=== PATIENT | male | born 1945 | race Caucasian/White ===

== ENCOUNTER 2017-03-09 15:51 | Observation (INO) ==
[2017-03-09 16:57] LABS: Basophils % 0.5 %; Eosinophils # 0.2 K/mcL (0.0-0.6); Eosinophils % 3.9 %; Hematocrit 45.5 % (37.5-50.1); Hemoglobin 15.2 g/dL (12.9-16.9); Immature Granulocytes % 0.3 % (0-4); Lymphocytes # 2.2 K/mcL (0.6-4.6); Lymphocytes % 34.8 %; Mean Corpuscular HGB Conc 33.4 g/dL (31.6-35.5); Mean Corpuscular Hemoglobin 30.5 pg (28.0-33.3); Mean Corpuscular Volume 91.2 fL (83.0-100.0); Mean Platelet Volume 9.7 fL (9.4-12.4); Monocytes # 0.3 K/mcL (0.0-1.3); Neutrophils # 3.4 K/mcL (1.6-8.9); Platelet Count 216 K/mcL (140-400); Red Blood Count 4.99 M/mcL (4.19-5.50); Red Cell Distribution Width 13.1 % (11.5-14.5); Segmented Neutrophils % 55.5 %
[2017-03-09 16:59] LABS: INR 1.2; Prothrombin Time 12.5 Seconds (9.4-12.1)
[2017-03-09 17:02] LABS: Activated Partial Thrombo Time 32.2 Seconds (26.0-36.0)
[2017-03-09 17:12] LABS: Albumin 3.9 g/dL (3.5-5.0); Albumin/Globulin Ratio 1.2 (1.1-2.2); BUN/Creatinine Ratio 13 (6-26); Bilirubin,Direct 0.3 mg/dL (0.0-0.5); Bilirubin,Indirect 0.4 mg/dL (0.0-1.2); Bilirubin,Total 0.7 mg/dL (0.2-1.2); Blood Urea Nitrogen 13 mg/dL (8-26); Calcium 9.2 mg/dL (8.6-10.8); Carbon Dioxide 26 mEq/L (19-29); Chloride 101 mEq/L (98-109); Globulin 3.3 g/dL (2.4-3.5); Glucose 91 mg/dL (70-99); Osmolality,Calculated 282 (280-300); Potassium 4.4 mEq/L (3.5-4.5); Sodium 136 mEq/L (136-145); Total Protein 7.2 g/dL (6.0-8.3); eGFR For African Americans > 60 (> 60); eGFR For Non-African Americans > 60 (> 60)
[2017-03-09] MEDS ORDERED: Nitroglycerin 0.4 MG TAB.SUBL SL STA (18:01)
--- NOTE | 2017-03-09 18:23 | Emergency Department Note ---
Disposition Clinical Impression: Chest pain Qualifiers: Ischemic chest pain type: stable angina pectoris Disposition: Admitted As Inpatient Referrals: Miguel Ball MD [Primary Care Provider] - Forms: ED Satisfaction Letter Chest Pain HPI - General Chief Complaint: ED Chest Pain Stated Complaint: chest pain// numb on left of face Time Seen by Provider: 03/09/17 16:02 Source: patient Limitations: no limitations Vital Signs Reviewed: Yes Nursing Notes Reviewed: Yes - History of Present Illness Pt complaint: chest pain Onset (ago): day(s) (2) Duration: intermittent Onset: during rest Pain Location: substernal Severity scale (1-10): 4 Quality: heaviness Pain Radiation: LUE, back, neck Improves with: nothing Worsens with: nothing Associated symptoms: Reports: sense of impending doom. Denies: nausea, vomiting , diaphoresis, syncope, palpitations Treatments prior to arrival chest pain: aspirin - Related Data Home Medications Medication Instructions Recorded Confirmed Albuterol Sulfate [Proair Hfa] 2 puff IH Q6H PRN 07/22/16 07/28/16 Aspirin 81 mg PO DAILY 07/22/16 07/28/16 Atorvastatin [Lipitor] 40 mg PO HS 07/22/16 07/28/16 Carvedilol [Coreg] 6.25 mg PO BIDWM 07/22/16 07/28/16 Cetirizine HCl [Zyrtec] 10 mg PO DAILY 07/22/16 07/28/16 Clopidogrel [Plavix] 75 mg PO DAILY 07/22/16 07/28/16 Docusate Sodium [Dok] 100 mg PO BID PRN 07/22/16 07/28/16 Esomeprazole Magnesium [Nexium] 40 mg PO DAILY 07/22/16 07/28/16 Fluticasone/Salmeterol [Advair 1 puff IH Q12H 07/22/16 07/28/16 250-50 Diskus] Ipratropium/Albuterol Neb [Duoneb] 3 ml IH QID PRN 07/22/16 07/28/16 Nitroglycerin [Nitro-Dur] 1 patch TD Q24H 07/22/16 07/28/16 OxyCODONE/APAP 7.5/325 [Percocet 1 each PO Q6H PRN 07/22/16 07/28/16 7.5/325 MG] Tiotropium [Spiriva] 1 cap IH DAILY 07/22/16 07/28/16 diazePAM [Valium] 10 mg PO BID 07/22/16 07/28/16 Ropinirole HCl [Requip] 0.5 mg PO HS 07/28/16 07/28/16 Previous Rx's Medication Instructions Recorded Ranolazine [Ranexa] 500 mg PO BID #60 tab.er.12h 07/23/16 levoFLOXacin [Levofloxacin] 750 mg PO DAILY #7 tablet 07/23/16 predniSONE [PredniSONE] 40 mg PO DAILY #10 tablet 07/23/16 Allergies Allergy/AdvReac Type Severity Reaction Status Date / Time venlafaxine [From Effexor] AdvReac Vomiting Verified 01/21/16 10:43 All systems ED: reviewed and negative except as stated. Constitutional: Denies: fever, chills, weakness Cardiovascular: Reports: chest pain Gastrointestinal: Denies: nausea, vomiting Chest Pain PMH - Past Medical History Medical history: Reports: COPD, coronary artery disease, CVA, GERD, hyperlipidemia, hypertension, myocardial infarction, other Surgical history: Reports: coronary bypass (CABG), LE stent(s) Psychiatric history: Reports: anxiety, depression - Social History Smoking Status: Current every day smoker Alcohol use: Reports: none Drug use: Reports: none Physical Exam - General Limitations: no limitations General appearance: alert - Head Head exam: atraumatic, normocephalic, normal inspection - Eye Eye exam: Present: normal appearance, PERRL, EOMI - Expanded Eye Exam Pupils: Left: reactive - ENT ENT exam: normal exam, normal oropharynx, mucous membranes moist - Expanded ENT Exam External ear exam: Present: normal external inspection Mouth exam: Present: normal external inspection Teeth exam: Present: normal inspection Throat exam: Present: normal inspection - Neck Neck exam: Present: normal inspection, full ROM, trachea midline - Chest Chest inspection: Present: normal inspection, symmetric chest wall rise - Respiratory Respiratory exam: Present: normal lung sounds bilaterally - Cardiovascular Cardiovascular exam: Present: regular rate, normal rhythm, normal heart sounds - Abdominal Exam Abdominal exam: Present: soft, Non-Tender. Absent: tenderness, distention, guarding, rebound, rigidity - Extremities Exam Extremities exam: Present: normal inspection, full ROM. Absent: tenderness, pedal edema - Expanded Upper Extremity Exam Shoulder exam: Present: normal inspection, full ROM Arm exam: Present: normal inspection, full ROM Elbow exam: Present: normal inspection, full ROM Forearm/Wrist exam: Present: normal inspection, full ROM Hand exam: Present: normal inspection, full ROM Vascular exam: Normal: capillary refill, radial pulse - Expanded Lower Extremity Exam Hip/Pelvis exam: Present: normal inspection, full ROM Upper leg exam: Present: normal inspection, full ROM Knee exam: Present: normal inspection, full ROM Lower leg exam: Present: normal inspection, full ROM Ankle exam: Present: normal inspection, full ROM Foot/toe exam: Present: normal inspection, full ROM Neurovascular/Tendon exam: Absent: motor deficit, sensory deficit, tendon deficit - Back Exam Back exam: Present: normal inspection, full ROM. Absent: tenderness - Neurological Exam Neurological exam: Present: alert, oriented X3 - Expanded Neurological Exam Patient oriented to: Present: person, place, time Coma Scale Eye Opening: Spontaneous Coma Scale Motor Response: Obeys Commands Coma Scale Verbal Response: Oriented Coma Scale Total: 15 - Psychiatric Psychiatric exam: Present: normal affect, normal mood - Skin Skin exam: Present: warm, dry, intact, normal color Course Vital Signs Temperature 97.4 F L 03/09/17 15:55 Pulse Rate 73 03/09/17 15:55 Respiratory Rate 18 03/09/17 15:55 Blood Pressure 131/77 03/09/17 15:55 O2 Sat by Pulse Oximetry 96 03/09/17 15:55 Temperature 97.4 F L 03/09/17 15:55 Pulse Rate 63 03/09/17 18:06 Respiratory Rate 18 03/09/17 18:06 Blood Pressure 124/90 03/09/17 18:06 O2 Sat by Pulse Oximetry 97 03/09/17 18:06 Oxygen Delivery Oxygen Delivery Room Air Chest Pain - Differential Diagnosis Likely: stable angina, unstable angina pectoris, atypical chest pain, st elevation myocardial infraction, chest pain - Medical Records Medical records reviewed: Yes I reviewed the patient's medical records. - Lab Data Lab results reviewed: Yes I reviewed the patient's lab results. Result diagrams: 03/09/17 16:38 03/09/17 16:38 Lab Results 03/09/17 03/09/17 03/09/17 Range/Units 16:38 16:38 16:38 WBC (4.3-11.1) K/mcL RBC (4.19-5.50) M/mcL Hgb (12.9-16.9) g/dL Hct (37.5-50.1) % MCV (83.0-100.0) fL MCH (28.0-33.3) pg MCHC (31.6-35.5) g/dL RDW (11.5-14.5) % Plt Count (140-400) K/mcL MPV (9.4-12.4) fL Immature Gran % (0-4) % Seg Neutrophils % % Lymphocytes % % Monocytes % % Eosinophils % % Basophils % % Neutrophils # (1.6-8.9) K/mcL Lymphocytes # (0.6-4.6) K/mcL Monocytes # (0.0-1.3) K/mcL Eosinophils # (0.0-0.6) K/mcL Basophils # (0.0-0.2) K/mcL PT 12.5 H (9.4-12.1) Seconds INR 1.2 APTT 32.2 (26.0-36.0) Seconds Sodium (136-145) mEq/L Potassium (3.5-4.5) mEq/L Chloride (98-109) mEq/L Carbon Dioxide (19-29) mEq/L BUN (8-26) mg/dL Creatinine (0.72-1.25) mg/dL Est GFR ( Amer) (> 60) Est GFR (Non-Af Amer) (> 60) BUN/Creatinine Ratio (6-26) Glucose (70-99) mg/dL Calculated Osmolality (280-300) Calcium (8.6-10.8) mg/dL Total Bilirubin 0.7 (0.2-1.2) mg/dL Direct Bilirubin 0.3 (0.0-0.5) mg/dL Indirect Bilirubin 0.4 (0.0-1.2) mg/dL AST 18 (5-34) Units/L ALT 14 (0-55) Units/L Alkaline Phosphatase 100 (38-126) Units/L Troponin I (0-0.03) ng/mL B-Natriuretic Peptide 38 (0-100) pg/mL Serum Total Protein 7.2 (6.0-8.3) g/dL Albumin 3.9 (3.5-5.0) g/dL Globulin 3.3 (2.4-3.5) g/dL Albumin/Globulin Ratio 1.2 (1.1-2.2) 03/09/17 03/09/17 03/09/17 Range/Units 16:38 16:38 16:38 WBC 6.2 (4.3-11.1) K/mcL RBC 4.99 (4.19-5.50) M/mcL Hgb 15.2 (12.9-16.9) g/dL Hct 45.5 (37.5-50.1) % MCV 91.2 (83.0-100.0) fL MCH 30.5 (28.0-33.3) pg MCHC 33.4 (31.6-35.5) g/dL RDW 13.1 (11.5-14.5) % Plt Count 216 (140-400) K/mcL MPV 9.7 (9.4-12.4) fL Immature Gran % 0.3 (0-4) % Seg Neutrophils % 55.5 % Lymphocytes % 34.8 % Monocytes % 5.0 % Eosinophils % 3.9 % Basophils % 0.5 % Neutrophils # 3.4 (1.6-8.9) K/mcL Lymphocytes # 2.2 (0.6-4.6) K/mcL Monocytes # 0.3 (0.0-1.3) K/mcL Eosinophils # 0.2 (0.0-0.6) K/mcL Basophils # 0.0 (0.0-0.2) K/mcL PT (9.4-12.1) Seconds INR APTT (26.0-36.0) Seconds Sodium 136 (136-145) mEq/L Potassium 4.4 (3.5-4.5) mEq/L Chloride 101 (98-109) mEq/L Carbon Dioxide 26 (19-29) mEq/L BUN 13 (8-26) mg/dL Creatinine 1.02 (0.72-1.25) mg/dL Est GFR ( Amer) > 60 (> 60) Est GFR (Non-Af Amer) > 60 (> 60) BUN/Creatinine Ratio 13 (6-26) Glucose 91 (70-99) mg/dL Calculated Osmolality 282 (280-300) Calcium 9.2 (8.6-10.8) mg/dL Total Bilirubin (0.2-1.2) mg/dL Direct Bilirubin (0.0-0.5) mg/dL Indirect Bilirubin (0.0-1.2) mg/dL AST (5-34) Units/L ALT (0-55) Units/L Alkaline Phosphatase (38-126) Units/L Troponin I 0.01 (0-0.03) ng/mL B-Natriuretic Peptide (0-100) pg/mL Serum Total Protein (6.0-8.3) g/dL Albumin (3.5-5.0) g/dL Globulin (2.4-3.5) g/dL Albumin/Globulin Ratio (1.1-2.2) - Radiology Data Radiology results reviewed: Yes I reviewed the patient's radiology results. - EKG Data EKG attestation: Yes I reviewed and interpreted this EKG. EKG shows normal: sinus rhythm Rate: normal Rhythm: NSR [place]/QRS: left axis deviation, LBBB Interpretation: no acute changes
[2017-03-09] MEDS ORDERED: Naloxone 0.4 MG/ML INJ IVP PRN (19:45)
[2017-03-09] MEDS ORDERED: *HR* OxyCODONE/APAP 7.5/325 TABLET PO PRN (19:46)
[2017-03-09] MEDS ORDERED: diazePAM 10 MG TABLET PO PRN (19:46)
[2017-03-09] MEDS ORDERED: Ondansetron ODT 4 MG TAB.RAPDIS PO PRN (19:46)
--- NOTE | 2017-03-09 20:47 | Internal Med History&Physical ---
Date of Encounter: 03/09/17 Time of Encounter: 20:44 Assessment and Plan (1) Chest pain Current visit: Yes Status: Acute Patient presenting with increasing fatigue, chest pressure on and off for the last few weeks, and had stabbing, sharp chest pain today. EKG with no ST changes and initial troponin negative at 0.01. Patient with history of CAD s/ p 2 vessel CABG in 2000 and stent placement in 2004. Patient had abnormal stress test07/23/16, which showed mild-moderate ischemia in the mid-apical anterior wall. He was started on Ranexa at that time, and a LHC was considered, but his symptoms improved after starting Ranexa. Other recent cardiac testing shows: LHC 04/28/14: LVEF 50%, 2 of 2 patent bypass grafts, MARTIN to LAD patent, distal LAD very small and diffusely diseased. TTE 04/15/15: LVEF 50%, moderate diastolic dysfunction, normal RV, mildly dilated LA, no significant valvular dysfunction Regadenoson nuclear stress 04/15/15: LVEF 50%, small apical infarct, negative for ischemia Continuous shelter monitor serial troponins Consult to Cardiology given significant history and abnormal stress test in 2015. NPO after midnight for possible procedure tomorrow. Qualifiers: Chest pain type: chest pain due to myocardial ischemia Ischemic chest pain type: unspecified angina pectoris type Qualified Code(s): I20.9 - Angina pectoris, unspecified (2) Tobacco abuse Current visit: No Status: Chronic Patient continues to smoke about 1/2 PPD, despite being aware of medical consequences. Discussed smoking cessation, patient not ready to quit. smoking cessation education ordered. Nicotine patch. (3) Coronary artery disease Current visit: No Status: Chronic Patient with CAD s/p CABG 2000 and stent placement 2004. Continue aspirin, plavix, atorvastatin and Ranexa. Qualifiers: Coronary Disease-Associated Artery/Lesion type: teller artery [place] vs. transplanted heart: teller heart Associated angina: with unstable angina Qualified Code(s): I25.110 - Atherosclerotic heart disease of teller coronary artery with unstable angina pectoris (4) DVT prophylaxis Current visit: Yes Status: Acute anti-embolic stockings lovenox 40mg SQ daily Internal Medicine - H&P: HPI Chief complaint: chest pain Admitted From: Emergency Dept Plans for Post Hospital Care: Home History of present illness: Mr. Alarcon is a 72 year old male with hypertension, hyperlipidemia, COPD, coronary artery disease status post two-vessel bypass and stent placement presented to the emergency department today with complaints of chest pain. Patient reports that over the last couple weeks he has felt more fatigued, he has had chest pressure on and off, his legs have been hurting, he has had headaches. He reports that today he developed actual chest pain that was sharp and stabbing on top of the pressure that he has been feeling on and off. Accompanying this chest pain is the left side of his face felt funny. Patient reports occasional lightheadedness today as well. He reports he has shortness of breath but is not any worse than his usual baseline. He has a cough chronically also not any worse than his usual baseline. He denies any palpitations. Evaluation in the emergency department including EKG showed normal sinus rhythm, left axis deviation and left bundle branch block but no acute changes from previous. Chest x-ray showed no acute cardiopulmonary process. Troponin was negative at 0.01, BNP was normal at 38. On exam, patient alert and oriented, in no acute distress. Heart had regular rate and rhythm lungs were clear bilaterally to auscultation, he had no edema in extremities. Past Med Surg Social Fam HX - Past Medical History Medical history: COPD, coronary artery disease, CVA, GERD, hyperlipidemia, hypertension, myocardial infarction, other Psychiatric history: anxiety, depression - Past Surgical History Surgical History: coronary bypass (CABG), LE stent(s) - Social History Smoking Status: Current every day smoker Packs per day: 1/2 Smokeless Tobacco Status: No Alcohol use: none Drug use: none - Family History Brother Age at : 33 Cause of : [place] Hx Family Cardiac Disorders: Yes ([place], [place]) Hx Family Respiratory Disorders: No Hx Family Cancer: No Hx Family GI Disorders: No Hx Family Genitourinary Disorders: No Hx Family Endocrine Disorder: No Hx Family Musculoskeletal Disorders: No Hx Family Neuromuscular Disorders: No Hx Family Neurologic Disorders: No Hx Family HEENT Disorders: No Hx Family Autoimmune Disorders: No Hx Family Reproductive Disorders: No Hx Family Psychosocial Disorders: No Hx Family Medical Disorders: No Mother Living Status: Age at : 62 Cause of : cancer Hx Family Cancer: Yes Internal Medicine - H&P: Meds Albuterol Sulfate [Proair Hfa] 2 puff IH Q6H PRN 07/22/16 [History] Aspirin 81 mg PO DAILY 07/22/16 [History] Atorvastatin [Lipitor] 40 mg PO HS 07/22/16 [History] Carvedilol [Coreg] 6.25 mg PO BIDWM 07/22/16 [History] Cetirizine HCl [Zyrtec] 10 mg PO DAILY 07/22/16 [History] Clopidogrel [Plavix] 75 mg PO DAILY 07/22/16 [History] Esomeprazole Magnesium [Nexium] 40 mg PO DAILY 07/22/16 [History] Fluticasone/Salmeterol [Advair 250-50 Diskus] 1 puff IH Q12H 07/22/16 [History] Ipratropium/Albuterol Neb [Duoneb] 3 ml IH BID 07/22/16 [History] OxyCODONE/APAP 7.5/325 [Percocet 7.5/325 MG] 1 each PO Q6H PRN 07/22/16 [History ] Tiotropium [Spiriva] 18 mcg IH DAILY 07/22/16 [History] diazePAM [Valium] 10 mg PO BID PRN 07/22/16 [History] Ranolazine [Ranexa] 500 mg PO BID #60 tab.er.12h 07/23/16 [Rx] Nitroglycerin 0.2 mg TD DAILY 03/09/17 [History] Ondansetron HCl [Zofran] 4 - 8 mg PO TIDAC PRN 03/09/17 [History] Allergies venlafaxine [From Effexor] Adverse Reaction (Verified 01/21/16 10:43) Vomiting All Systems PM: A 10-system review of systems was performed and is negative for pertinent findings except as documented above in the HPI. - Constitutional Constitutional: fatigue, no chills, no fever(s), no night sweats - EENT Eyes: no change in vision, no discharge, no pain, no photophobia Ears: no ear discharge, no ear pain, no tinnitus Nose, mouth and throat: no dysphagia, no nasal discharge, no neck pain, no sore throat - Cardiovascular Cardiovascular ROS IM: chest pain, dyspnea, dyspnea on exertion, lightheadedness , no diaphoresis, no palpitations, no syncope - Respiratory Respiratory: cough, dyspnea, no wheezing, no excessive phlegm production - Gastrointestinal Gastrointestinal: no abdominal pain, no diarrhea, no hematemesis, no hematochezia, no melena, no nausea, no vomiting - Musculoskeletal Musculoskeletal ROS IM: tingling (left side of face), no numbness - Integumentary Integumentary IM: no rash, no unusual bruising - Neurological Neurological ROS: no confusion, no convulsions, no focal weakness, no numbness, no tingling, no tremor(s) - Hematologic/Lymphatic Hematologic/Lymphatic: no easy bruising - Constitutional Vitals: Temp Pulse Resp BP Pulse Ox 97.7 F 68 18 115/46 94 03/09/17 19:38 03/09/17 19:38 03/09/17 19:38 03/09/17 19:38 03/09/17 19:38 General appearance: Present: A&O X 3, pleasant, no acute distress - Head Head exam: Present: atraumatic, normocephalic - Eye Eye exam: Present: PERRL, conjuntiva pink, sclera anicteric Pupils: Present: PERRL - Neck Neck exam general surgery: Present: supple, trachea midline. Absent: lymphadenopathy - Respiratory Respiratory exam: Present: CTAB. Absent: accessory muscle use, rales, rhonchi, wheezes - Cardiovascular Cardiovascular exam: Present: RRR, +S1, +S2. Absent: diastolic murmur, gallop, rubs, systolic murmur - GI/Abdominal GI/Abdominal exam: Present: normal bowel sounds, soft, no peritoneal signs. Absent: distended, tenderness - Extremities Exam Extremities exam: Present: warm, radial pulses palpable and symetrical. Absent : calf tenderness, cyanotic, pedal edema - Neurological Exam Neurological exam: Present: CN II-XII intact, oriented X3, no focal deficits. Absent: facial droop, speech deficit - Skin Skin exam: Present: dry, intact Internal Med - H&P Results - Labs CBC & Chem 7: 03/09/17 16:38 03/09/17 16:38 Labs: All Lab Results (24 Hours) 03/09/17 03/09/17 03/09/17 Range/Units 16:38 16:38 16:38 WBC (4.3-11.1) K/mcL RBC (4.19-5.50) M/mcL Hgb (12.9-16.9) g/dL Hct (37.5-50.1) % MCV (83.0-100.0) fL MCH (28.0-33.3) pg MCHC (31.6-35.5) g/dL RDW (11.5-14.5) % Plt Count (140-400) K/mcL MPV (9.4-12.4) fL Immature Gran % (0-4) % Seg Neutrophils % % Lymphocytes % % Monocytes % % Eosinophils % % Basophils % % Neutrophils # (1.6-8.9) K/mcL Lymphocytes # (0.6-4.6) K/mcL Monocytes # (0.0-1.3) K/mcL Eosinophils # (0.0-0.6) K/mcL Basophils # (0.0-0.2) K/mcL PT 12.5 H (9.4-12.1) Seconds INR 1.2 APTT 32.2 (26.0-36.0) Seconds Sodium (136-145) mEq/L Potassium (3.5-4.5) mEq/L Chloride (98-109) mEq/L Carbon Dioxide (19-29) mEq/L BUN (8-26) mg/dL Creatinine (0.72-1.25) mg/dL Est GFR ( Amer) (> 60) Est GFR (Non-Af Amer) (> 60) BUN/Creatinine Ratio (6-26) Glucose (70-99) mg/dL Calculated Osmolality (280-300) Calcium (8.6-10.8) mg/dL Total Bilirubin 0.7 (0.2-1.2) mg/dL Direct Bilirubin 0.3 (0.0-0.5) mg/dL Indirect Bilirubin 0.4 (0.0-1.2) mg/dL AST 18 (5-34) Units/L ALT 14 (0-55) Units/L Alkaline Phosphatase 100 (38-126) Units/L Troponin I (0-0.03) ng/mL B-Natriuretic Peptide 38 (0-100) pg/mL Serum Total Protein 7.2 (6.0-8.3) g/dL Albumin 3.9 (3.5-5.0) g/dL Globulin 3.3 (2.4-3.5) g/dL Albumin/Globulin Ratio 1.2 (1.1-2.2) 03/09/17 03/09/17 03/09/17 Range/Units 16:38 16:38 16:38 WBC 6.2 (4.3-11.1) K/mcL RBC 4.99 (4.19-5.50) M/mcL Hgb 15.2 (12.9-16.9) g/dL Hct 45.5 (37.5-50.1) % MCV 91.2 (83.0-100.0) fL MCH 30.5 (28.0-33.3) pg MCHC 33.4 (31.6-35.5) g/dL RDW 13.1 (11.5-14.5) % Plt Count 216 (140-400) K/mcL MPV 9.7 (9.4-12.4) fL Immature Gran % 0.3 (0-4) % Seg Neutrophils % 55.5 % Lymphocytes % 34.8 % Monocytes % 5.0 % Eosinophils % 3.9 % Basophils % 0.5 % Neutrophils # 3.4 (1.6-8.9) K/mcL Lymphocytes # 2.2 (0.6-4.6) K/mcL Monocytes # 0.3 (0.0-1.3) K/mcL Eosinophils # 0.2 (0.0-0.6) K/mcL Basophils # 0.0 (0.0-0.2) K/mcL PT (9.4-12.1) Seconds INR APTT (26.0-36.0) Seconds Sodium 136 (136-145) mEq/L Potassium 4.4 (3.5-4.5) mEq/L Chloride 101 (98-109) mEq/L Carbon Dioxide 26 (19-29) mEq/L BUN 13 (8-26) mg/dL Creatinine 1.02 (0.72-1.25) mg/dL Est GFR ( Amer) > 60 (> 60) Est GFR (Non-Af Amer) > 60 (> 60) BUN/Creatinine Ratio 13 (6-26) Glucose 91 (70-99) mg/dL Calculated Osmolality 282 (280-300) Calcium 9.2 (8.6-10.8) mg/dL Total Bilirubin (0.2-1.2) mg/dL Direct Bilirubin (0.0-0.5) mg/dL Indirect Bilirubin (0.0-1.2) mg/dL AST (5-34) Units/L ALT (0-55) Units/L Alkaline Phosphatase (38-126) Units/L Troponin I 0.01 (0-0.03) ng/mL B-Natriuretic Peptide (0-100) pg/mL Serum Total Protein (6.0-8.3) g/dL Albumin (3.5-5.0) g/dL Globulin (2.4-3.5) g/dL Albumin/Globulin Ratio (1.1-2.2) - Diagnostic Studies Chest x-ray Additional comments: Chest X-Ray 03/09/17 16:08 IMPRESSION: The chest appear stable without acute cardiopulmonary process identified. D/ / Ab Carpio MD / Ab Carpio MD Interpreting Provider: Ab Carpio MD
[2017-03-09] MEDS ORDERED: Ranolazine 500 MG TAB.ER.12H PO SCH (21:00)
[2017-03-09] MEDS: Ipratropium/Albuterol Neb 3 ML IH SCH (21:00)
[2017-03-09] MEDS: Nitroglycerin 0.2 MG PATCH.TD24 TD SCH (21:45)
[2017-03-09] MEDS: Nicotine 14 MG PATCH.TD24 TD SCH (21:45)
[2017-03-10 04:54] LABS: Basophils % 0.6 %; Eosinophils # 0.2 K/mcL (0.0-0.6); Eosinophils % 3.7 %; Hemoglobin 14.8 g/dL (12.9-16.9); Immature Granulocytes % 0.3 % (0-4); Lymphocytes # 2.3 K/mcL (0.6-4.6); Lymphocytes % 35.8 %; Mean Corpuscular HGB Conc 33.6 g/dL (31.6-35.5); Mean Corpuscular Hemoglobin 30.8 pg (28.0-33.3); Mean Corpuscular Volume 91.7 fL (83.0-100.0); Monocytes # 0.4 K/mcL (0.0-1.3); Monocytes % 6.4 %; Neutrophils # 3.3 K/mcL (1.6-8.9); Platelet Count 196 K/mcL (140-400); Red Cell Distribution Width 13.1 % (11.5-14.5); Segmented Neutrophils % 53.2 %
[2017-03-10 05:01] LABS: BUN/Creatinine Ratio 13 (6-26); Blood Urea Nitrogen 14 mg/dL (8-26); Calcium 9.2 mg/dL (8.6-10.8); Carbon Dioxide 25 mEq/L (19-29); Chloride 104 mEq/L (98-109); Chol/HDL Ratio 4.8 (0-4.9); Cholesterol 149 mg/dL (< 200); Glucose 95 mg/dL (70-99); HDL Cholesterol 31 mg/dL (40-59); LDL Cholesterol,Calculated 89 mg/dL (0-99); Osmolality,Calculated 286 (280-300); Potassium 4.1 mEq/L (3.5-4.5); Sodium 138 mEq/L (136-145); Triglycerides 145 mg/dL (< 150); eGFR For African Americans > 60 (> 60); eGFR For Non-African Americans > 60 (> 60)
--- NOTE | 2017-03-10 08:42 | Cardiology Consult Note ---
Date of Encounter: 03/10/17 Time of Encounter: 08:42 Assessment and Plan (1) Chest pain Current Visit: Yes Status: Acute Substernal chest pain worsening over the last 2 weeks and intermittent, worse with exertion. Patient feeling extremely fatigued all the time. CP yesterday atypical, sharp and reproducible with palpation. - Abnormal stress test 07/23/2016 showed mild to moderate ischemia in mid apical anterior wall. Hx CABG and 2 stents. Continues to smoke 1/2 ppd. - Refused heart catheterization at the time and was started on Ranexa with good symptom relief at the time. - Discussed heart catheterization; however, since area of ischemia on recent stress test correlates with last [facility] on 04/28/14 with distal LAD small with diffuse disease, will continue medical management. - Continue cardiac monitoring - Continue Aspirin, Lipitor, Coreg, Plavix. - Increase Ranexa to 1000mg BID. Qualifiers: Chest pain type: chest pain due to myocardial ischemia Ischemic chest pain type: unspecified angina pectoris type Qualified Code(s): I20.9 - Angina pectoris, unspecified Discussion w patient/family: The assessment and plan as outlined above was discussed with the patient and/or family members who expressed understanding and agreement. All questions were answered. Thank you for involving us in the care of your patient. Please call with any questions. History of Present Illness Consult date: 03/09/17 Requesting physician: Chitra Carrion Consult reason: unstable angina Chief complaint: chest pain x 2 weeks History of present illness: Mr. Alarcon is a 72 year old male who presented to [facility] ED with a chief complaint of intermittent chest pain described as substernal pressure over the last 2 weeks. Patient also states he has been extremely fatigued over the last few weeks. Then had sharp stabbing chest pains yesterday. Past medical history significant for hyperlipidemia, hypertension, COPD, CAD status post 2 vessel CABG in 2000 followed by 2 stents placed in 2004. Patient follows with yarn salvager Dr. Gallegos and PCP Dr. Ball. Patient most recently had an normal stress test on 07/23/2016 that showed mild to moderate ischemia in the mid apical anterior wall. At that time he had not wanted to do a heart catheterization and had started Ranexa. Patient states this worked well for him for a long time. However now it does not seem to last as long. Left heart catheterization on 04/28/2014 showed an EF of 50%, patent grafts, distal LAD small and diffusely diseased. Past Med Surg Social Fam HX - Past Medical History Medical history: COPD, coronary artery disease, CVA, GERD, hyperlipidemia, hypertension, myocardial infarction, other Psychiatric history: anxiety, depression - Past Surgical History Surgical History: coronary bypass (CABG), LE stent(s) - Social History Smoking Status: Current every day smoker Packs per day: 1/2 Smokeless Tobacco Status: No Alcohol use: none Drug use: none - Family History Brother Age at : 33 Cause of : [place] Hx Family Cardiac Disorders: Yes ([place], Murmur) Hx Family Respiratory Disorders: No Hx Family Cancer: No Hx Family GI Disorders: No Hx Family Genitourinary Disorders: No Hx Family Endocrine Disorder: No Hx Family Musculoskeletal Disorders: No Hx Family Neuromuscular Disorders: No Hx Family Neurologic Disorders: No Hx Family HEENT Disorders: No Hx Family Autoimmune Disorders: No Hx Family Reproductive Disorders: No Hx Family Psychosocial Disorders: No Hx Family Medical Disorders: No Mother Living Status: Age at : 62 Cause of : cancer Hx Family Cancer: Yes Medications and Allergies Albuterol Sulfate [Proair Hfa] 2 puff IH Q6H PRN 07/22/16 [History] Aspirin 81 mg PO DAILY 07/22/16 [History] Atorvastatin [Lipitor] 40 mg PO HS 07/22/16 [History] Carvedilol [Coreg] 6.25 mg PO BIDWM 07/22/16 [History] Cetirizine HCl [Zyrtec] 10 mg PO DAILY 07/22/16 [History] Clopidogrel [Plavix] 75 mg PO DAILY 07/22/16 [History] Esomeprazole Magnesium [Nexium] 40 mg PO DAILY 07/22/16 [History] Fluticasone/Salmeterol [Advair 250-50 Diskus] 1 puff IH Q12H 07/22/16 [History] Ipratropium/Albuterol Neb [Duoneb] 3 ml IH BID 07/22/16 [History] OxyCODONE/APAP 7.5/325 [Percocet 7.5/325 MG] 1 each PO Q6H PRN 07/22/16 [History ] Tiotropium [Spiriva] 18 mcg IH DAILY 07/22/16 [History] diazePAM [Valium] 10 mg PO BID PRN 07/22/16 [History] Ranolazine [Ranexa] 500 mg PO BID #60 tab.er.12h 07/23/16 [Rx] Nitroglycerin 0.2 mg TD DAILY 03/09/17 [History] Ondansetron HCl [Zofran] 4 - 8 mg PO TIDAC PRN 03/09/17 [History] Allergies venlafaxine [From Effexor] Adverse Reaction (Verified 01/21/16 10:43) Vomiting All Systems Review: A 10-system review of systems was performed and is negative for pertinent findings except as documented above in the HPI. - Constitutional Constitutional: fatigue, weakness - EENT Eyes: no loss of vision, no pain Nose, mouth and throat: no sore throat, no throat swelling - Cardiovascular Cardiovascular: chest pain at rest, chest pain with exertion, dyspnea at rest, dyspnea on exertion, lightheadedness, palpitations, rapid heart rate, no leg edema, no orthopnea - Respiratory Respiratory: dyspnea - Gastrointestinal Gastrointestinal: abdominal pain, nausea - Genitourinary Genitourinary: dysuria - Integumentary Integumentary: no erythema, no rash - Neurological Neurological: dizziness, memory loss, numbness, no abnormal speech, no focal weakness, no loss of vision Physical Examination Vital Signs, Last 4 Hours Temp Pulse Resp BP Pulse Ox 03/10/17 06:49 97.5 F L 74 17 109/70 91 General: Conversant, No Apparent Distress HEENT: Atraumatic, Mucus Membranes Moist Neck: No JVD Cardiac: Reg Rate and Rhythm Lungs: Normal Breath Sounds Neuro: Alert and responsive, No focal deficits noted Abdomen: Soft, Non-Tender Skin: No rashes noted on visualized skin Musculoskeletal: No Chest Wall Tenderness Extremities: No Edema, Normal Pulses Results 03/10/17 04:18 03/10/17 04:18 Lab Results 03/09/17 03/10/17 03/10/17 22:30 04:18 04:18 WBC 6.3 Hgb 14.8 Hct 44.0 Plt Count 196 Sodium 138 Potassium 4.1 Chloride 104 Carbon Dioxide 25 BUN 14 Creatinine 1.08 Glucose 95 Calcium 9.2 Troponin I 0.00 03/10/17 04:18 WBC Hgb Hct Plt Count Sodium Potassium Chloride Carbon Dioxide BUN Creatinine Glucose Calcium Troponin I 0.00 - Imaging and Cardiology Chest Xray: report reviewed Cardiac cath: pending - EKG Interpretation EKG results cardiology: personally reviewed, sinus rhythm, left bundle branch block, other (EKG done on 2016 at 1558 showed normal sinus rhythm with a rate of 72 bpm. Left axis deviation. Left bundle branch block. QTC of 449. No acute ST elevation or depression.) Consult Discharge Plan - Plan Referrals: Miguel Ball MD [Primary Care Provider] -
[2017-03-10] MEDS ORDERED: Tiotropium 18 MCG inhalation IH SCH (09:00)
[2017-03-10] MEDS ORDERED: Aspirin 81 MG TAB.CHEW PO SCH (09:00)
[2017-03-10] MEDS: Ipratropium/Albuterol Neb 3 ML IH SCH (11:36)
[2017-03-10] MEDS ORDERED: Ranolazine 500 MG TAB.ER.12H PO SCH (12:28)
[2017-03-10] MEDS ORDERED: Ketorolac 15 MG/ML VIAL IVP ONE (12:28)
[2017-03-10] MEDS: Nitroglycerin 0.2 MG PATCH.TD24 TD SCH (12:59)
[2017-03-10] MEDS: Nicotine 14 MG PATCH.TD24 TD SCH (13:00)
[2017-03-10 15:13] VITALS: BP 113/67
--- NOTE | 2017-03-10 15:37 | Discharge Summary ---
Date of Encounter: 03/10/17 Time of Encounter: 14:15 - Discharge Diagnosis (1) Chest pain Priority: Primary Status: Resolved Comments: Patient denied chest pain on day of discharge. Chest x-ray negative. Troponins negative 3. Seen by cardiology who proceeded with medical management and increased dose of his Ranexa. Follow-up outpatient. Qualifiers: Chest pain type: chest pain due to myocardial ischemia Ischemic chest pain type: unspecified angina pectoris type Qualified Code(s): I20.9 - Angina pectoris, unspecified (2) Coronary artery disease Priority: Secondary Status: Chronic Qualifiers: Coronary Disease-Associated Artery/Lesion type: [place] artery [place] vs. transplanted heart: [place] heart Associated angina: with unstable angina Qualified Code(s): I25.110 - Atherosclerotic heart disease of [place] coronary artery with unstable angina pectoris (3) Essential hypertension Priority: Secondary Status: Chronic Comments: Controlled with his regular home medications, follow up outpatient (4) Hyperlipidemia Priority: Secondary Status: Chronic Comments: Lipid panel unremarkable. Recommend continue statin and low-cholesterol diet. Qualifiers: Hyperlipidemia type: mixed hyperlipidemia Qualified Code(s): E78.2 - Mixed hyperlipidemia (5) Tobacco abuse Priority: Secondary Status: Chronic Comments: Declined counseling (6) DVT prophylaxis Priority: Primary Status: Acute Comments: Observation patient. Up ad hunter. - Discharge Medications Prescriptions: Ranolazine [Ranexa] 1,000 mg PO BID #120 tab.er.12h Home Medications: Albuterol Sulfate [Proair Hfa] 2 puff IH Q6H PRN 07/22/16 [History] Aspirin 81 mg PO DAILY 07/22/16 [History] Atorvastatin [Lipitor] 40 mg PO HS 07/22/16 [History] Carvedilol [Coreg] 6.25 mg PO BIDWM 07/22/16 [History] Cetirizine HCl [Zyrtec] 10 mg PO DAILY 07/22/16 [History] Clopidogrel [Plavix] 75 mg PO DAILY 07/22/16 [History] Esomeprazole Magnesium [Nexium] 40 mg PO DAILY 07/22/16 [History] Fluticasone/Salmeterol [Advair 250-50 Diskus] 1 puff IH Q12H 07/22/16 [History] Ipratropium/Albuterol Neb [Duoneb] 3 ml IH BID 07/22/16 [History] OxyCODONE/APAP 7.5/325 [Percocet 7.5/325 MG] 1 each PO Q6H PRN 07/22/16 [History ] Tiotropium [Spiriva] 18 mcg IH DAILY 07/22/16 [History] diazePAM [Valium] 10 mg PO BID PRN 07/22/16 [History] Nitroglycerin 0.2 mg TD DAILY 03/09/17 [History] Ondansetron HCl [Zofran] 4 - 8 mg PO TIDAC PRN 03/09/17 [History] Ranolazine [Ranexa] 1,000 mg PO BID #120 tab.er.12h 03/10/17 [Rx] Allergies/Adverse Reactions: Allergies venlafaxine [From Effexor] Adverse Reaction (Verified 01/21/16 10:43) Vomiting Date of admission: 03/09/17 18:35 Primary care physician: Miguel Ball MD Consults: 03/09/17 20:39 Consult to Cardiology [CONS] Routine Comment: Consulting Provider: [facility] [place] Reason for Consult: 72M with chest pain and fatigue, history of CABG and stents. Abnormal stress 6 months ago started on Ranexa. At that time [facility] considered, but not completed Call Completed: No Discharging clinician: Humaira Schumacher Anticipated date of discharge: 03/10/17 - Patient Status Disposition: Home, Self-Care Condition: Good Functional capacity at discharge: independent ambulation Overall status at discharge: patient is back to baseline - Discharge Instructions Follow Up With: Miguel Ball MD [Primary Care Provider] - 03/17/17 1:15 pm Lalito Gallegos MD [Partnered Physician] - 03/13/17 2:15 pm Additional Instructions: Follow-up with primary care provider and sports centre manager as scheduled Follow-up appointments: If there is not an appointment listed below, please call your physician and schedule a follow-up appointment. If you have congestive heart failure and your symptoms return, make an appointment with your physician. Medication List: Carry an up to date list of medications you are taking at all time. We have given you an updated medication list including any new medications that you have been prescribed. Please provide that list to your primary provider Symptoms: If your condition changes or you experience any of the following symptoms, notify your physician immediately: Unusual or worsening pain, fever, persistent nausea and vomiting, bleeding, increase in swelling (especially in your legs), sudden weight gain, extreme dizziness, chest pain, increased drainage or redness from a wound or incision. Go to the emergency department if you experience a problem with breathing. Weights: If you have a history of swelling or shortness of breath, weigh yourself daily and notify your physician if you have a weight gain of two or more pounds in one day or 5 or more pounds in a week. If you experience any of the warning signs for stroke: Sudden numbness or weakness of the face, arm or leg; especially on one side of the body, sudden confusion, trouble speaking or understanding, sudden trouble seeing in one or both eyes, sudden trouble walking, dizziness, loss of balance or coordination, sudden sever headache with no cause; Call 911 or go to the emergency room. Stroke is a medical emergency. Some risk factors for stroke: Age, cigarette smoking, diabetes, excessive alcohol consumption, family history , high blood pressure, overweight, physical inactivity, prior stroke, heart attack, diagnosis of carotid artery stenosis or other artery disease. If you smoke, STOP: Smoking or tobacco use significantly increases your risk of heart and lung disease. Your chance of disease greatly increases if you continue to smoke. For more information, call the [place] tobacco quit line for smoking cessation QUIT-NOW ( ) - Diet and Activity Activity: increase activity as tolerated Diet: low fat, low cholesterol, low salt diet Hospital course: Mr. Alarcon is a 72 year old male with past medical history of hypertension, hyperlipidemia, COPD, CAD status post CABG 2 and stent placement, and tobacco abuse. Presented to the emergency department chief complaint of chest pain. Patient stating over the couple weeks prior to presentation that he has felt more fatigued, he is also had chest pressure intermittently and his legs have also been hurting and he also endorsed headaches. He reported on the day of presentation that he developed chest pain that was sharp and stabbing as well as continued feelings of pressure. Associated with this chest pain was left side of his face felt funny. He also endorsed occasional lightheadedness on the day of presentation. He also reported shortness of breath but not more so than his baseline. Workup in the emergency department unremarkable. ECG with normal sinus rhythm, left axis deviation, left BBB- without acute changes. Chest x-ray negative. BNP negative. Patient was admitted to the hospitalist service for further evaluation and management. Chest pain atypical and reproducible with palpation insistent with musculoskeletal etiology. Troponins negative 3. Patient denied chest pain or shortness of breath above his normal throughout this admission. He was seen by cardiology and the decision was made to proceed with medical management with an increase in the dose of his Ranexa. He was discharged home in stable condition with close outpatient follow-up recommended. Of note, he had an appointment with cardiology Dr. Gallegos 3 days after discharge. ITS Impressions Chest X-Ray 03/09/17 16:08 IMPRESSION: The chest appear stable without acute cardiopulmonary process identified. D/ / Ab Carpio MD / Ab Carpio MD Interpreting Provider: Ab Carpio MD - Time Spent with Patient Total time spent providing and/or coordinating discharge services: - Constitutional Vitals: Temp Pulse Resp BP Pulse Ox 97.5 F L 69 17 113/67 91 03/10/17 15:12 03/10/17 15:12 03/10/17 15:12 03/10/17 15:12 03/10/17 15:12 General appearance: Present: A&O X 3, pleasant, no acute distress, answers questions appropriately - Head Head exam: Present: atraumatic, normocephalic - Eye Eye exam: Present: PERRL, conjuntiva pink, sclera anicteric Pupils: Present: PERRL - Neck Neck exam general surgery: Present: supple, trachea midline. Absent: lymphadenopathy - Respiratory Respiratory exam: Present: chest wall tenderness, CTAB. Absent: accessory muscle use, rales, respiratory distress, rhonchi, wheezes - Cardiovascular Cardiovascular exam: Present: RRR, +S1, +S2. Absent: diastolic murmur, gallop, rubs, systolic murmur - GI/Abdominal GI/Abdominal exam: Present: normal bowel sounds, soft, no peritoneal signs. Absent: distended, tenderness - Extremities Exam Extremities exam: Present: warm, radial pulses palpable and symetrical. Absent : calf tenderness, cyanotic, pedal edema - Neurological Exam Neurological exam: Present: alert, CN II-XII intact, normal gait, oriented X3, no focal deficits, strengths equal and symetr throughout. Absent: pronater drift, facial droop, speech deficit - Skin Skin exam: Present: dry, intact, normal color, warm
--- NOTE | 2017-03-10 17:34 | Electrocardiograph Report ---
[address] [address] Test Date: 2017-03-09 Pat Name: Dae Alarcon Department: 103 Room: 3B Gender: M Document Image Technician: DEL : 1945 Requested By: Raúl Rivera Order Number: [id number] Reading MD: Yobany Hunter Measurements Intervals [place] Rate: 72 P: 56 MN: 178 QRS: -40 QRSD: 144 T: 66 QT: 424 QTc: 449 Interpretive Statements SINUS RHYTHM MARKED LEFT AXIS DEVIATION LEFT BUNDLE BRANCH BLOCK Electronically Signed On 03-10-2017 17:32:44 EDT by Yobany Hunter
== END 2017-03-10 16:15 | disposition home or self-care (01) ==
LOC: EMEROO 15:51 → 3BNU 15:51
PROVIDERS: ADMIT Hospitalist; ATTEND Nurse Practitioner Family

== ENCOUNTER 2017-08-17 16:27 | Observation (INO) ==
[2017-08-17] MEDS ORDERED: Aspirin 81 MG TAB.CHEW PO STA (17:10)
--- NOTE | 2017-08-17 17:10 | Emergency Department Note ---
Disposition Clinical Impression: ACS (acute coronary syndrome) Disposition: Admitted As Inpatient Condition: Good Referrals: Miguel Ball MD [Primary Care Provider] - Forms: ED Satisfaction Letter Time of Disposition: 17:52 Chest Pain HPI - General Chief Complaint: ED Chest Pain Stated Complaint: CP Time Seen by Provider: 08/17/17 16:49 Source: patient, family Limitations: no limitations Vital Signs Reviewed: Yes Nursing Notes Reviewed: Yes - History of Present Illness HPI Narrative: History of present illness: 72-year-old male history of cardiac stents 2 in [facility] in 2004. 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 The patient sees a certified dialysis technician here at [facility] he saw just a few months ago. Patient states for the past 2 weeks increasing dyspnea on exertion weakness numbness to his left arm and chest pain similar to when he needed stents in 2004. He said occasional diaphoresis and nausea. Denies fever or sputum or medication changes. No calf tenderness recent travel or ill contacts. Consult would get better but since it has not and it has gotten worse and he has got more fatigued T's here for further evaluation. Severity scale (1-10): 7 - Related Data Home Medications Medication Instructions Recorded Confirmed Albuterol Sulfate [Proair Hfa] 2 puff IH Q6H PRN 07/22/16 03/09/17 Aspirin 81 mg PO DAILY 07/22/16 03/09/17 Atorvastatin [Lipitor] 40 mg PO HS 07/22/16 03/09/17 Carvedilol [Coreg] 6.25 mg PO BIDWM 07/22/16 03/09/17 Cetirizine HCl [Zyrtec] 10 mg PO DAILY 07/22/16 03/09/17 Clopidogrel [Plavix] 75 mg PO DAILY 07/22/16 03/09/17 Esomeprazole Magnesium [Nexium] 40 mg PO DAILY 07/22/16 03/09/17 Fluticasone/Salmeterol [Advair 1 puff IH Q12H 07/22/16 03/09/17 250-50 Diskus] Ipratropium/Albuterol Neb [Duoneb] 3 ml IH BID 07/22/16 03/09/17 OxyCODONE/APAP 7.5/325 [Percocet 1 each PO Q6H PRN 07/22/16 03/09/17 7.5/325 MG] Tiotropium [Spiriva] 18 mcg IH DAILY 07/22/16 03/09/17 diazePAM [Valium] 10 mg PO BID PRN 07/22/16 03/09/17 Nitroglycerin 0.2 mg TD DAILY 03/09/17 03/09/17 Ondansetron HCl [Zofran] 4 - 8 mg PO TIDAC PRN 03/09/17 03/09/17 Previous Rx's Medication Instructions Recorded Ranolazine [Ranexa] 1,000 mg PO BID #120 tab.er.12h 03/10/17 Allergies Allergy/AdvReac Type Severity Reaction Status Date / Time venlafaxine [From Effexor] AdvReac Vomiting Verified 08/17/17 16:32 All systems ED: reviewed and negative except as stated. Constitutional: Reports: weakness Cardiovascular: Reports: chest pain, dyspnea on exertion Gastrointestinal: Reports: nausea. Denies: vomiting Chest Pain PMH - Past Medical History Medical history: Reports: COPD, coronary artery disease, CVA, GERD, hyperlipidemia, hypertension, myocardial infarction, other Surgical history: Reports: coronary bypass (CABG), LE stent(s) Psychiatric history: Reports: anxiety, depression - Social History Smoking Status: Current every day smoker Alcohol use: Reports: none Drug use: Reports: none Physical Exam - General Limitations: no limitations General appearance: alert, in distress - Head Head exam: atraumatic, normocephalic - Eye Eye exam: Present: normal appearance, PERRL - ENT ENT exam: normal exam, normal oropharynx - Neck Neck exam: Present: normal inspection, full ROM - Chest Chest inspection: Present: normal inspection, symmetric chest wall rise - Respiratory Respiratory exam: Present: normal lung sounds bilaterally - Cardiovascular Cardiovascular exam: Present: regular rate, normal rhythm - Abdominal Exam Abdominal exam: Present: soft, Non-Tender - Extremities Exam Extremities exam: Present: normal inspection, full ROM - Expanded Lower Extremity Exam Neurovascular/Tendon exam: Present: normal capillary refill Gait: observed and normal - Back Exam Back exam: Present: normal inspection, full ROM - Neurological Exam Neurological exam: Present: alert, oriented X3, CN II-XII intact - Psychiatric Psychiatric exam: Present: normal affect, normal mood Course - Reevaluation(s) Reevaluation #1: Patient's physical examination is benign EKG shows nonspecific changes. Patient has heart score of 5. Patient will get a troponin chest x-ray aspirin one sublingual nitroglycerin chest x-ray admission anticipated. Provided 35 minutes critical care service for this patient disposition pending. Time: 17:10 Reevaluation #2: ED workup was completed. Chest x-ray labs including troponin within normal limits. Discussed with the patient and family bedside he is agreeable for admission. Hospitalist patient decision to admit entered into the computer. No tragal ordered. Awaiting on hospitalist call back for admission. Time: 17:46 Reevaluation #3: DISCUSSED case with Cindy Wilhelm hospitalist who accepted the patient for admission Time: 17:50 Vital Signs Temperature 97.8 F 08/17/17 16:37 Pulse Rate 67 08/17/17 16:37 Respiratory Rate 20 08/17/17 16:37 Blood Pressure 129/76 08/17/17 16:37 O2 Sat by Pulse Oximetry 97 08/17/17 16:37 Temperature 97.8 F 08/17/17 16:37 Pulse Rate 73 08/17/17 17:49 Respiratory Rate 18 08/17/17 17:49 Blood Pressure 135/88 08/17/17 17:49 O2 Sat by Pulse Oximetry 95 08/17/17 17:49 Oxygen Delivery Oxygen Delivery Room Air Chest Pain - Medical Records Medical records reviewed: Yes I reviewed the patient's medical records. - Lab Data Lab results reviewed: Yes I reviewed the patient's lab results. Result diagrams: 08/17/17 17:10 08/17/17 17:10 Lab Results 08/17/17 08/17/17 08/17/17 Range/Units 17:10 17:10 17:10 WBC 5.7 (4.3-11.1) K/mcL RBC 4.30 (4.19-5.50) M/mcL Hgb 13.5 (12.9-16.9) g/dL Hct 41.0 (37.5-50.1) % MCV 95.3 (83.0-100.0) fL MCH 31.4 (28.0-33.3) pg MCHC 32.9 (31.6-35.5) g/dL RDW 13.7 (11.5-14.5) % Plt Count 213 (140-400) K/mcL MPV 10.3 (9.4-12.4) fL Immature Gran % 0.3 (0-4) % Seg Neutrophils % 58.5 % Lymphocytes % 29.7 % Monocytes % 5.9 % Eosinophils % 4.9 % Basophils % 0.7 % Neutrophils # 3.4 (1.6-8.9) K/mcL Lymphocytes # 1.7 (0.6-4.6) K/mcL Monocytes # 0.3 (0.0-1.3) K/mcL Eosinophils # 0.3 (0.0-0.6) K/mcL Basophils # 0.0 (0.0-0.2) K/mcL PT 11.9 (9.4-12.1) Seconds INR 1.1 APTT 28.9 (26.0-36.0) Seconds Sodium (136-145) mEq/L Potassium (3.5-4.5) mEq/L Chloride (98-109) mEq/L Carbon Dioxide (19-29) mEq/L BUN (8-26) mg/dL Creatinine (0.72-1.25) mg/dL Est GFR ( Amer) (> 60) Est GFR (Non-Af Amer) (> 60) BUN/Creatinine Ratio (6-26) Glucose (70-99) mg/dL Calculated Osmolality (280-300) Calcium (8.6-10.8) mg/dL Total Bilirubin (0.2-1.2) mg/dL AST (5-34) Units/L ALT (0-55) Units/L Alkaline Phosphatase (38-126) Units/L Troponin I 0.00 (0-0.03) ng/mL Serum Total Protein (6.0-8.3) g/dL Albumin (3.5-5.0) g/dL Globulin (2.4-3.5) g/dL Albumin/Globulin Ratio (1.1-2.2) 08/17/17 Range/Units 17:10 WBC (4.3-11.1) K/mcL RBC (4.19-5.50) M/mcL Hgb (12.9-16.9) g/dL Hct (37.5-50.1) % MCV (83.0-100.0) fL MCH (28.0-33.3) pg MCHC (31.6-35.5) g/dL RDW (11.5-14.5) % Plt Count (140-400) K/mcL MPV (9.4-12.4) fL Immature Gran % (0-4) % Seg Neutrophils % % Lymphocytes % % Monocytes % % Eosinophils % % Basophils % % Neutrophils # (1.6-8.9) K/mcL Lymphocytes # (0.6-4.6) K/mcL Monocytes # (0.0-1.3) K/mcL Eosinophils # (0.0-0.6) K/mcL Basophils # (0.0-0.2) K/mcL PT (9.4-12.1) Seconds INR APTT (26.0-36.0) Seconds Sodium 134 L (136-145) mEq/L Potassium 4.5 (3.5-4.5) mEq/L Chloride 102 (98-109) mEq/L Carbon Dioxide 23 (19-29) mEq/L BUN 16 (8-26) mg/dL Creatinine 1.12 (0.72-1.25) mg/dL Est GFR ( Amer) > 60 (> 60) Est GFR (Non-Af Amer) > 60 (> 60) BUN/Creatinine Ratio 14 (6-26) Glucose 94 (70-99) mg/dL Calculated Osmolality 279 L (280-300) Calcium 9.0 (8.6-10.8) mg/dL Total Bilirubin 0.5 (0.2-1.2) mg/dL AST 23 (5-34) Units/L ALT 18 (0-55) Units/L Alkaline Phosphatase 96 (38-126) Units/L Troponin I (0-0.03) ng/mL Serum Total Protein 7.1 (6.0-8.3) g/dL Albumin 3.9 (3.5-5.0) g/dL Globulin 3.2 (2.4-3.5) g/dL Albumin/Globulin Ratio 1.2 (1.1-2.2) - Radiology Data Radiology results reviewed: Yes I reviewed the patient's radiology results. - EKG Data EKG attestation: Yes I reviewed and interpreted this EKG. EKG results narrative: Twelve-lead EKG: EKG interpreted without the benefit of cardiology shows sinus rhythm at 80 bpm with unifocal occasional PVCs. Some mild ST depression. Left bundle branch block, and a left atrial enlargement. Compared to an EKG dated 1816, no acute ischemic changes otherwise noted.
[2017-08-17] MEDS ORDERED: Nitroglycerin 0.4 MG TAB.SUBL SL PRN (17:11)
[2017-08-17 17:16] LABS: Basophils % 0.7 %; Eosinophils # 0.3 K/mcL (0.0-0.6); Eosinophils % 4.9 %; Hemoglobin 13.5 g/dL (12.9-16.9); Immature Granulocytes % 0.3 % (0-4); Lymphocytes # 1.7 K/mcL (0.6-4.6); Lymphocytes % 29.7 %; Mean Corpuscular HGB Conc 32.9 g/dL (31.6-35.5); Mean Corpuscular Hemoglobin 31.4 pg (28.0-33.3); Mean Corpuscular Volume 95.3 fL (83.0-100.0); Mean Platelet Volume 10.3 fL (9.4-12.4); Monocytes # 0.3 K/mcL (0.0-1.3); Monocytes % 5.9 %; Neutrophils # 3.4 K/mcL (1.6-8.9); Platelet Count 213 K/mcL (140-400); Red Cell Distribution Width 13.7 % (11.5-14.5); Segmented Neutrophils % 58.5 %
[2017-08-17 17:23] LABS: INR 1.1; Prothrombin Time 11.9 Seconds (9.4-12.1)
[2017-08-17 17:25] LABS: Activated Partial Thrombo Time 28.9 Seconds (26.0-36.0)
[2017-08-17 17:30] LABS: Alanine Aminotransferase 18 Units/L (0-55); Albumin 3.9 g/dL (3.5-5.0); Albumin/Globulin Ratio 1.2 (1.1-2.2); Alkaline Phosphatase 96 Units/L (38-126); Aspartate Amino Transferase 23 Units/L (5-34); BUN/Creatinine Ratio 14 (6-26); Bilirubin,Total 0.5 mg/dL (0.2-1.2); Blood Urea Nitrogen 16 mg/dL (8-26); Carbon Dioxide 23 mEq/L (19-29); Chloride 102 mEq/L (98-109); Globulin 3.2 g/dL (2.4-3.5); Glucose 94 mg/dL (70-99); Osmolality,Calculated 279 (280-300); Potassium 4.5 mEq/L (3.5-4.5); Sodium 134 mEq/L (136-145); Total Protein 7.1 g/dL (6.0-8.3); eGFR For African Americans > 60 (> 60); eGFR For Non-African Americans > 60 (> 60)
[2017-08-17 18:16] LABS: Bilirubin,Urine Negative (Negative); Blood,Urine Negative (Negative); Clarity,Urine Clear (Clear); Color,Urine Yellow (Yellow); Glucose,Urine (UA) Normal (Normal); Ketones,Urine Negative (Negative); Leukocyte Esterase,Urine Small (Negative); Nitrite,Urine Negative (Negative); Protein,Urine Negative (Neg-Trace); Specific Gravity,Urine 1.015 (1.010-1.025); Urobilinogen,Urine Normal (Normal)
[2017-08-17 18:18] LABS: Bacteria,Urine None Seen per hpf (None-Few); Hyaline Casts,Urine None Seen per lpf (None-Few); RBC,Urine 0-3 per hpf (0-3); Squamous Epithelial Cell,Urine Many per lpf (None-Few)
[2017-08-17] MEDS ORDERED: *HR* Morphine 2 MG/ML SYRINGE IVP PRN (18:24)
[2017-08-17] MEDS ORDERED: Acetaminophen 325 MG TABLET PO PRN (18:24)
[2017-08-17] MEDS ORDERED: Ondansetron 4 MG/2 ML VIAL IVP PRN (18:24)
[2017-08-17] MEDS ORDERED: Naloxone 0.4 MG/ML INJ IVP PRN (18:24)
[2017-08-17] MEDS ORDERED: *HR* OxyCODONE/APAP 7.5/325 TABLET PO PRN (18:28)
--- NOTE | 2017-08-17 18:36 | Internal Med History&Physical ---
Date of Encounter: 08/17/17 Time of Encounter: 18:34 Assessment and Plan (1) Chest pain Current visit: No Status: Resolved History of normal stress test: Showed reversible perfusion defect in the apical anterior wall Continue telemetry, repeat EKG, monitor troponins Cardiology consult to consider cardiac catheterization Aspirin Omeprazole for GI prophylaxis and Lovenox for DVT prophylaxis. The patient will be admitted for observation. Full code. Time spent on this admission 40 minutes (2) Claudication Current visit: Yes Status: Acute Ordered YESSENIA (3) Abnormal stress test Current visit: No Status: Acute Had an abnormal stress test back in July 2016 (4) Coronary artery disease Current visit: No Status: Chronic Continue aspirin, metoprolol Qualifiers: Coronary Disease-Associated Artery/Lesion type: [place] artery [place] vs. transplanted heart: [place] heart Associated angina: with unstable angina Qualified Code(s): I25.110 - Atherosclerotic heart disease of [place] coronary artery with unstable angina pectoris (5) Essential hypertension Current visit: No Status: Chronic Stable (6) Hyperlipidemia Current visit: No Status: Chronic Lipid panel in the morning Qualifiers: Hyperlipidemia type: mixed hyperlipidemia Qualified Code(s): E78.2 - Mixed hyperlipidemia Internal Medicine - H&P: HPI Chief complaint: Chest pain Admitted From: Emergency Dept History of present illness: Mr. Alarcon is a 72 year old male with a past medical history of CAD status post CABG and stents, hyperlipidemia, hypertension, COPD not oxygen dependent, CVA, tobacco use in the past. Can complain of chest pressure for the past 2 weeks on and off midsternal, 6 out of 10 in intensity lasting for about 20 minutes each time accompanied by diaphoresis, dizziness and sometimes left arm numbness. He says that it feels like 2004 when he had his stents placed. She has been taking aspirin every time. EKG was not in the chart but the ER note 3 non-specific changes with PVCs. Chest x-ray shows right basilar pleural parenchymal scaring. Troponin is negative, the patient had an abnormal stress test back in July of last year/2015. The cariology consult note by then mentions a possible cardiac catheterization and is not clear whether patient refused a cardiac catheterization or not, he is mentioning at the moment that he did not refuse to have one in he would be in agreement to have it if needed. Past Med Surg Social Fam HX - Past Medical History Medical history: COPD (Not oxygen dependent), coronary artery disease (Status post CABG and stents), CVA, GERD, hyperlipidemia, hypertension, myocardial infarction, other (Prior tobacco use, left bundle branch block, anxiety, depression) Psychiatric history: anxiety, depression - Past Surgical History Surgical History: angioplasty/stent (Stents in 2004 at [facility]), coronary bypass (CABG) (In 2000), LE stent(s) - Social History Smoking Status: Former smoker Packs per day: Quit back in February Smokeless Tobacco Status: No Alcohol use: none Drug use: none - Family History Brother Hx Family Cardiac Disorders: Yes (HI, Murmur) Hx Family Respiratory Disorders: No Hx Family Cancer: No Hx Family GI Disorders: No Hx Family Endocrine Disorder: No Hx Family Neuromuscular Disorders: No Hx Family Neurologic Disorders: No Hx Family HEENT Disorders: No Hx Family Autoimmune Disorders: No Mother Living Status: Hx Family Cancer: Yes - Additional Family History Additional family history: Brother of myocardial infarction at the age of 33. Mother with history of unknown cancer Internal Medicine - H&P: Meds Albuterol Sulfate [Proair Hfa] 2 puff IH Q6H PRN 07/22/16 [History] Aspirin 81 mg PO DAILY 07/22/16 [History] Atorvastatin [Lipitor] 40 mg PO HS 07/22/16 [History] Cetirizine HCl [Zyrtec] 10 mg PO DAILY 07/22/16 [History] Clopidogrel [Plavix] 75 mg PO DAILY 07/22/16 [History] Esomeprazole Magnesium [Nexium] 40 mg PO DAILY 07/22/16 [History] Fluticasone/Salmeterol [Advair 250-50 Diskus] 1 puff IH Q12H 07/22/16 [History] Ipratropium/Albuterol Neb [Duoneb] 3 ml IH BID 07/22/16 [History] OxyCODONE/APAP 7.5/325 [Percocet 7.5/325 MG] 1 each PO Q6H PRN 07/22/16 [History ] Tiotropium [Spiriva] 18 mcg IH DAILY 07/22/16 [History] Ondansetron HCl [Zofran] 4 - 8 mg PO TIDAC PRN 03/09/17 [History] Ranolazine [Ranexa] 1,000 mg PO BID #120 tab.er.12h 03/10/17 [Rx] Carvedilol [Carvedilol] 3.125 mg PO BID 08/17/17 [History] 3 Allergy/AdvReac Type Severity Reaction Status Date / Time venlafaxine [From Effexor] AdvReac Vomiting Verified 08/17/17 16:32 All Systems PM: A 10-system review of systems was performed and is negative for pertinent findings except as documented above in the HPI. Review of systems: Does not complain of any chest pain on the moment, has some shortness of breath that has been there for the past 2 weeks on and off. Denies any dysuria. He has been complaining of claudication in both lower extremities for the past few days. Other systems out of the 10 reviewed were negative - Constitutional Vitals: Temp Pulse Resp BP Pulse Ox 97.8 F 73 18 135/88 95 08/17/17 16:37 08/17/17 17:49 08/17/17 17:49 08/17/17 17:49 08/17/17 17:49 General appearance: Present: A&O X 3 - Head Head exam: Present: atraumatic, normocephalic - Eye Eye exam: Present: PERRL, conjuntiva pink, sclera anicteric Pupils: Present: PERRL - Neck Neck exam general surgery: Present: supple, trachea midline. Absent: lymphadenopathy - Respiratory Respiratory exam: Present: CTAB. Absent: accessory muscle use, rales, rhonchi, wheezes - Cardiovascular Cardiovascular exam: Present: RRR, +S1, +S2. Absent: diastolic murmur, gallop, rubs, systolic murmur - GI/Abdominal GI/Abdominal exam: Present: normal bowel sounds, soft, no peritoneal signs. Absent: distended, tenderness - Extremities Exam Extremities exam: Present: warm, radial pulses palpable and symmetrical. Absent : calf tenderness, cyanotic, pedal edema Additional comments: Diminished pulses in both lower extremities - Neurological Exam Neurological exam: Present: CN II-XII intact, oriented X3, no focal deficits. Absent: pronater drift, facial droop, speech deficit - Skin Skin exam: Present: dry, intact Internal Med - H&P Results - Labs CBC & Chem 7: 08/17/17 17:10 08/17/17 17:10 Labs: Urine 08/17/17 Range/Units 18:10 Urine Color Yellow (Yellow) Urine Clarity Clear (Clear) Urine pH 6.0 (5.0-8.0) pH Units Ur Specific [place] 1.015 (1.010-1.025) Urine Protein Negative (Neg-Trace) mg/dL Urine Glucose (UA) Normal (Normal) mg/dL
[2017-08-17] MEDS: 0.9 % Sodium Chloride 1,000 ML IVC SCH (21:07)
[2017-08-17] MEDS: Ranolazine 500 MG TAB.ER.12H PO SCH (21:07)
[2017-08-18 01:28] LABS: BUN/Creatinine Ratio 13 (6-26); Blood Urea Nitrogen 14 mg/dL (8-26); Calcium 8.7 mg/dL (8.6-10.8); Carbon Dioxide 26 mEq/L (19-29); Chloride 103 mEq/L (98-109); Chol/HDL Ratio 3.5 (0-4.9); Cholesterol 131 mg/dL (< 200); Glucose 86 mg/dL (70-99); HDL Cholesterol 37 mg/dL (40-59); LDL Cholesterol,Calculated 70 mg/dL (0-99); Osmolality,Calculated 284 (280-300); Sodium 137 mEq/L (136-145); Triglycerides 120 mg/dL (< 150); eGFR For African Americans > 60 (> 60); eGFR For Non-African Americans > 60 (> 60)
--- NOTE | 2017-08-18 09:46 | Cardiology Consult Note ---
<You Royal - Last Filed: 08/18/17 09:57> Date of Encounter: 08/18/17 Time of Encounter: 09:58 Assessment and Plan (1) Chest pain Current Visit: No Status: Acute Chest pain concerning for unstable angina. EKG shows LBBB with bigeminal PVC. Reviewed with Dr. Granado. Mild ST depression noted. Troponin negative. Abnormal stress test 02/2017- mild apical anterior wall ischemia. He is on tolerated medical therapy and continues to have chest pain. [facility] 04/28/14: LVEF 50%, 2 of 2 patent bypass grafts, MARTIN to LAD patent, distal LAD very small and diffusely diseased. TTE -EF 50%. No significant change from previous TTE. [facility] R/B/A discussed. He agrees to proceed. Continue asa, statin, and bb. Continue Ranexa. Unable to tolerate imdur due to low blood pressure. Qualifiers: Ischemic chest pain type: unstable angina pectoris Qualified Code(s): I20.0 - Unstable angina (2) Coronary artery disease Current Visit: No Status: Chronic Asa, statin, and bb. Qualifiers: Coronary Disease-Associated Artery/Lesion type: [place] artery [place] vs. transplanted heart: [place] heart Associated angina: with unstable angina Qualified Code(s): I25.110 - Atherosclerotic heart disease of [place] coronary artery with unstable angina pectoris (3) PVC (premature ventricular contraction) Current Visit: Yes Status: Acute frequent PVC and occasional bigeminal PVC seen. Appears to be asymptomatic. Unable to titrate bb due to low blood pressure. Further recommendation after [facility]. Discussion w patient/family: The assessment and plan as outlined above was discussed with the patient and/or family members who expressed understanding and agreement. All questions were answered. Thank you for involving us in the care of your patient. Please call with any questions. History of Present Illness Consult date: 08/18/17 Requesting physician: Shashi Porras Consult reason: Chest pain Chief complaint: Chest pain History of present illness: Mr. Alarcon is a 72 year old male with a history of CAD s/p CABG 2 V in 2001, previous PCI, LBBB, HTN, previous smoker who presents with the c/o increasing chest pain. C/o intermittent chest pain for the last four months at rest or with activity. Pain increasing in frequency. Reports pain is like Reports increased pain with stress. he is under increased stress over the past year due to his living situation. Pain is also what he experienced prior to previous PCI. Pain improves with NTG and morphine. Patient seen earlier this year with chest pain and underwent stress test. He was found to have mild apical and anterior wall ischemia. Disease correlated with known disease in the LAD. Trial of medical management was recommended and he was started on Ranexa. He reports improvement for short time but symptoms returned. Most recent cardiac testing: [facility] 12/06/13: minimal plaque bilaterally [facility] 04/28/14: LVEF 50%, 2 of 2 patent bypass grafts, MARTIN to LAD patent, distal LAD very small and diffusely diseased. TTE 04/15/15: LVEF 50%, moderate diastolic dysfunction, normal RV, mildly dilated LA, no significant valvular dysfunction Regadenos[facility] nuclear stress 04/15/15: LVEF 50%, small apical infarct, negative for ischemia Regadenoson nuclear stress 07/23/16: LVEF 60%, mild-moderate ischemia in the mid- apical anterior wall. Past Med Surg Social Fam HX - Past Medical History Attestation: Yes The following information was validated with the patient. Medical history: COPD, coronary artery disease, CVA, GERD, hyperlipidemia, hypertension, myocardial infarction, other Psychiatric history: anxiety, depression - Past Surgical History Surgical History: angioplasty/stent, coronary bypass (CABG), LE stent(s) - Social History Smoking Status: Former smoker Packs per day: Quit back in February Smokeless Tobacco Status: No Alcohol use: none Drug use: none - Family History Brother Hx Family Cardiac Disorders: Yes ([place], Murmur) Hx Family Respiratory Disorders: No Hx Family Cancer: No Hx Family GI Disorders: No Hx Family Endocrine Disorder: No Hx Family Neuromuscular Disorders: No Hx Family Neurologic Disorders: No Hx Family HEENT Disorders: No Hx Family Autoimmune Disorders: No Mother Living Status: Hx Family Cancer: Yes Medications and Allergies Albuterol Sulfate [Proair Hfa] 2 puff IH Q6H PRN 07/22/16 [History] Aspirin 81 mg PO DAILY 07/22/16 [History] Atorvastatin [Lipitor] 40 mg PO HS 07/22/16 [History] Cetirizine HCl [Zyrtec] 10 mg PO DAILY 07/22/16 [History] Clopidogrel [Plavix] 75 mg PO DAILY 07/22/16 [History] Esomeprazole Magnesium [Nexium] 40 mg PO DAILY 07/22/16 [History] Fluticasone/Salmeterol [Advair 250-50 Diskus] 1 puff IH Q12H 07/22/16 [History] Ipratropium/Albuterol Neb [Duoneb] 3 ml IH BID 07/22/16 [History] OxyCODONE/APAP 7.5/325 [Percocet 7.5/325 MG] 1 each PO Q6H PRN 07/22/16 [History ] Tiotropium [Spiriva] 18 mcg IH DAILY 07/22/16 [History] Ondansetron HCl [Zofran] 4 - 8 mg PO TIDAC PRN 03/09/17 [History] Ranolazine [Ranexa] 1,000 mg PO BID #120 tab.er.12h 03/10/17 [Rx] Carvedilol [Carvedilol] 3.125 mg PO BID 08/17/17 [History] 3 Allergy/AdvReac Type Severity Reaction Status Date / Time venlafaxine [From Effexor] AdvReac Vomiting Verified 08/17/17 16:32 All Systems Review: A 10-system review of systems was performed and is negative for pertinent findings except as documented above in the HPI. Physical Examination Vital Signs, Last 4 Hours Temp Pulse Resp BP 08/18/17 07:49 97.6 F 77 18 121/71 General: Conversant, No Apparent Distress HEENT: Atraumatic, Normocephaly, Mucus Membranes Moist Neck: No JVD, Normal carotid pulses Cardiac: Reg Rate and Rhythm, Normal S1 and S2, No Murmur Lungs: Normal Breath Sounds, No Wheeze, Rales, Rhonchi Neuro: Alert and responsive, No focal deficits noted Abdomen: Soft, Non-Tender Skin: No rashes noted on visualized skin Musculoskeletal: No Chest Wall Tenderness Extremities: No Clubbing, No Cyanosis, No Edema, Normal Pulses Results 08/17/17 17:10 08/18/17 00:38 Lab Results 08/17/17 08/18/17 08/18/17 20:17 00:38 00:38 Sodium 137 Potassium 4.0 Chloride 103 Carbon Dioxide 26 BUN 14 Creatinine 1.05 Glucose 86 Calcium 8.7 Troponin I 0.00 0.01 08/18/17 06:08 Sodium Potassium Chloride Carbon Dioxide BUN Creatinine Glucose Calcium Troponin I 0.02 Chest X-Ray 08/17/17 16:43 IMPRESSION: Mild right basilar pleuroparenchymal scarring. No definite acute disease. D/ / Geoffrey Guardado MD / Geoffrey Guardado MD Interpreting Provider: Geoffrey Guardado MD Echocardiogram Limited Views 08/17/17 18:32 Impressions: LVEF 50%. Normal LV chamber size, wall thickness and low normal function. Atypical septal motion consistent with paced rhythm. No changes compared to prior report from 03/2015. Left Ventricular Wall Motion: Rest Echo Findings All wall segments showed normal motion. Findings: Study Quality * Technically adequate exam. ECG Findings * Sinus rhythm with BBB. Left Ventricle * LVEF 50%. * Normal LV chamber size, wall thickness and function. * Atypical septal motion consistent with paced rhythm. Right Ventricle * Normal right ventricular structure and function. IVC * The IVC is not well evaluated. Pericardium * The pericardium appears normal. Aorta * Normally sized aortic root. - EKG Interpretation EKG results cardiology: personally reviewed (SR, LBBB, bigemnial PVC.) Consult Discharge Plan - Plan Referrals: Miguel Ball MD [Primary Care Provider] - <JoseAnnie aguirre - Last Filed: 08/18/17 12:12> Date of Encounter: 08/18/17 - Attending Attestation I have personally performed a face to face evaluation on this patient. I have reviewed and agree with the care plan. History and Exam by me shows: 72 YO male with h/o CABG and recent patent graft on [facility] but abnormal stress test with recurrent episode of chest pain. He states his chest pain is similiar to previous pain which led to CABG, despite similiar territory to apical LAD disease it seems reasonable to proceed with C due to continued and recurrent chest pain. D/W pt R/B/A and he agrees to proceed Assessment and Plan Discussion w patient/family: The assessment and plan as outlined above was discussed with the patient and/or family members who expressed understanding and agreement. All questions were answered. Thank you for involving us in the care of your patient. Please call with any questions. History of Present Illness History of present illness: Mr. Alarcon is a 72 year old male All Systems Review: A 10-system review of systems was performed and is negative for pertinent findings except as documented above in the HPI. Physical Examination Vital Signs, Last 4 Hours Temp Pulse Resp BP Pulse Ox 08/18/17 11:20 97.7 F 42 15 111/61 92 Results 08/17/17 17:10 08/18/17 00:38 Lab Results 08/17/17 08/18/17 08/18/17 20:17 00:38 00:38 Sodium 137 Potassium 4.0 Chloride 103 Carbon Dioxide 26 BUN 14 Creatinine 1.05 Glucose 86 Calcium 8.7 Troponin I 0.00 0.01 08/18/17 06:08 Sodium Potassium Chloride Carbon Dioxide BUN Creatinine Glucose Calcium Troponin I 0.02
[2017-08-18] MEDS: Ranolazine 500 MG TAB.ER.12H PO SCH ×2 (10:18→20:24)
[2017-08-18] MEDS: Aspirin 81 MG TAB.CHEW PO SCH (10:18)
--- NOTE | 2017-08-18 14:24 | Pre-Sedation Evaluation ---
Pre-sedation evaluation - Pre-sedation checklist Date of procedure: 08/18/17 Procedure: [facility] Recent Vitals: Last Vital Signs Temp 97.5 F L 08/18/17 13:33 Pulse 78 08/18/17 13:33 Resp 15 08/18/17 13:33 BP 107/56 08/18/17 13:33 Pulse Ox 92 08/18/17 11:20 H&P (including ROS) documented in medical record: Yes Previous reaction to sedatives/anesthetics: Unknown Dietary Status: NPO after Midnight Airway Assessment: Patient can open mouth completely, TMJ function normal, Micrognathia (under-bite, receding chin) absent, Neck with adequate range of motion Dentition: dentures removed Possible difficult airway: No ASA Classification *see protocol: CLASS II-Mild systemic disease Plan of Care: Pt appropriate candidate for procedure/moderate/conscious sedation , Risks/benefits of procedure/sedation discussed w/ patient/family
[2017-08-18] MEDS ORDERED: 0.9 % Sodium Chloride 1,000 ML ONE ×2 (14:27→14:40)
[2017-08-18] MEDS ORDERED: Heparin 1,000 UNITS/500 mL NS 500 ML ONE (14:27)
[2017-08-18] MEDS ORDERED: Nitroglycerin 1,000 MCG/10 ML VIAL IV ONE (14:27)
[2017-08-18] MEDS ORDERED: *HR* Heparin 10,000 UNIT/10 ML VIAL ONE (14:27)
[2017-08-18] MEDS ORDERED: *HR* FentaNYL (PF) 100 MCG/2 ML VIAL ONE (14:40)
[2017-08-18] MEDS ORDERED: *HR* Midazolam HCl 2 MG/2 ML VIAL ONE (14:40)
--- NOTE | 2017-08-18 16:00 | Invasive Diagnostic Lab Proc ---
Name: Dae Alarcon Date of Study: 08/18/2017 Date: 1945 Ht: 74.0in Medical Record#: [id number] Age: 72 Wt: 209.44lb Gender: Male BSA: 2.22 Order #: [id number] BMI: 26.88 Physicians Procedure Physician: Jeanette Hunter MD, FACC Referring MD: Referring MD: Staff Name Position Time In Alessia Bright RT (R) Scrub 02:39 PM Gabi Hall RN Monitor 02:39 PM Peggy Lynch RN Herbarium Worker 02:39 PM Brennen Cunningham RN Monitor 02:39 PM Indications Indication Unstable Angina Procedures Performed Procedure L HRT ART/GRFT ANGIO Pre-Procedure Checklist Informed consent is complete signed and on chart. H&P is on chart. ID band is on and ID verified with patient. Patient NPO for procedure The procedure was described for the patient and questions were answered. Blood Pressure: 121/71 ECG is on chart. Rhythm: Sinus Arrhythmia Plan of Care Patient will tolerate the procedure without complications. Adequate level of comfort will be maintained. Hemodynamics will remain stable Patient will recover from procedure without complications. Respiratory function will be maintained. Cardiac rhythm will remain stable. Patient temperature will be maintained. Patient and/or family have verbalized understanding of the procedure. Patient Education Chief Complaint/Reason for Test: Cardiac Cath Developmental Category: Geriatric (65+ years) Developmentally Appropriate for Age: Yes Learning Barriers: None Education Needs: Procedure Education Method: Verbal Information Taught: Cardiac Cath Educational Evaluation: Able to repeat information Intravenous Access Time IV Size Location DC'd Fluid/Drip Rate Units RN 02:52 PM 20g 1 1/" Patent On Arrival Lt Forearm Gabi Hall RN Allergies effexor Vital Signs Time BP (mmHg) HR (bpm) O2 Sat. RR (bpm) LOC 02:21 PM 121 / 71 77 18 % 18 5 = Fully awake and oriented or at pre-proc level 02:47 PM / % 5 = Fully awake and oriented or at pre-proc level 02:47 PM / % 4 = Oriented but drowsy 03:02 PM / % 4 = Oriented but drowsy 03:17 PM / % 4 = Oriented but drowsy 02:45 PM 135 / 67 74 % 14 02:50 PM 126 / 78 69 92 % 12 02:55 PM 132 / 67 77 94 % 12 03:00 PM 134 / 57 80 94 % 10 03:06 PM 135 / 67 81 94 % 13 03:10 PM 122 / 73 79 95 % 15 03:15 PM 122 / 80 75 96 % 14 03:20 PM 106 / 83 76 97 % 14 03:25 PM 133 / 76 67 97 % 18 03:30 PM 132 / 77 % Procedural Medications Time Medication Dose Units Method Given By 02:46 PM Oxygen 2 L/min nasal cannula Gabi Hall RN 02:47 PM Versed 2 mg Intravenous Gabi Hall RN 02:47 PM Fentanyl 50 mcg Intravenous Gabi Hall RN 03:01 PM Lidocaine 2% 14 ml Subcutaneous Jeanette Hunter MD, FACC 03:02 PM Benadryl 25 mg Intravenous Gabi Hall RN ASA Classification: CLASS II- Mild systemic disease (i.e. well-controlled diabetes, hypertension, asthma, cigarette smoking) Cortez Score Preprocedure Postprocedure Activity 2- Moves 4 extremities sustained head lift Activity 2- Moves 4 extremities sustained head lift Circulation 2- SBP +/= 20 points of pre-anesthetic level Circulation 2- SBP +/= 20 points of pre-anesthetic level Consciousness 2- Awake and alert oriented x 3 Consciousness 2- Awake and alert oriented x 3 O2 Saturation 2- Able to maintain O2 satruation of 92% on room air O2 Saturation 2- Able to maintain O2 satruation of 92% on room air Respiratory 2- Able to deep breathe and cough well Respiratory 2- Able to deep breathe and cough well Total Score 10 Total Score 10 Contrast Agent: Isovue Diagnostic Contrast: 98 ml Total Contrast: 98 ml Fluoro Dose: 272 mGy Procedure Log Time Note Enter By 02:38 PM Pt arrived to labor mediator 2 at 14:38 [email or web address] 02:38 PM Hattie paged/called 14:38. [email or web address] 02:38 PM Hattie responded and notified patient is ready 14:38 [email or web address] 02:39 PM Alessia Bright RT (R) Position: Scrub Time in: 14:39 [email or web address] 02:39 PM Gabi Hall RN Position: Monitor Time in: 14:39 [email or web address] 02:39 PM Peggy Lynch RN Position: Herbarium Worker Time in: 14:39 [email or web address] 02:39 PM Marisa, Brennen RN Position: Monitor Time in: 14:39 [email or web address] 02:39 PM Patient charges- Angio tray pack, Navilyst 3mm J, Pulse Oximetry and ACIST tubing and transducer [email or web address] 02:40 PM Case Delayed no, inpatient [email or web address] 02:42 PM Physician arrived 14:42 [email or web address] 02:42 PM Meet and greet completed [email or web address] 02:42 PM Sign in performed according to hospital policy. [email or web address] 02:42 PM Procedure start 14:42 [email or web address] 02:42 PM CathStat 02:44 PM Vitals capture started with the following parameters, Patient=Adult, Interval=5 min, Initial Woyvebat=987 mmHg, Deflation Rate=5 mmHg, Cuff placed on Right Arm 02:45 PM HR=74 bpm, HENN=363/67 mmhg, Resp=14 B/min, Comment=sr bbb with PVC's 02:45 PM ASA Class CLASS II- Mild systemic disease (i.e. well-controlled diabetes, hypertension, asthma, cigarette smoking) [email or web address] 02:46 PM Hair removed from procedure site in procedure lab using clippers. Bilateral groin prepped with Chloraprep by Alessia Bright (R), then patient was draped. Skin intact. [email or web address] 02:46 PM Time: 14:46 Oxygen on at 2 L/min per nasal cannula by Gabi Hall RN [email or web address] 02:47 PM Time: 14:47 Versed 2 mg Intravenous Given by Gabi Hall [email or web address] 02:47 PM Time: 14:47 Fentanyl 50 mcg Intravenous Given by Gabi Hall [email or web address] 02:47 PM Time: 14:47LOC: 5 = Fully awake and oriented or at pre-proc level [email or web address] 02:47 PM Time: 14:47 Patient comfortable and pain free: Yes [email or web address] 02:50 PM Recorded ECG: HR=76 Condition=Condition 1 02:50 PM HR=69 bpm, FSKN=692/78 mmhg, SpO2=92.0 %, Resp=12 B/min, Comment=sr bbb with PVC's 02:54 PM Clinical Presentation: Unstable angina [email or web address] 02:55 PM HR=77 bpm, ACTD=799/67 mmhg, SpO2=94.0 %, Resp=12 B/min, Comment=sr bbb with PVC's 02:56 PM Pressure channel 1 zeroed. 03:00 PM Time out performed according to hospital policy [email or web address] 03:00 PM HR=80 bpm, JGQK=156/57 mmhg, SpO2=94.0 %, Resp=10 B/min, Comment=sr bbb with PVC's 03:02 PM Time: 15:01 14 ml Lidocaine 2% to right groin Subcutaneous Given by Jeanette Hunter MD, [facility] [email or web address] 03:02 PM Time: 14:47 Patient comfortable and pain free: Yes [email or web address] 03:02 PM Time: 14:47LOC: 4 = Oriented but drowsy [email or web address] 03:02 PM Time: 15:02 Benadryl 25 mg Intravenous Given by Gabi Hall RN [email or web address] 03:03 PM Access obtained by percutaneous puncture. 5Fr 10cm Terumo Ward sheath placed in right Femoral artery. [id number] [email or web address] 03:03 PM 5Fr FL 4 catheter inserted over the wire DN [email or web address] 03:05 PM LCA angiography performed in multiple views. [email or web address] 03:05 PM Recorded Pressure: Ao, HR=78, Condition=Condition 1 (Aorta) Ao 112/60/83 03:06 PM HR=81 bpm, STFE=078/67 mmhg, SpO2=94.0 %, Resp=13 B/min, Comment=sr bbb with PVC's 03:07 PM Catheter removed [email or web address] 03:07 PM 5Fr FR 4 catheter inserted over the wire DN [email or web address] 03:08 PM RCA angiography performed in multiple views. [email or web address] 03:09 PM cath repositioned to SVG [email or web address] 03:09 PM Recorded Pressure: Ao, HR=81, Condition=Condition 1 (Aorta) Ao 110/76/92 03:09 PM SVG to the RPDA angio performed in multiple views. [email or web address] 03:10 PM HR=79 bpm, HSZW=096/73 mmhg, SpO2=95.0 %, Resp=15 B/min, Comment=sr bbb with PVC's 03:11 PM Catheter removed [email or web address] 03:11 PM 5Fr IM catheter inserted over the wire [id number] [email or web address] 03:12 PM Left TADEO to the LAD angio performed in multiple views. [email or web address] 03:13 PM Catheter removed [email or web address] 03:14 PM 5Fr Pigtail catheter inserted over the wire C [email or web address] 03:14 PM Pressure channel 1 zeroed. 03:14 PM Recorded Pressure: LV, HR=50, Condition=Condition 1 (Left Ventricle) LV 95/10/10 03:14 PM Catheter selectively placed in left ventricle [email or web address] 03:14 PM Bolus angiogram of left Ventricle complete: 8 ml/sec for a total of 24 mls [email or web address] 03:15 PM Recorded Pressure: LV, Ao, HR=78, Condition=Condition 1 (Left Ventricle) LV 95/28/21, (Aorta) Ao 95/34/76 03:15 PM HR=75 bpm, LIYJ=328/80 mmhg, SpO2=96.0 %, Resp=14 B/min, Comment=sr bbb with PVC's 03:15 PM Coronary Dominance: right [email or web address] 03:17 PM Time: 15:02LOC: 4 = Oriented but drowsy [email or web address] 03:17 PM Time: 15:02 Patient comfortable and pain free: Yes [email or web address] 03:17 PM Catheter removed [email or web address] 03:17 PM Wire removed [email or web address] 03:18 PM Bolus angiogram of right Femoral complete: 4 ml/sec for a total of 7 mls [email or web address] 03:19 PM Procedure completed at 15:19 [email or web address] 03:20 PM HR=76 bpm, PNND=583/83 mmhg, SpO2=97.0 %, Resp=14 B/min, Comment=sr bbb with PVC's 03:21 PM Sign out completed: Radiation Dose 272 mGy Fluoro Time: 5.0 Isovue 370 - 200ml contrast 98 ml given by Jeanette Hunter MD, [facility]. Complications: NoneCardiac Rehab Consult needed: NoConfirmed administered medications: Yes [email or web address] 03:22 PM Isovue 370 - 200ml,1 Bottle(s) used. [email or web address] 03:22 PM Arterial sheath pulled, Mynx closure device used and was Successful [id number] S/N. [email or web address] 03:22 PM Post ECG Sinus Arrhythmia [email or web address] 03:22 PM Post Blood Pressure 106/83 [email or web address] 03:22 PM Information taught Cardiac Cath and Mynx [email or web address] 03:22 PM Education needs Procedure, Plan of Care, and Responsibilities of Patient in Care [email or web address] 03:23 PM Learning barriers :None [email or web address] 03:23 PM Education Methods Verbal [email or web address] 03:23 PM Education evaluation Able to repeat information [email or web address] 03:23 PM Site status No bleeding/hematoma - Rt Groin as reported by Alessia Bright RT (R) at 15:23 [email or web address] 03:23 PM Opsite applied [email or web address] 03:23 PM Plavix, Effient or Brilinta given No [email or web address] 03:23 PM Delay to floor No [email or web address] 03:23 PM Family placed in consult room. [email or web address] 03:23 PM Complications: None [email or web address] 03:23 PM Fluoro Time: 5 [email or web address] 03:23 PM Isovue 370 - 200ml contrast 98 ml given by [facility] MD, [facility] [email or web address] 03:23 PM Radiation Dose 272 mGy [email or web address] 03:25 PM HR=67 bpm, DCCG=639/76 mmhg, SpO2=97.0 %, Resp=18 B/min, Comment=sr bbb with PVC's 03:30 PM HJMV=936/77 mmhg 03:33 PM Time: 15:17 Patient comfortable and pain free: Yes [email or web address] 03:33 PM Time: 15:17LOC: 4 = Oriented but drowsy [email or web address] 03:36 PM 15:36 Post Pulses Bilateral DP & PT 2+ [email or web address] 03:38 PM Report given to Radha LAWSON Pt taken to Room #33. 15:37 [email or web address] 03:38 PM Patient out of room: 15:38 [email or web address] 03:39 PM Lesion found in LMCA. Pre Stenosis: 20 Pre HERMES Flow: [email or web address] 03:39 PM Lesion found in Proximal RCA. Pre Stenosis: 30 Pre HERMES Flow: [email or web address] 03:39 PM Lesion found in Mid RCA. Pre Stenosis: 50 Pre HERMES Flow: [email or web address] 03:39 PM Lesion found in Distal RCA. Pre Stenosis: 30 Pre HERMES Flow: [email or web address] 03:39 PM Lesion found in Right PDA. Pre Stenosis: 100 Pre HERMES Flow: [email or web address] 03:40 PM Lesion found in Proximal LAD. Pre Stenosis: 100 Pre HERMES Flow: [email or web address] 03:40 PM Lesion found in Proximal Circumflex. Pre Stenosis: 30 Pre HERMES Flow: [email or web address] 03:40 PM Lesion found in Ramus. Pre Stenosis: 30 Pre HERMES Flow: [email or web address] 03:40 PM Left Main Coronary Artery with 20% stenosis [email or web address] 03:41 PM Circumflex, Obtuse Marginal, Left Posterior Descending, and Left Posterolateral Coronary Arteries with 30 % stenosis. If graft is supplying this area, 0 % stenosis [email or web address] 03:42 PM Proximal Left Anterior Descending Coronary Artery with 100% stenosis. If graft is supplying this territory, 0 % stenosis. [email or web address] 03:42 PM Right Coronary, Right Posterior Descending Arteries with Right Posterolateral and Acute Marginal branches with 100 % stenosis. If graft is supplying this area, 0 % stenosis [email or web address] 03:42 PM Ramus with 30% stenosis. If graft is supplying this area, 0 % stenosis [email or web address] Complications Complication None None Hemodynamics Pressures Site Systolic/A Wave Diastolic/V Wave Mean AO 112 60 83 AO 110 76 92 LV 95 10 10 LV 95 28 21 AO 95 34 76 Post Procedure Information Blood Pressure: 106/83 mmHg Rhythm: Sinus Arrhythmia Post procedural instructions were given Closure Device Time Device Success/Fail 08/18/2017 3:23:00 PM MynxGrip Successful Site Checks Time Location Status Staff Sheath In? Note 03:23 PM Rt Groin No bleeding/hematoma Alessia Bright RT (R) Pulses Time Site Pre-Procedure Post-Procedure Note Bilateral DP & PT 2+ Bilateral radial 2+ 3:36:00 PM Bilateral DP & PT 2+ Updated by Peggy Lynch RN on 08/18/2017 3:53:20 PM electronically signed on 08/18/2017 3:55:42 PM with status of Final
--- NOTE | 2017-08-18 16:12 | Event Note ---
Date of Encounter: 08/18/17 Time of Encounter: 16:09 - Cardiology Event Note LHC completed. No intervention needed. Stable CAD, 2/2 bypass grafts patent. Continue medical management. Will add low dose imdur to see if he tolerates. Not started in past due to low blood pressure. Out-patient cardiology f/u will be coordinated by [facility].
--- NOTE | 2017-08-18 16:33 | Electrocardiograph Report ---
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
--- NOTE | 2017-08-18 17:20 | Internal Med Progress Note ---
Date of Encounter: 08/18/17 Time of Encounter: 11:45 - Assessment and plan (1) Chest pain Current Visit: No Status: Acute Assessment and plan: Atypical chest pain - abnormal stress test in February 2017 - he is currently asymptomatic [facility] today - no intervention needed, stable CAD, bypass grafts patent Continue aspirin, Plavix, statin, Coreg, Imdur Echocardiogram today - LVEF 50%, normal LV chamber size Chest x-ray - mild right basilar scarring, no acute disease EKG - LBBB with bigeminal PVC, mild ST depression Troponin - 0.02 Cardiology consult - recommendations reviewed, appreciate input Cardiac telemetry, pulse ox, monitor closely, anticipate discharge in a.m. Qualifiers: Ischemic chest pain type: unstable angina pectoris Qualified Code(s): I20.0 - Unstable angina (2) Coronary artery disease Current Visit: No Status: Chronic Assessment and plan: Coronary artery disease status post CABG and stents - stable Continue aspirin, Plavix, statin, Coreg Qualifiers: Coronary Disease-Associated Artery/Lesion type: [place] artery [place] vs. transplanted heart: [place] heart Associated angina: with unstable angina Qualified Code(s): I25.110 - Atherosclerotic heart disease of [place] coronary artery with unstable angina pectoris (3) COPD (chronic obstructive pulmonary disease) Current Visit: Yes Status: Chronic Assessment and plan: Mild acute COPD exacerbation DuoNeb breathing treatment, Symbicort, Prednisone Supplemental O2 as needed Qualifiers: COPD type: unspecified COPD Qualified Code(s): J44.9 - Chronic obstructive pulmonary disease, unspecified (4) Essential hypertension Current Visit: No Status: Chronic Assessment and plan: Essential hypertension, controlled, monitor Continue home dose of Coreg Imdur added today (5) Hyperlipidemia Current Visit: No Status: Chronic Assessment and plan: Continue Lipitor Qualifiers: Hyperlipidemia type: mixed hyperlipidemia Qualified Code(s): E78.2 - Mixed hyperlipidemia (6) DVT prophylaxis Current Visit: Yes Status: Acute Assessment and plan: Continue Lovenox subcutaneous - Time Spent With Patient 25 - 35 minutes - Subjective Interval history: Patient examined this morning. Awake and alert. Not in any distress. Denies chest pain at present. Hemodynamically stable. No fever. Complains of mild shortness of breath which is worse with exertion. Patient thinks his shortness of breath might be related to a bug spray that he frequently uses in his house. Patient underwent [facility] today. He has stable coronary artery disease and his bypass grafts are patent. Patient will be continued on aspirin and Plavix and statin. After his LHC he had one episode of bradycardia seen on telemetry. EKG was done and shows no acute changes. Patient will be observed overnight and we anticipate to discharge home in the morning. No other acute events or complaints. - Constitutional Vitals: Temp Pulse Resp BP Pulse Ox 97.5 F L 78 15 107/56 92 08/18/17 13:33 08/18/17 13:33 08/18/17 13:33 08/18/17 13:33 08/18/17 11:20 General appearance: Present: cooperative, A&O X 3, pleasant, no acute distress, answers questions appropriately - Head Head exam: Present: atraumatic - Eye Eye exam: Present: EOMI - ENT ENT exam: Present: mucous membranes moist - Respiratory Respiratory exam: Present: wheezes (Mild bilateral). Absent: accessory muscle use, chest wall tenderness, rales, rhonchi, tachypnea - Cardiovascular Cardiovascular exam: Present: RRR, +S1, +S2 - GI/Abdominal GI/Abdominal exam: Present: soft. Absent: distended, firm, guarding, tenderness - Extremities Exam Extremities exam: Present: radial pulses palpable and symmetrical. Absent: calf tenderness, cyanotic, pedal edema - Neurological Exam Neurological exam: Present: alert, oriented X3, no focal deficits. Absent: facial droop, speech deficit Internal Medicine: Result - Labs CBC & Chem 7: 08/17/17 17:10 08/18/17 00:38 Labs: BMP 08/18/17 00:38 Sodium 137 Potassium 4.0 Chloride 103 Carbon Dioxide 26 BUN 14 Creatinine 1.05 Glucose 86 Calcium 8.7 Cardiac Enzymes 08/17/17 08/18/17 08/18/17 Range/Units 20:17 00:38 06:08 Troponin I 0.00 0.01 0.02 (0-0.03) ng/mL Urine 08/17/17 Range/Units 18:10 Urine Color Yellow (Yellow) Urine Clarity Clear (Clear) Urine pH 6.0 (5.0-8.0) pH Units Ur Specific [place] 1.015 (1.010-1.025) Urine Protein Negative (Neg-Trace) mg/dL Urine Glucose (UA) Normal (Normal) mg/dL - ABG Interpretation ABG results: PT/INR, D-dimer PT 11.9 Seconds (9.4-12.1) 08/17/17 17:10 - Impressions Impressions Echocardiogram Limited Views 08/17/17 18:32 Impressions: LVEF 50%. Normal LV chamber size, wall thickness and low normal function. Atypical septal motion consistent with paced rhythm. No changes compared to prior report from 03/2015. Left Ventricular Wall Motion: Rest Echo Findings All wall segments showed normal motion. Findings: Study Quality * Technically adequate exam. ECG Findings * Sinus rhythm with BBB. Left Ventricle * LVEF 50%. * Normal LV chamber size, wall thickness and function. * Atypical septal motion consistent with paced rhythm. Right Ventricle * Normal right ventricular structure and function. IVC * The IVC is not well evaluated. Pericardium * The pericardium appears normal. Aorta * Normally sized aortic root. Consult Discharge Plan - Plan Referrals: Miguel Ball MD [Primary Care Provider] -
[2017-08-18] MEDS: Isosorbide MONOnitrate (24 HR) 30 MG TAB.ER.24H PO SCH (17:28)
[2017-08-18] MEDS: *HR* Enoxaparin 40 MG/0.4 ML SYRINGE SQ SCH (17:28)
[2017-08-18] MEDS: 0.9 % Sodium Chloride 1,000 ML IVC SCH (20:23)
[2017-08-18] MEDS: Budesonide/Formoterol 160/4.5 MDI IH SCH (20:50)
[2017-08-18] MEDS: Ipratropium/Albuterol Neb 3 ML IH SCH (20:50)
[2017-08-19] MEDS: Ipratropium/Albuterol Neb 3 ML IH SCH ×4 (00:12→11:16)
[2017-08-19] MEDS: *HR* Enoxaparin 40 MG/0.4 ML SYRINGE SQ SCH (06:04)
[2017-08-19] MEDS: Budesonide/Formoterol 160/4.5 MDI IH SCH (07:49)
[2017-08-19] MEDS: Isosorbide MONOnitrate (24 HR) 30 MG TAB.ER.24H PO SCH (08:59)
[2017-08-19] MEDS ORDERED: Loratadine 10 MG TABLET PO SCH (09:00)
[2017-08-19] MEDS: 0.9 % Sodium Chloride 1,000 ML IVC SCH (09:00)
[2017-08-19] MEDS: Ranolazine 500 MG TAB.ER.12H PO SCH (09:01)
[2017-08-19] MEDS: Aspirin 81 MG TAB.CHEW PO SCH (09:01)
[2017-08-19 10:48] VITALS: BP 90/56
--- NOTE | 2017-08-19 13:16 | Discharge Summary ---
Date of Encounter: 08/19/17 Time of Encounter: 07:20 - Discharge Diagnosis (1) Chest pain Priority: Primary Status: Acute Comments: Atypical chest pain - abnormal stress test in February 2017 - he is currently asymptomatic [facility] today - no intervention needed, stable CAD, bypass grafts patent Continue Aspirin, Plavix, statin, Coreg, Imdur Watch for hypotension Echocardiogram today - LVEF 50%, normal LV chamber size Chest x-ray - mild right basilar scarring, no acute disease EKG - LBBB with bigeminal PVC, mild ST depression Troponin - 0.02 Cardiology consult - recommendations reviewed, appreciate input Discharge home today Qualifiers: Ischemic chest pain type: unstable angina pectoris Qualified Code(s): I20.0 - Unstable angina (2) Coronary artery disease Priority: Primary Status: Chronic Comments: Coronary artery disease status post CABG and stents - stable Continue aspirin, Plavix, statin, Coreg Qualifiers: Coronary Disease-Associated Artery/Lesion type: [place] artery [place] vs. transplanted heart: [place] heart Associated angina: with unstable angina Qualified Code(s): I25.110 - Atherosclerotic heart disease of [place] coronary artery with unstable angina pectoris (3) COPD (chronic obstructive pulmonary disease) Priority: Primary Status: Chronic Comments: Mild acute COPD exacerbation - symptoms have now improved DuoNeb breathing treatment, Symbicort, Prednisone Qualifiers: COPD type: unspecified COPD Qualified Code(s): J44.9 - Chronic obstructive pulmonary disease, unspecified (4) Essential hypertension Priority: Secondary Status: Chronic Comments: Essential hypertension, controlled, monitor Continue home dose of Coreg Imdur added - watch for hypotension (5) Hyperlipidemia Priority: Secondary Status: Chronic Comments: Continue Lipitor Qualifiers: Hyperlipidemia type: mixed hyperlipidemia Qualified Code(s): E78.2 - Mixed hyperlipidemia - Discharge Medications Prescriptions: Ipratropium/Albuterol Neb [Duoneb] 3 ml IH Q6HR PRN #30 inhsol PRN Reason: Shortness Of Breath/Wheezing Aspirin 81 mg PO DAILY #30 tab.chew Isosorbide MONOnitrate (24 HR) [Imdur] 30 mg PO DAILY #30 tab.er.24h predniSONE [PredniSONE] 20 mg PO DAILY #7 tablet Home Medications: Albuterol Sulfate [Proair Hfa] 2 puff IH Q6H PRN 07/22/16 [History] Atorvastatin [Lipitor] 40 mg PO HS 07/22/16 [History] Cetirizine HCl [Zyrtec] 10 mg PO DAILY 07/22/16 [History] Clopidogrel [Plavix] 75 mg PO DAILY 07/22/16 [History] Esomeprazole Magnesium [Nexium] 40 mg PO DAILY 07/22/16 [History] Fluticasone/Salmeterol [Advair 250-50 Diskus] 1 puff IH Q12H 07/22/16 [History] OxyCODONE/APAP 7.5/325 [Percocet 7.5/325 MG] 1 each PO Q6H PRN 07/22/16 [History ] Tiotropium [Spiriva] 18 mcg IH DAILY 07/22/16 [History] Ondansetron HCl [Zofran] 4 - 8 mg PO TIDAC PRN 03/09/17 [History] Ranolazine [Ranexa] 1,000 mg PO BID #120 tab.er.12h 03/10/17 [Rx] Carvedilol 3.125 mg PO BID 08/17/17 [History] Aspirin 81 mg PO DAILY tab.chew 08/19/17 [Rx] Aspirin 81 mg PO DAILY #30 tab.chew 08/19/17 [Rx] Ipratropium/Albuterol Neb [Duoneb] 3 ml IH Q6HR PRN #30 inhsol 08/19/17 [Rx] Isosorbide MONOnitrate (24 HR) [Imdur] 30 mg PO DAILY #30 tab.er.24h 08/19/17 [ Rx] predniSONE [PredniSONE] 20 mg PO DAILY #7 tablet 08/19/17 [Rx] Allergies/Adverse Reactions: 3 Allergy/AdvReac Type Severity Reaction Status Date / Time venlafaxine [From Effexor] AdvReac Vomiting Verified 08/17/17 16:32 Procedures/tests Complete & Pending: Procedures Performed prior 72 hours Category Date Time Status CL Cardiac Catheterization [CL] Routine [place] 08/18/17 10:28 Completed YESSENIA [EV ankle brachial index] Routine Y 08/17/17 18:32 Completed EV limited echocardiogram Routine Y 08/17/17 18:32 Completed Date of admission: 08/17/17 18:01 Primary care physician: Miguel Ball MD Consults: 08/17/17 18:32 Consult to Cardiology [CONS] Routine Comment: Consulting Provider: Umair Welch Reason for Consult: angina Call Completed: Yes Anticipated date of discharge: 08/19/17 - Patient Status Disposition: Home, Self-Care Condition: Fair Functional capacity at discharge: independent ambulation Overall status at discharge: patient is progressing back to baseline - Discharge Instructions Instructions: Prednisone (By mouth), Aspirin (By mouth), Isosorbide Mononitrate (By mouth), Ipratropium/Albuterol (By breathing), Left Heart Catheterization (DC), How to Take a Blood Pressure (DC) Follow Up With: [facility] [Provider Group] (The office will call you with a follow up appt.) Miguel Ball MD [Primary Care Provider] - (Your appt has been web requested. If they do not call you please call them to make a follow up appt.) Additional Instructions: RISK FACTORS: STOP SMOKING: If you smoke, STOP. Smoking or tobacco use significantly increases your risk of heart disease because nicotine causes the arteries to narrow or constrict. It also causes fats to stick to the artery. Your chances of having a heart attack are greatly increased if you continue to smoke. For more information, call the education line for smoking cessation 6-429-FBSMFXP EAT A LOW FAT/CHOLESTEROL/SODIUM DIET: This diet may help reduce your chances of having a heart attack. LIFTING: Avoid lifting anything more than 10 pounds for 5-7 days Prior to straining, laughing, sneezing and/or coughing, apply manual pressure directly over insertion site. ACTIVITY: You may walk or climb stairs as tolerated You can resume sexual activity as tolerated In general, you are encouraged to engage in a minimum of 30 minutes or more of moderate intensity physical activity, such as brisk walking, daily or at least 3 -4 times weekly BATHING Do not submerge the site into water (bath tub, hot tub, swimming pool) for 1 week. This can be a source for infection into the blood stream. You may shower after 24 hours SITE CARE: After 24 hours, you may remove the dressing and leave the site open to air. Keep the site clean and dry. Clean gently and pat dry. You can expect bruising and tenderness that gradually resolve within a week or two. Return to work as instructed per your physician Resume driving as instructed per physician Keep all scheduled follow up appointments Resume medications as instructed IMPORTANT: If prescribed a Platelet Aggregation Inhibitor such as, Plavix, Brilinta or Effient: Duration of therapy is minimum one year These medications are often used in combination with Aspirin in prevention of future heart attacks Never discontinue unless consult with your [place] STROKE (CVA) Risk factors for a stroke are: Age, cigarette smoking, diabetes, excessive alcohol consumption, family history, high blood pressure, overweight, physical inactivity, prior stroke, heart attack, diagnosis of carotid artery stenosis or other artery disease. Warning signs: Sudden numbness or weakness of the face, arm or leg; especially on one side of the body, sudden confusion, trouble speaking or understanding, sudden trouble seeing in one or both eyes, sudden trouble walking, dizziness, loss of balance or coordination, sudden severe headache with no cause. Call 911 or go to the Emergency Room. CONGESTIVE HEART FAILURE: If you have been diagnosed with Congestive Heart Failure (CHF) and your symptoms return, make an appointment with your physician Weigh yourself daily. Notify your physician if you have a weight gain of two or more pounds in one day or five or more pounds in one week. If you experience any difficulty breathing, please call 911 BLEEDING: Although the risk of bleeding is minimal, it can happen. If you have any bleeding from the site, apply firm pressure above the puncture site for 10-15 minutes. If the bleeding does not stop, continue manual pressure and call 911 Contact your physician if: You develop a fever greater than 101 degrees Fahrenheit Your site becomes reddened or has any drainage You have an increase in pain or burning at the site or if a large knot forms at the site. If you experience chest pain, shortness of breath, dizziness, or extreme tiredness, stop the activity and rest. Please notify your physicians office if you experience any of these symptoms and they are not relieved by rest please call 911! - Diet and Activity Activity: increase activity as tolerated, resume usual activities as tolerated Diet: low fat, low cholesterol, low salt diet Hospital course: Mr. Alarcon is a 72 year old male with past medical history of COPD, coronary artery disease status post CABG, CVA, GERD, hyperlipidemia, upper tension, anxiety and depression. Patient presented to the ED with complaints of chest pain. He states that it has been going on intermittently for about 2 weeks. Midsternal chest pain and rates it 6 out of 10. Accompanied by diaphoresis and dizziness and sometimes left arm numbness. EKG did not show any acute ST-T changes. Troponin is negative 4. Patient was admitted for chest pain rule out ACS. He has had a abnormal stress test in the past which showed reversible perfusion defect in the apical anterior wall. Cardiology was consulted. LHC was done. No intervention was necessary he has stable coronary artery disease and both his bypass grafts are patent. Advised to continue medical management. Echocardiogram shows normal LV EF of 50% with normal LV size. Patient has been advised to continue aspirin and Plavix and statin along with Coreg. Patient also had mild acute COPD exacerbation and was continued on DuoNeb breathing treatment and Symbicort and prednisone. Patient does not have any further chest pain. States he feels better and wants to go home. He has no other acute events or complications during his stay. Patient has been explained about his condition and plan care in detail. He understood and agreed. No unanswered questions. Patient is being discharged in stable condition. - Time Spent with Patient Total time spent providing and/or coordinating discharge services: Less than 30 minutes - Constitutional Vitals: Temp Pulse Resp BP Pulse Ox 98.7 F 80 16 90/56 91 08/19/17 10:45 08/19/17 10:45 08/19/17 11:17 08/19/17 10:45 08/19/17 11:17 General appearance: Present: cooperative, A&O X 3, pleasant, no acute distress, answers questions appropriately - Head Head exam: Present: atraumatic - Eye Eye exam: Present: EOMI - ENT ENT exam: Present: mucous membranes moist - Respiratory Respiratory exam: Present: CTAB. Absent: rales, rhonchi, wheezes, tachypnea - Cardiovascular Cardiovascular exam: Present: RRR, +S1, +S2 - GI/Abdominal GI/Abdominal exam: Present: soft. Absent: distended, firm, guarding, tenderness - Extremities Exam Extremities exam: Present: radial pulses palpable and symmetrical. Absent: calf tenderness, cyanotic, pedal edema - Neurological Exam Neurological exam: Present: alert, oriented X3, no focal deficits. Absent: facial droop, speech deficit
== END 2017-08-19 14:25 | disposition home or self-care (01) ==
LOC: EMEROO 16:27 → 3BNU 16:27
PROVIDERS: ADMIT Registered Nurse; ATTEND Registered Nurse

== ENCOUNTER 2017-08-20 16:08 | Observation (INO) ==
[2017-08-20] MEDS ORDERED: Aspirin 325 MG TABLET PO ONE ×2 (16:47→19:09)
--- NOTE | 2017-08-20 16:51 | Emergency Department Note ---
Disposition Clinical Impression: Right sided weakness Chest pain Qualifiers: Chest pain type: unspecified Qualified Code(s): R07.9 - Chest pain, unspecified Disposition: Admitted As Inpatient Condition: Good Neuro HPI - General Chief Complaint: ED General Medical Stated Complaint: SUELLEN RLE N/T Time Seen by Provider: 08/20/17 16:30 Source: patient Mode of arrival: private vehicle Limitations: no limitations Nursing Notes Reviewed: Yes Vital Signs Reviewed: Yes - History of Present Illness HPI Narrative: 72-year-old male history of CAD, CABG in 2001, hypertension, hyperlipidemia who presents to the ER due to right-sided weakness and numbness. Patient states he had a left heart catheterization 2 days ago without stent placement. He states that they tried to keep him because of low blood pressure but he requested to go home. He states he was checking numbers at home today and called the nurses on who told him to come here if he was concerned. He is unable to tell me exactly what his readings were at home. He reports that he woke up this morning feeling weakness in his right leg and right arm as well as numbness. He reports mini stroke in the past but is unable to tell me what his symptoms were. He denies any recent head injury. He does report that he started having pressure in his chest today. No other complaints. Symptom Onset Unknown: No Location: right arm, right leg History of same: No Severity: mild Quality: weakness, numbness Symptoms Improving: No Improves with: none Worsens with: none Context: sudden onset On Anticoagulants: No Associated symptoms: Reports: chest pain. Denies: fever/chills, headaches, nausea/vomiting Treatments Prior to Arrival: none - Related Data Home Medications: Home Medications Medication Instructions Recorded Confirmed Albuterol Sulfate [Proair Hfa] 2 puff IH Q6H PRN 07/22/16 08/17/17 Atorvastatin [Lipitor] 40 mg PO HS 07/22/16 08/17/17 Cetirizine HCl [Zyrtec] 10 mg PO DAILY 07/22/16 08/17/17 Clopidogrel [Plavix] 75 mg PO DAILY 07/22/16 08/17/17 Esomeprazole Magnesium [Nexium] 40 mg PO DAILY 07/22/16 08/17/17 Fluticasone/Salmeterol [Advair 1 puff IH Q12H 07/22/16 08/17/17 250-50 Diskus] OxyCODONE/APAP 7.5/325 [Percocet 1 each PO Q6H PRN 07/22/16 08/17/17 7.5/325 MG] Tiotropium [Spiriva] 18 mcg IH DAILY 07/22/16 08/17/17 Ondansetron HCl [Zofran] 4 - 8 mg PO TIDAC PRN 03/09/17 08/17/17 Carvedilol 3.125 mg PO BID 08/17/17 08/17/17 Previous Rx's Medication Instructions Recorded Ranolazine [Ranexa] 1,000 mg PO BID #120 tab.er.12h 03/10/17 Aspirin 81 mg PO DAILY tab.chew 08/19/17 Aspirin 81 mg PO DAILY #30 tab.chew 08/19/17 Ipratropium/Albuterol Neb [Duoneb] 3 ml IH Q6HR PRN #30 inhsol 08/19/17 Isosorbide MONOnitrate (24 HR) 30 mg PO DAILY #30 tab.er.24h 08/19/17 [Imdur] predniSONE [PredniSONE] 20 mg PO DAILY #7 tablet 08/19/17 Allergies/Adverse Reactions: Allergies Allergy/AdvReac Type Severity Reaction Status Date / Time venlafaxine [From Effexor] AdvReac Vomiting Verified 08/17/17 16:32 All systems ED: reviewed and negative except as stated. Constitutional: Denies: fever Cardiovascular: Reports: chest pain Respiratory: Denies: cough, dyspnea Gastrointestinal: Denies: abdominal pain, nausea, vomiting Neurological: Reports: weakness, paresthesias. Denies: headache Past Medical History - Past Medical History Attestation: Yes The following information was validated with the patient. Source: patient Medical history: Reports: COPD, coronary artery disease, CVA, GERD, hyperlipidemia, hypertension, myocardial infarction, other Surgical history: Reports: angioplasty/stent, coronary bypass (CABG), LE stent(s ) Psychiatric history: Reports: anxiety, depression - Social History Smoking Status: Former smoker Smokeless Tobacco Status: No Alcohol use: Reports: none Drug use: Reports: none Physical Exam - General Limitations: no limitations General appearance: alert, in no apparent distress - Head Head exam: atraumatic, normocephalic, normal inspection - Eye Eye exam: Present: normal appearance, PERRL, EOMI - ENT ENT exam: normal exam - Neck Neck exam: Present: normal inspection, full ROM - Chest Chest inspection: Present: normal inspection, symmetric chest wall rise - Respiratory Respiratory exam: Present: normal lung sounds bilaterally - Cardiovascular Cardiovascular exam: Present: regular rate, normal rhythm, normal heart sounds - Abdominal Exam Abdominal exam: Present: soft, Non-Tender. Absent: tenderness - Extremities Exam Extremities exam: Present: normal inspection, full ROM - Expanded Upper Extremity Exam Shoulder exam: Present: normal inspection, full ROM Arm exam: Present: normal inspection, full ROM Elbow exam: Present: normal inspection, full ROM Forearm/Wrist exam: Present: normal inspection, full ROM Hand exam: Present: normal inspection, full ROM Vascular exam: Normal: radial pulse - Expanded Lower Extremity Exam Hip/Pelvis exam: Present: normal inspection, full ROM, other (Small ecchymosis to the right inguinal area from prior catheterization without pulsatile mass, induration or bleeding noted.) Upper leg exam: Present: normal inspection, full ROM Knee exam: Present: normal inspection, full ROM Lower leg exam: Present: normal inspection, full ROM Ankle exam: Present: normal inspection, full ROM Foot/toe exam: Present: normal inspection, full ROM Neurovascular/Tendon exam: Absent: motor deficit, sensory deficit - Neurological Exam Neurological exam: Present: alert, oriented X3, CN II-XII intact - Expanded Neurological Exam Patient oriented to: Present: person, place, time Speech: Present: fluid speech Cranial nerves: EOM function (II, III, IV, ): Normal, facial sensation (V): Normal, spinal accessory function (XI): Normal, tongue deviation (XII): Normal Cerebellar function: finger to nose: Normal Motor strength - LUE: 5/5 Motor strength - RUE: 4/5 Motor strength - LLE: 5/5 Motor strength - RLE: 4/5 Sensory exam upper extremity: light touch: Abnormal Right Sensory exam lower extremity: light touch: Abnormal Right Coma Scale Eye Opening: Spontaneous Coma Scale Motor Response: Obeys Commands Coma Scale Verbal Response: Oriented Coma Scale Total: 15 - Psychiatric Psychiatric exam: Present: normal affect - Skin Skin exam: Present: warm, dry, intact Course Course Narrative: Patient seen and examined. He does have some discrepancy in terms of sensation to light touch on his right side as well as weakness. We will obtain a head CT as well as labs including troponin for chest pain. We will also obtain an arterial and venous study of his right lower extremity given his recent catheterization. - Reevaluation(s) Reevaluation #1: discussed results of imaging and lab work with the patient and family present. He reports his chest pain is gone after nitroglycerin. He also states that his weakness in his right side seems to be improving but is still there. Reevaluation #2: Patient did not remember be speaking to him so I went in again to speak about his results. He still reports continued improvement in his right-sided weakness Vital Signs Temperature 97.9 F 08/20/17 16:19 Pulse Rate 79 08/20/17 16:19 Respiratory Rate 20 08/20/17 16:19 Blood Pressure 120/73 08/20/17 16:19 O2 Sat by Pulse Oximetry 93 08/20/17 16:19 Temperature 97.9 F 08/20/17 16:19 Pulse Rate 75 08/20/17 19:55 Respiratory Rate 16 08/20/17 19:55 Blood Pressure 144/77 08/20/17 19:55 O2 Sat by Pulse Oximetry 96 08/20/17 19:55 Oxygen Delivery Oxygen Delivery Room Air Neuro Symptoms/Deficit - MDM Narrative Medical decision making narrative: 72-year-old male presents to the ER due to right sided weakness and numbness since he woke up this morning. Recent left heart catheterization without stenting 2 days ago. Was also complaining of chest pain here which resolved with nitroglycerin. EKG shows no ischemic features. CT of the head shows no acute abnormalities. He was given aspirin here. He also obtained a DVT study as well as an arterial study of his right lower extremity given his recent catheterization. He has right sided weakness as well as subjective paresthesias. These seem to be improving during his ED course. Patient except to the hospitalist service for further evaluation. - Lab Data Lab results reviewed: Yes I reviewed the patient's lab results. Result diagrams: 08/20/17 17:00 08/20/17 17:00 Lab Results 08/20/17 08/20/17 08/20/17 Range/Units 17:00 17:00 17:00 WBC 8.6 D (4.3-11.1) K/mcL RBC 4.27 (4.19-5.50) M/mcL Hgb 13.6 (12.9-16.9) g/dL Hct 41.0 (37.5-50.1) % MCV 96.0 (83.0-100.0) fL MCH 31.9 (28.0-33.3) pg MCHC 33.2 (31.6-35.5) g/dL RDW 13.7 (11.5-14.5) % Plt Count 192 (140-400) K/mcL MPV 10.7 (9.4-12.4) fL Immature Gran % 0.5 (0-4) % Seg Neutrophils % 91.2 % Lymphocytes % 6.9 % Monocytes % 1.0 % Eosinophils % 0.3 % Basophils % 0.1 % Neutrophils # 7.8 (1.6-8.9) K/mcL Lymphocytes # 0.6 (0.6-4.6) K/mcL Monocytes # 0.1 (0.0-1.3) K/mcL Eosinophils # 0.0 (0.0-0.6) K/mcL Basophils # 0.0 (0.0-0.2) K/mcL PT 12.1 (9.4-12.1) Seconds INR 1.1 APTT 25.2 L (26.0-36.0) Seconds Sodium 135 L (136-145) mEq/L Potassium 5.3 H D (3.5-4.5) mEq/L Chloride 102 (98-109) mEq/L Carbon Dioxide 22 (19-29) mEq/L BUN 12 (8-26) mg/dL Creatinine 0.92 (0.72-1.25) mg/dL Est GFR ( Amer) > 60 (> 60) Est GFR (Non-Af Amer) > 60 (> 60) BUN/Creatinine Ratio 13 (6-26) Glucose 118 H (70-99) mg/dL Calculated Osmolality 281 (280-300) Calcium 9.2 (8.6-10.8) mg/dL Troponin I (0-0.03) ng/mL B-Natriuretic Peptide (0-100) pg/mL 08/20/17 08/20/17 Range/Units 17:00 17:00 WBC (4.3-11.1) K/mcL RBC (4.19-5.50) M/mcL Hgb (12.9-16.9) g/dL Hct (37.5-50.1) % MCV (83.0-100.0) fL MCH (28.0-33.3) pg MCHC (31.6-35.5) g/dL RDW (11.5-14.5) % Plt Count (140-400) K/mcL MPV (9.4-12.4) fL Immature Gran % (0-4) % Seg Neutrophils % % Lymphocytes % % Monocytes % % Eosinophils % % Basophils % % Neutrophils # (1.6-8.9) K/mcL Lymphocytes # (0.6-4.6) K/mcL Monocytes # (0.0-1.3) K/mcL Eosinophils # (0.0-0.6) K/mcL Basophils # (0.0-0.2) K/mcL PT (9.4-12.1) Seconds INR APTT (26.0-36.0) Seconds Sodium (136-145) mEq/L Potassium (3.5-4.5) mEq/L Chloride (98-109) mEq/L Carbon Dioxide (19-29) mEq/L BUN (8-26) mg/dL Creatinine (0.72-1.25) mg/dL Est GFR ( Amer) (> 60) Est GFR (Non-Af Amer) (> 60) BUN/Creatinine Ratio (6-26) Glucose (70-99) mg/dL Calculated Osmolality (280-300) Calcium (8.6-10.8) mg/dL Troponin I 0.01 (0-0.03) ng/mL B-Natriuretic Peptide 502 H (0-100) pg/mL - Radiology Data Radiology results reviewed: Yes I reviewed the patient's radiology results. Head CT 08/20/17 16:42 IMPRESSION: No acute intracranial abnormality. D/ / Cherry Elizabeth Cha, MD / Cherry Elizabeth Cha, MD Interpreting Provider: Cherry Elizabeth Cha, MD Chest X-Ray 08/20/17 18:08 IMPRESSION: 1. Minimal left basilar atelectasis. 2. Pulmonary vascular congestion. D/ / Lalito Bello MD / Lalito Bello MD Interpreting Provider: Lalito Bello MD - EKG Data EKG attestation: Yes I reviewed and interpreted this EKG. EKG results narrative: EKG demonstrates sinus rhythm with left bundle branch block and PVCs with a rate of 74 bpm. Left axis deviation. Poor R-wave progression. Nonspecific ST- T wave changes secondary to bundle branch block. There is ST depression in the lateral leads. No gross ST elevations. No significant changes from previous EKG dated 08/18/17. NIH Stroke Scale - Level of Consciousness LOC: Alert - LOC Questions LOC Questions: Answers both correctly - LOC Commands LOC Commands: Performs both correctly - Best Gaze Best Gaze: Normal - Visual Visual: No visual loss - Facial Palsy Facial Palsy: Normal - Motor Arms Motor Arm-Left: No drift for 10 seconds Motor Arm-Right: No drift for 10 seconds - Motor Legs Motor Leg-Left: No drift for 5 seconds Motor Leg-Right: No drift for 5 seconds - Limb Ataxia Limb Ataxia: Absent of affected limb too weak to perform exam - Sensory Sensory: Mild to moderate loss, "not as sharp" - Best Language Best Language: No aphasia - Dysarthria Dysarthria: Normal - Extinction and Inattention Extinction and Inattention: Normal - NIHSS Total Score NIHSS Total Score: 1 S.B.A.R. - S.B.A.R. Situation: Demographics, MOA Background: Presenting Complaint, Relevant PMH, Meds, & Allergies Assessment: Vital Signs, Course and respsone to treatment, Exam Concerns, Patient/Family Expectation, Pertinant Lab Results Recommendation: Barrier(s) to disposition, Recommendation based on pending studies, treatments, or consults S.B.A.RRubina Report Given to: Dr. Krishna Dixon Repor Time: 19:45 Attestation Statement - Attestation Attestation: Patient was seen with resident physician. I reviewed the history, physical, assessment and plan, and agree with the findings. I also personally evaluated this patient and had [id number] time with this patient. 72-year-old male status post heart catheterization which apparently was normal 2 days ago. Complains of right arm and leg numbness and chest pressure. Patient states that he was chest pain and pressure free until after the catheterization and today. Now he has chest pressure which is different in this feeling than the kind of pain he had which prompted the catheterization. He says that the pain is rated 2 out of 10. He also has numbness in the right upper and lower extremities. He describes as tingling. No other focal neurologic deficits. On exam vital signs are stable. ENT is unremarkable. Heart is normal. Lungs are normal. Abdomen is soft and nontender. Extremities are unremarkable no obvious signs of trauma. Neurologically alert and oriented with no focal neurologic deficits. [employer] strength and strength in the upper or lower extremities are even per my exam. ED course we will do a stroke symptom workup. With the chest pressure will likely readmit the patient for additional evaluation treatment once the initial workup is complete. Hemodynamically the patient remained stable in the ER. CT that was negative. Other labs did not show positive abnormalities for his symptoms. Hospitalist was notified and admission was arranged. Agree with the resident physician assessment and plan.
[2017-08-20] MEDS: Nitroglycerin 0.4 MG TAB.SUBL SL PRN ×2 (17:17→23:20)
[2017-08-20 17:21] LABS: Basophils % 0.1 %; Eosinophils % 0.3 %; Hemoglobin 13.6 g/dL (12.9-16.9); Immature Granulocytes % 0.5 % (0-4); Lymphocytes # 0.6 K/mcL (0.6-4.6); Lymphocytes % 6.9 %; Mean Corpuscular HGB Conc 33.2 g/dL (31.6-35.5); Mean Corpuscular Hemoglobin 31.9 pg (28.0-33.3); Mean Platelet Volume 10.7 fL (9.4-12.4); Monocytes # 0.1 K/mcL (0.0-1.3); Platelet Count 192 K/mcL (140-400); Red Blood Count 4.27 M/mcL (4.19-5.50); Red Cell Distribution Width 13.7 % (11.5-14.5); Segmented Neutrophils % 91.2 %
[2017-08-20 17:23] LABS: Neutrophils # 7.8 K/mcL (1.6-8.9)
[2017-08-20 17:24] LABS: INR 1.1; Prothrombin Time 12.1 Seconds (9.4-12.1)
[2017-08-20 17:27] LABS: Activated Partial Thrombo Time 25.2 Seconds (26.0-36.0)
[2017-08-20 17:33] LABS: BUN/Creatinine Ratio 13 (6-26); Blood Urea Nitrogen 12 mg/dL (8-26); Calcium 9.2 mg/dL (8.6-10.8); Carbon Dioxide 22 mEq/L (19-29); Chloride 102 mEq/L (98-109); Glucose 118 mg/dL (70-99); Osmolality,Calculated 281 (280-300); Sodium 135 mEq/L (136-145); eGFR For African Americans > 60 (> 60); eGFR For Non-African Americans > 60 (> 60)
[2017-08-20 17:34] LABS: Potassium 5.3 mEq/L (3.5-4.5)
[2017-08-20] MEDS ORDERED: Calcium Gluconate 1,000 MG in D5% in Water 100 ML IVPB ONE (20:53)
[2017-08-20] MEDS ORDERED: Insulin LISPRO 300 UNITS/3 ML VIAL SQ ONE (20:54)
[2017-08-20] MEDS ORDERED: *HR* Dextrose 50 % in Water (Vial) 50 ML VIAL IVP ONE (20:54)
[2017-08-20] MEDS ORDERED: *HR* Dextrose 50 % in Water (Syg) 50 ML SYRINGE IVP ONE (21:00)
--- NOTE | 2017-08-20 21:52 | Event Note ---
Date of Encounter: 08/20/17 Time of Encounter: 21:50 Patient and examined with nurse practitioner. Agree with assessment and plan. Acute left CVA causing mild right-sided weakness. Motor power in the right upper and lower extremities 4/5. Onset of symptoms since this morning since the patient woke up. Patient is out of window. NIH stroke scale Q4 hours. Stroke workup. Neurology consultation. Patient potassium is 5.3 with by she meaning on electrocardiogram. We will correct and recheck
[2017-08-20] MEDS ORDERED: Naloxone 0.4 MG/ML INJ IVP PRN (22:29)
--- NOTE | 2017-08-20 22:48 | Internal Med History&Physical ---
Date of Encounter: 08/20/17 Time of Encounter: 22:41 Assessment and Plan (1) CVA (cerebrovascular accident due to intracerebral hemorrhage) Current visit: Yes Status: Suspected 1 patient had heart cath 2 days, He discharged home yesterday This am he awoke and experienced right-sided numbness and weakness to his arm and leg. CT of his head was negative for any intracranial abnormalities. We will obtain MRI MRA brain without contrast. NIH stroke assessment Obtain carotid Doppler Continue with aspirin and statin Bedside swallow evaluation PT OT Fall precautions We will consult neurology Qualifiers: Intracerebral hemorrhage etiology: nontraumatic Cerebral hemorrhage location: unspecified cerebral location Laterality: unspecified laterality Qualified Code(s): I61.9 - Nontraumatic intracerebral hemorrhage, unspecified (2) Coronary artery disease Current visit: No Status: Chronic 1 continue aspirin and statin- nitroglycerin as he for chest pain Continue his current monitoring for now Qualifiers: Coronary Disease-Associated Artery/Lesion type: [place] artery [place] vs. transplanted heart: [place] heart Associated angina: with unstable angina Qualified Code(s): I25.110 - Atherosclerotic heart disease of [place] coronary artery with unstable angina pectoris (3) Essential hypertension Current visit: No Status: Chronic 1 presently blood pressure is 150 160 systolic we will hold antihypertensives for now allow for permissive hypertension (4) Hyperlipidemia Current visit: No Status: Chronic Continue a statin Qualifiers: Hyperlipidemia type: mixed hyperlipidemia Qualified Code(s): E78.2 - Mixed hyperlipidemia (5) COPD (chronic obstructive pulmonary disease) Current visit: No Status: Chronic Continue with bronchodilators and oxygen as needed Qualifiers: COPD type: unspecified COPD Qualified Code(s): J44.9 - Chronic obstructive pulmonary disease, unspecified (6) DVT prophylaxis Current visit: No Status: Acute Lovenox [facility] Internal Medicine - H&P: HPI Chief complaint: R sided weakness Admitted From: Emergency Dept Plans for Post Hospital Care: Home History of present illness: Mr. Alarcon is a 72 year old male past medical history of hypertension hyperlipidemia CAD with stent placement CABG 2002 CVA COPD. patient underwent left heart catheterization 2 days ago without stent placement. He was discharged yesterday Today he he awoke and noticed that he had some weakness/ numbness in his right leg and right arm. He checked his blood pressure and was concerned about it being too low so he called the nurse on 3A unit. We advised him to go to the ER for evaluation. He denies any recent falls or head injuries. He does report some chest pressure today however is not expressing any chest pressure at this time. CT of head was negative for any intracranial abnormalities, EKG was sinus rhythm and bigeminal PVCs and left bundle branch block which was present on previous EKG. Troponin was 0.01 he did have some hyperkalemia he was admitted for further workup and evaluation presently the patient feels as if he is almost back to baseline. He continues to have some weakness to his right leg. Feels his arm has improved. Cranial nerves II through XII are intact he is alert appropriate following simple commands. Motor power in right upper and lower extremities 4 over 5 he seems stable at this time. I did review this case with Dr. Keller who agrees with plan. Past Med Surg Social Fam HX - Past Medical History Medical history: COPD, coronary artery disease, CVA, GERD, hyperlipidemia, hypertension, myocardial infarction, other Psychiatric history: anxiety, depression - Past Surgical History Surgical History: angioplasty/stent, coronary bypass (CABG), LE stent(s) - Social History Smoking Status: Former smoker Smokeless Tobacco Status: No Alcohol use: none Drug use: none - Family History Brother Hx Family Cardiac Disorders: Yes (DC, Murmur) Hx Family Respiratory Disorders: No Hx Family Cancer: No Hx Family GI Disorders: No Hx Family Endocrine Disorder: No Hx Family Neuromuscular Disorders: No Hx Family Neurologic Disorders: No Hx Family HEENT Disorders: No Hx Family Autoimmune Disorders: No Mother Living Status: Hx Family Cancer: Yes Internal Medicine - H&P: Meds Albuterol Sulfate [Proair Hfa] 2 puff IH Q6H PRN 07/22/16 [History] Atorvastatin [Lipitor] 40 mg PO HS 07/22/16 [History] Cetirizine HCl [Zyrtec] 10 mg PO DAILY 07/22/16 [History] Clopidogrel [Plavix] 75 mg PO DAILY 07/22/16 [History] Esomeprazole Magnesium [Nexium] 40 mg PO DAILY 07/22/16 [History] Fluticasone/Salmeterol [Advair 250-50 Diskus] 1 puff IH Q12H 07/22/16 [History] OxyCODONE/APAP 7.5/325 [Percocet 7.5/325 MG] 1 each PO Q6H PRN 07/22/16 [History ] Tiotropium [Spiriva] 18 mcg IH DAILY 07/22/16 [History] Ondansetron HCl [Zofran] 4 - 8 mg PO TIDAC PRN 03/09/17 [History] Ranolazine [Ranexa] 1,000 mg PO BID #120 tab.er.12h 03/10/17 [Rx] Carvedilol 3.125 mg PO BID 08/17/17 [History] Aspirin 81 mg PO DAILY tab.chew 08/19/17 [Rx] Aspirin 81 mg PO DAILY #30 tab.chew 08/19/17 [Rx] Ipratropium/Albuterol Neb [Duoneb] 3 ml IH Q6HR PRN #30 inhsol 08/19/17 [Rx] Isosorbide MONOnitrate (24 HR) [Imdur] 30 mg PO DAILY #30 tab.er.24h 08/19/17 [ Rx] predniSONE [PredniSONE] 20 mg PO DAILY #7 tablet 08/19/17 [Rx] 3 Allergy/AdvReac Type Severity Reaction Status Date / Time venlafaxine [From Effexor] AdvReac Vomiting Verified 08/17/17 16:32 All Systems PM: A 10-system review of systems was performed and is negative for pertinent findings except as documented above in the HPI. - Constitutional Constitutional: weakness, no chills, no fever(s), no night sweats - EENT Eyes: no change in vision, no discharge, no pain, no photophobia Nose, mouth and throat: no dysphagia, no nasal discharge, no neck pain, no sore throat - Cardiovascular Cardiovascular ROS IM: chest pain, no diaphoresis, no dyspnea, no lightheadedness, no palpitations, no syncope - Respiratory Respiratory: no cough, no dyspnea, no wheezing, no excessive phlegm production - Gastrointestinal Gastrointestinal: no abdominal pain, no diarrhea, no hematemesis, no hematochezia, no melena, no nausea, no vomiting - Musculoskeletal Musculoskeletal ROS IM: no numbness, no tingling - Integumentary Integumentary IM: no rash, no unusual bruising - Neurological Neurological ROS: numbness, weakness, no confusion, no convulsions, no focal weakness, no tingling, no tremor(s) - Hematologic/Lymphatic Hematologic/Lymphatic: no easy bruising - Constitutional Vitals: Temp Pulse Resp BP Pulse Ox 97.6 F 78 16 151/75 94 08/20/17 21:25 08/20/17 21:25 08/20/17 21:25 08/20/17 21:25 08/20/17 21:25 General appearance: Present: A&O X 3, answers questions appropriately - Head Head exam: Present: atraumatic, normocephalic - Eye Eye exam: Present: PERRL, conjuntiva pink, sclera anicteric Pupils: Present: PERRL - Neck Neck exam general surgery: Present: supple, trachea midline. Absent: lymphadenopathy - Respiratory Respiratory exam: Present: rales. Absent: accessory muscle use, rhonchi, wheezes - Cardiovascular Cardiovascular exam: Present: RRR, +S1, +S2. Absent: diastolic murmur, gallop, rubs, systolic murmur - GI/Abdominal GI/Abdominal exam: Present: normal bowel sounds, soft, no peritoneal signs. Absent: distended, tenderness - Extremities Exam Extremities exam: Present: warm, radial pulses palpable and symmetrical. Absent : calf tenderness, cyanotic, pedal edema - Neurological Exam Neurological exam: Present: CN II-XII intact, oriented X3, no focal deficits. Absent: pronater drift, facial droop, speech deficit - Expanded Neurological Exam Neuro motor strength exam: LUE: 5, RUE: 4, LLE: 5, RLE: 4 Coma Scale Eye Opening: Spontaneous Coma Scale Motor Response: Obeys Commands Coma Scale Verbal Response: Oriented Coma Scale Total: 15 - Skin Skin exam: Present: dry, intact Internal Med - H&P Results - Labs CBC & Chem 7: 08/20/17 17:00 08/20/17 21:36 Labs: BMP 08/20/17 21:36 Potassium 4.2 D - EKG Data EKG shows normal: sinus rhythm - EKG Data Prior EKG available for review: yes When compared to previous EKG: there is no significant change - Diagnostic Studies Other Images Additional comments: Head CT 08/20/17 16:42 IMPRESSION: No acute intracranial abnormality. D/ / Cherry Elizabeth Cha, MD / Cherry Elizabeth Cha, MD Interpreting Provider: Cherry Elizabeth Cha, MD Chest X-Ray 08/20/17 18:08 IMPRESSION: 1. Minimal left basilar atelectasis. 2. Pulmonary vascular congestion. D/ / Lalito Bello MD / Lalito Bello MD Interpreting Provider: Lalito Bello MD
[2017-08-20] MEDS: *HR* OxyCODONE/APAP 7.5/325 TABLET PO PRN (23:29)
[2017-08-21] MEDS: Budesonide/Formoterol 80/4.5 MDI IH SCH ×3 (00:11→21:55)
[2017-08-21] MEDS ORDERED: Ipratropium/Albuterol Neb 3 ML IH PRN (04:00)
[2017-08-21 05:07] LABS: Basophils % 0.3 %; Eosinophils # 0.2 K/mcL (0.0-0.6); Eosinophils % 2.8 %; Hematocrit 35.9 % (37.5-50.1); Immature Granulocytes % 0.3 % (0-4); Lymphocytes # 1.5 K/mcL (0.6-4.6); Lymphocytes % 20.7 %; Mean Corpuscular HGB Conc 32.9 g/dL (31.6-35.5); Mean Corpuscular Hemoglobin 31.2 pg (28.0-33.3); Mean Platelet Volume 10.5 fL (9.4-12.4); Monocytes # 0.5 K/mcL (0.0-1.3); Monocytes % 6.4 %; Platelet Count 173 K/mcL (140-400); Red Blood Count 3.78 M/mcL (4.19-5.50); Red Cell Distribution Width 13.8 % (11.5-14.5); Segmented Neutrophils % 69.5 %
[2017-08-21 05:29] LABS: Hemoglobin 11.8 g/dL (12.9-16.9)
[2017-08-21 05:45] LABS: BUN/Creatinine Ratio 14 (6-26); Blood Urea Nitrogen 16 mg/dL (8-26); Calcium 8.8 mg/dL (8.6-10.8); Carbon Dioxide 27 mEq/L (19-29); Chloride 106 mEq/L (98-109); Chol/HDL Ratio 3.4 (0-4.9); Cholesterol 143 mg/dL (< 200); Glucose 155 mg/dL (70-99); HDL Cholesterol 42 mg/dL (40-59); LDL Cholesterol,Calculated 84 mg/dL (0-99); Magnesium 1.9 mg/dL (1.6-2.6); Osmolality,Calculated 292 (280-300); Potassium 3.7 mEq/L (3.5-4.5); Sodium 139 mEq/L (136-145); Triglycerides 85 mg/dL (< 150); eGFR For African Americans > 60 (> 60); eGFR For Non-African Americans > 60 (> 60)
[2017-08-21] MEDS: Tiotropium 18 MCG inhalation IH SCH (07:48)
[2017-08-21] MEDS: Ranolazine 500 MG TAB.ER.12H PO SCH ×2 (08:09→20:27)
[2017-08-21] MEDS: Loratadine 10 MG TABLET PO SCH (08:09)
[2017-08-21] MEDS: Aspirin 81 MG TAB.CHEW PO SCH (08:09)
[2017-08-21] MEDS: predniSONE 20 MG TABLET PO SCH (08:10)
[2017-08-21] MEDS ORDERED: Isosorbide MONOnitrate (24 HR) 30 MG TAB.ER.24H PO SCH (09:00)
[2017-08-21] MEDS ORDERED: NON-FORMULARY MEDICATION 1 EACH EACH (Carvedilol [Carvedilol] 3.125 MG) PO SCH (09:00)
--- NOTE | 2017-08-21 11:59 | Neurology - Consult Note ---
Date of Encounter: 08/21/17 Time of Encounter: 07:55 Assessment and Plan (1) Right sided weakness Current Visit: Yes Status: Acute at this time pt does not have any significant weakness of arms or legs and no sensory symptoms he has multiple risk factors for stroke and TIA suggest stroke workup with MRI of brain, carotid and Echo, continue on ASA for now monitor Blood pressure and lipid as well as for any arrhythmias. other possibility that leg weakness could be localized and from back PT evaluation as well History of Present Illness HPI: Mr. Alarcon is a 72 year old male with past medical history of hypertension hyperlipidemia CAD with stent placement CABG 2001 CVA, admited with right leg weakness and numbness, according to patient he underwent left heart catheterization 2 days ago without stent placement. later He was discharged home today when he woke up he noticed that he had some weakness/numbness in his right leg and right arm. He does report some chest pressure today however no chest pain, CT of head was negative for any intracranial abnormalities, EKG was sinus rhythm and bigeminal PVCs and left bundle branch block which was present on previous EKG. Troponin was 0.01. He continues to complain of some weakness of his right leg. Feels his arm has improved. Past Med Surg Social Fam HX - Past Medical History Medical history: COPD, coronary artery disease, CVA, GERD, hyperlipidemia, hypertension, myocardial infarction, other Psychiatric history: anxiety, depression - Past Surgical History Surgical History: angioplasty/stent, coronary bypass (CABG), LE stent(s) - Social History Smoking Status: Former smoker Smokeless Tobacco Status: No Alcohol use: none Drug use: none - Family History Brother Hx Family Cardiac Disorders: Yes (CA, Murmur) Hx Family Respiratory Disorders: No Hx Family Cancer: No Hx Family GI Disorders: No Hx Family Endocrine Disorder: No Hx Family Neuromuscular Disorders: No Hx Family Neurologic Disorders: No Hx Family HEENT Disorders: No Hx Family Autoimmune Disorders: No Mother Living Status: Hx Family Cancer: Yes Medications and Allergies Albuterol Sulfate [Proair Hfa] 2 puff IH Q6H PRN 07/22/16 [History] Atorvastatin [Lipitor] 40 mg PO HS 07/22/16 [History] Cetirizine HCl [Zyrtec] 10 mg PO DAILY 07/22/16 [History] Clopidogrel [Plavix] 75 mg PO DAILY 07/22/16 [History] Esomeprazole Magnesium [Nexium] 40 mg PO DAILY 07/22/16 [History] Fluticasone/Salmeterol [Advair 250-50 Diskus] 1 puff IH Q12H 07/22/16 [History] OxyCODONE/APAP 7.5/325 [Percocet 7.5/325 MG] 1 each PO Q6H PRN 07/22/16 [History ] Tiotropium [Spiriva] 18 mcg IH DAILY 07/22/16 [History] Ondansetron HCl [Zofran] 4 - 8 mg PO TIDAC PRN 03/09/17 [History] Ranolazine [Ranexa] 1,000 mg PO BID #120 tab.er.12h 03/10/17 [Rx] Carvedilol 3.125 mg PO BID 08/17/17 [History] Aspirin 81 mg PO DAILY #30 tab.chew 08/19/17 [Rx] Ipratropium/Albuterol Neb [Duoneb] 3 ml IH Q6HR PRN #30 inhsol 08/19/17 [Rx] Isosorbide MONOnitrate (24 HR) [Imdur] 30 mg PO DAILY #30 tab.er.24h 08/19/17 [ Rx] predniSONE [PredniSONE] 20 mg PO DAILY #7 tablet 08/19/17 [Rx] 3 Allergy/AdvReac Type Severity Reaction Status Date / Time venlafaxine [From Effexor] AdvReac Vomiting Verified 08/17/17 16:32 All Systems: A 10-system review of systems was performed and is negative for pertinent findings except as documented above in the HPI. Physical Examination - Vital Signs Vital Signs: Initial Vital Signs Temp Pulse Resp BP Pulse Ox 97.9 F 79 20 120/73 93 08/20/17 16:19 08/20/17 16:19 08/20/17 16:19 08/20/17 16:19 08/20/17 16:19 - Constitutional General appearance: comfortable - Neurologic Detailed motor examination: full strength in all major muscle groups Motor examination - right side: 02/24: deltoids, biceps, triceps, wrist flexion, wrist extension, architecture internship, hip flexors, tibialis Anterior, quadriceps, toe extension (EHL), plantarflexion Motor examination - left side: 02/24: deltoids, biceps, triceps, wrist flexion, wrist extension, hip flexors, architecture internship, quadriceps, tibialis Anterior, toe extension (EHL), plantarflexion Detailed sensory examination: intact Reflexes: Biceps: 1+, Triceps: 1+, Brachioradialis: 1+, Patella: 1+, Achilles: 1 + Mental Status Examination: awake, alert, oriented to person, oriented to place, oriented to time, follows commands appropriately, answers questions appropriately, no agnosia, no aphasia, no aproxia Cranial nerve examination: PERRL, EOMI, visual miller intact, corneal reflexes brisk symmetrically, sensory to face intact, mastication intact, no facial asymmetry is present, no dysarthria, hearing is intact symmetrically, soft palate elevates bilaterally upon phonation, gag reflex intact, flexes SCM and trapezius muscles symmetrically with full power, tongue protrudes midline, no atrophy or facial fasiculations present Cerebellar examination: no dysmetria, performs finger to nose and heel to lopez symmetrically without ataxia, no gait ataxia, no truncal ataxia, no difficulty with rapid alternating movements Results - Laboratory Findings CBC and BMP: 08/21/17 04:49 08/21/17 04:49 Abnormal lab findings: Abnormal lab results RBC 3.78 M/mcL (4.19-5.50) L 08/21/17 04:49 Hgb 11.8 g/dL (12.9-16.9) L D 08/21/17 04:49 Hct 35.9 % (37.5-50.1) L 08/21/17 04:49 APTT 25.2 Seconds (26.0-36.0) L 08/20/17 17:00 Glucose 155 mg/dL (70-99) H 08/21/17 04:49 POC Glucose 102 (58-89) H 08/20/17 21:21 B-Natriuretic Peptide 502 pg/mL (0-100) H 08/20/17 17:00 Consult Discharge Plan - Plan Referrals: Miguel Ball MD [Primary Care Provider] -
--- NOTE | 2017-08-21 17:19 | Electrocardiograph Report ---
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
--- NOTE | 2017-08-21 18:36 | Internal Med Progress Note ---
Date of Encounter: 08/21/17 Time of Encounter: 11:30 - Assessment and plan (1) TIA (transient ischemic attack) Current Visit: Yes Status: Suspected Assessment and plan: Appreciate neuro input. MRI pending. Await results for further plan. Qualifiers: Transient cerebral ischemia type: carotid artery syndrome (hemispheric) Qualified Code(s): G45.1 - Carotid artery syndrome (hemispheric) (2) Coronary artery disease Current Visit: No Status: Chronic Assessment and plan: S/P stent. Continue home meds. Qualifiers: Coronary Disease-Associated Artery/Lesion type: [place] artery [place] vs. transplanted heart: [place] heart Associated angina: without angina Qualified Code(s): I25.10 - Atherosclerotic heart disease of [place] coronary artery without angina pectoris (3) Essential hypertension Current Visit: No Status: Chronic Assessment and plan: Continue home meds. (4) Hyperlipidemia Current Visit: No Status: Chronic Assessment and plan: Continue home meds. Qualifiers: Hyperlipidemia type: mixed hyperlipidemia Qualified Code(s): E78.2 - Mixed hyperlipidemia - Subjective Interval history: Mr Alarcon is currently in observation due to R side weakness. Mr Alarcon is feeling OK. No fever or chills. He is awaiting MRI. No CP or SOB. - Constitutional Vitals: Temp Pulse Resp BP Pulse Ox 98.0 F 73 16 121/70 94 08/21/17 15:49 08/21/17 15:49 08/21/17 15:49 08/21/17 15:49 08/21/17 15:49 General appearance: Present: A&O X 3, answers questions appropriately - Head Head exam: Present: normocephalic - Eye Eye exam: Present: EOMI, conjuntiva pink - ENT ENT exam: Present: mucous membranes moist - Respiratory Respiratory exam: Present: CTAB. Absent: rhonchi, wheezes - Cardiovascular Cardiovascular exam: Present: RRR. Absent: tachycardia - GI/Abdominal GI/Abdominal exam: Present: soft. Absent: tenderness - Extremities Exam Extremities exam: Present: warm. Absent: tenderness - Neurological Exam Neurological exam: Present: alert, oriented X3 Additional comments: R leg somewhat weaker than L. - Skin Skin exam: Present: warm. Absent: dry, rash Internal Medicine: Result - Labs CBC & Chem 7: 08/21/17 04:49 08/21/17 04:49 Labs: Short CBC 08/21/17 Range/Units 04:49 WBC 7.2 (4.3-11.1) K/mcL Hgb 11.8 L D (12.9-16.9) g/dL Hct 35.9 L (37.5-50.1) % Plt Count 173 (140-400) K/mcL Neutrophils # 5.0 (1.6-8.9) K/mcL BMP 08/20/17 08/21/17 21:36 04:49 Sodium 139 Potassium 4.2 D 3.7 Chloride 106 Carbon Dioxide 27 BUN 16 Creatinine 1.12 Glucose 155 H Calcium 8.8 Cardiac Enzymes 08/20/17 08/21/17 Range/Units 22:44 04:49 Troponin I 0.02 0.01 (0-0.03) ng/mL - ABG Interpretation ABG results: PT/INR, D-dimer PT 12.1 Seconds (9.4-12.1) 08/20/17 17:00 - Impressions Impressions Brain MRI 08/21/17 12:23 IMPRESSION: No acute intracranial abnormality. Minimal chronic small vessel ischemic changes. Minimal opacification of the right mastoid air cells. D/ / 08/21/2017 14:30:42 Kimberly Olguin MD / sherlyn Interpreting Provider: Kimberly Olguin MD Head MRA 08/21/17 12:23 IMPRESSION: No significant abnormality of the intracranial circulation. D/ / 08/21/2017 14:28:39 Kimberly Olguin MD / eliel Interpreting Provider: Kimberly Olguin MD Neck MRA 08/21/17 12:23 IMPRESSION: No significant abnormality of the neck vessels. D/ / 08/21/2017 14:47:00 Kimberly Olguin MD / eliel Interpreting Provider: Kimberly Olguin MD Consult Discharge Plan - Plan Referrals: Miguel Ball MD [Primary Care Provider] -
[2017-08-21] MEDS: *HR* OxyCODONE/APAP 7.5/325 TABLET PO PRN (23:20)
[2017-08-22] MEDS: Budesonide/Formoterol 80/4.5 MDI IH SCH (08:00)
[2017-08-22] MEDS: Tiotropium 18 MCG inhalation IH SCH (08:01)
[2017-08-22] MEDS: Aspirin 81 MG TAB.CHEW PO SCH (09:13)
[2017-08-22] MEDS: predniSONE 20 MG TABLET PO SCH (09:13)
[2017-08-22] MEDS: Ranolazine 500 MG TAB.ER.12H PO SCH (09:13)
[2017-08-22] MEDS: Loratadine 10 MG TABLET PO SCH (09:13)
[2017-08-22 10:46] VITALS: BP 129/72
--- NOTE | 2017-08-22 11:04 | Discharge Summary ---
Date of Encounter: 08/22/17 Time of Encounter: 07:50 - Discharge Diagnosis (1) TIA (transient ischemic attack) Priority: Primary Status: Acute Comments: Transient ischemic attack - initially presented with right leg weakness and numbness - symptoms have now completely resolved Continue Aspirin, Plavix, Lipitor EKG - sinus rhythm with no acute ST-T changes Troponin - negative CT head - no acute intracranial abnormality Chest x-ray - minimal left basilar atelectasis MRI brain - no acute intracranial abnormality, chronic small vessel ischemic changes MRA head and neck - no significant abnormality of the intracranial circulation, no significant abnormality of the neck vessels Neurology consult - recommendations reviewed, Appreciate input Patient states he feels better and wants to go home today Advised to return if symptoms worsen, advised close follow-up with PCP Qualifiers: Transient cerebral ischemia type: carotid artery syndrome (hemispheric) Qualified Code(s): G45.1 - Carotid artery syndrome (hemispheric) (2) COPD (chronic obstructive pulmonary disease) Priority: Secondary Status: Chronic Comments: COPD, stable Continue DuoNeb breathing treatment, Symbicort, Prednisone Qualifiers: COPD type: unspecified COPD Qualified Code(s): J44.9 - Chronic obstructive pulmonary disease, unspecified (3) Coronary artery disease Priority: Primary Status: Chronic Comments: Coronary artery disease status post CABG and stents - stable Continue aspirin, Plavix, statin, Coreg, Imdur [facility] - no intervention needed, stable CAD, bypass grafts patent Watch for hypotension Echocardiogram - LVEF 50%, normal LV chamber size Qualifiers: Coronary Disease-Associated Artery/Lesion type: [place] artery [place] vs. transplanted heart: [place] heart Associated angina: without angina Qualified Code(s): I25.10 - Atherosclerotic heart disease of [place] coronary artery without angina pectoris (4) Essential hypertension Priority: Secondary Status: Chronic Comments: Essential hypertension, controlled, monitor Continue home dose of Coreg Imdur added - watch for hypotension (5) Hyperlipidemia Priority: Secondary Status: Chronic Comments: Continue Lipitor Qualifiers: Hyperlipidemia type: mixed hyperlipidemia Qualified Code(s): E78.2 - Mixed hyperlipidemia - Discharge Medications Prescriptions: Nitroglycerin 0.4 mg SL Q5MIN PRN #14 tab.subl PRN Reason: Chest Pain Clopidogrel [Plavix] 75 mg PO DAILY #30 tablet Home Medications: Albuterol Sulfate [Proair Hfa] 2 puff IH Q6H PRN 07/22/16 [History] Atorvastatin [Lipitor] 40 mg PO HS 07/22/16 [History] Cetirizine HCl [Zyrtec] 10 mg PO DAILY 07/22/16 [History] Esomeprazole Magnesium [Nexium] 40 mg PO DAILY 07/22/16 [History] Fluticasone/Salmeterol [Advair 250-50 Diskus] 1 puff IH Q12H 07/22/16 [History] OxyCODONE/APAP 7.5/325 [Percocet 7.5/325 MG] 1 each PO Q6H PRN 07/22/16 [History ] Tiotropium [Spiriva] 18 mcg IH DAILY 07/22/16 [History] Ondansetron HCl [Zofran] 4 - 8 mg PO TIDAC PRN 03/09/17 [History] Ranolazine [Ranexa] 1,000 mg PO BID #120 tab.er.12h 03/10/17 [Rx] Carvedilol 3.125 mg PO BID 08/17/17 [History] Aspirin 81 mg PO DAILY #30 tab.chew 08/19/17 [Rx] Ipratropium/Albuterol Neb [Duoneb] 3 ml IH Q6HR PRN #30 inhsol 08/19/17 [Rx] Isosorbide MONOnitrate (24 HR) [Imdur] 30 mg PO DAILY #30 tab.er.24h 08/19/17 [ Rx] predniSONE [PredniSONE] 20 mg PO DAILY #7 tablet 08/19/17 [Rx] Clopidogrel [Plavix] 75 mg PO DAILY #30 tablet 08/22/17 [Rx] Nitroglycerin 0.4 mg SL Q5MIN PRN #14 tab.subl 08/22/17 [Rx] Allergies/Adverse Reactions: 3 Allergy/AdvReac Type Severity Reaction Status Date / Time venlafaxine [From Effexor] AdvReac Vomiting Verified 08/17/17 16:32 Procedures/tests Complete & Pending: Procedures Performed prior 72 hours Category Date Time Status MR angio head wo con [MR] Routine MRI 08/21/17 12:23 Draft MR angio neck wo/w con [MR] Routine MRI 08/21/17 12:23 Draft MR head/brain wo con [MR] Routine MRI 08/21/17 12:23 Draft ECG 12 lead ECG [ECG] Routine Y 08/20/17 16:53 Completed EV carotid duplex imaging BI Routine Y 08/21/17 22:49 Completed Date of admission: 08/20/17 20:15 Primary care physician: Miguel Ball MD Consults: 08/20/17 22:32 Consult to Occupational Therapy [CONS] Routine Comment: Evaluate, develop and implement POC Reason for Consult: R sided weakness 08/20/17 22:33 Consult to Physical Therapy [CONS] Routine Comment: Evaluate, develop and implement POC Reason for Consult: R sided weaknes 08/20/17 22:37 Consult to Neurology [CONS] Routine Consulting Provider: [facility] Reason for Consult: R lower extremity weakness Time Notified: 22:38 Call Completed: No 08/21/17 12:15 Consult to Photo Editor [CONS] Routine Reason for SW Consult: re-admission and discharge planning Anticipated date of discharge: 08/22/17 - Patient Status Disposition: Home, Self-Care Condition: Good Functional capacity at discharge: independent ambulation Overall status at discharge: patient is back to baseline - Discharge Instructions Instructions: Nitroglycerin (By mouth), Clopidogrel (By mouth) Follow Up With: Miguel Ball MD [Primary Care Provider] - 08/24/17 9:45 am - Diet and Activity Activity: increase activity as tolerated, resume usual activities as tolerated Diet: low fat, low cholesterol, low salt diet Hospital course: Mr. Alarcon is a 72 year old male past medical history of COPD, coronary artery disease status post CABG, CVA, GERD, hyperlipidemia, upper tension, anxiety and depression. Patient presented to the ED with complaints of right-sided weakness. Initial workup including CT head did not show any acute intracranial abnormality. MRI of brain did not show any acute abnormality, there is chronic small vessel ischemic changes. MRI of the head and neck does not show any significant abnormality of the intracranial circulation or vessels in the neck. EKG did not show any acute ST-T changes. Troponin is negative. Neurology was consulted. They evaluated the patient and recommended to continue aspirin, Plavix and statin. Patient likely had a TIA which causes right leg weakness and numbness. Symptoms are now completely resolved. LHC was done recently and he has stable coronary artery disease with bypass grafts that are patent, no intervention necessary. Advised to continue medical management. Echocardiogram shows normal LV EF of 50% with normal LV size. Patient has been advised to continue aspirin and Plavix and statin along with Coreg. Patient was continued on DuoNeb breathing treatment and Symbicort. Patient does not have any further symptoms. States he feels better and wants to go home. He has no other acute events or complications during his stay. Patient has been explained about his condition and plan care in detail. He understood and agreed. No unanswered questions. Patient is being discharged in stable condition. - Time Spent with Patient Total time spent providing and/or coordinating discharge services: Less than 30 minutes - Constitutional Vitals: Temp Pulse Resp BP Pulse Ox 97.8 F 73 16 129/72 96 08/22/17 10:44 08/22/17 10:44 08/22/17 10:44 08/22/17 10:44 08/22/17 10:44 General appearance: Present: cooperative, A&O X 3, pleasant, no acute distress, answers questions appropriately - Head Head exam: Present: atraumatic - Eye Eye exam: Present: EOMI, PERRL - ENT ENT exam: Present: mucous membranes moist - Respiratory Respiratory exam: Present: CTAB. Absent: chest wall tenderness, rales, rhonchi , wheezes, tachypnea - Cardiovascular Cardiovascular exam: Present: RRR, +S1, +S2 - GI/Abdominal GI/Abdominal exam: Present: soft. Absent: distended, firm, guarding, tenderness - Extremities Exam Extremities exam: Present: radial pulses palpable and symmetrical. Absent: calf tenderness, cyanotic, pedal edema - Neurological Exam Neurological exam: Present: alert, CN II-XII intact, oriented X3, no focal deficits. Absent: pronater drift, facial droop, speech deficit
--- NOTE | 2017-08-22 12:32 | Neurology Progress Note ---
Date of Encounter: 08/22/17 Time of Encounter: 07:40 Assessment and Plan (1) Right sided weakness Current Visit: Yes Status: Acute Symptoms has resolved at this time it is not clear that indeed it was a true TIA or perhaps his weakness was related to underlying degenerative changes in his back regardless he has been doing well workup is negative no evidence of acute stroke on his MRI needed any critical stenosis in any of his cervical vasculature he has been maintained on aspirin and Plavix suggested that he should continue continued on statin and in your follow-up with his primary care for management of his underlying condition Subjective Interval history: Symptoms seem to be doing better his weakness has resolved workup including MRI of the brain as well as MRA all has been negative no evidence of any stroke or any critical stenosis is noted he has been maintained on aspirin and Plavix Objective - Constitutional Vitals: Temp Pulse Resp BP Pulse Ox 97.8 F 73 16 129/72 96 08/22/17 10:44 08/22/17 10:44 08/22/17 10:44 08/22/17 10:44 08/22/17 10:44 - Neurological Exam Motor Examination: Present: full strength in all major muscle groups Motor examination - left side: 02/24: deltoids, biceps, triceps, wrist flexion, wrist extension, hip flexors, music store manager, quadriceps, tibialis Anterior, toe extension (EHL), plantarflexion Sensation intact: Present: intact Mental Status Examination: Present: awake, alert, oriented to person, oriented to place, oriented to time, follows commands appropriately, answers questions appropriately, no agnosia, no aphasia, no aproxia Cranial nerve examination: Present: PERRL, EOMI, visual miller intact, corneal reflexes brisk symmetrically, sensory to face intact, mastication intact, no facial asymmetry is present, no dysarthria, hearing is intact symmetrically, soft palate elevates bilaterally upon phonation, gag reflex intact, flexes SCM and trapezius muscles symmetrically with full power, tongue protrudes midline, no atrophy or facial fasiculations present Cerebellar examination: Present: no dysmetria, performs finger to nose and heel to lopez symmetrically without ataxia, no gait ataxia, no truncal ataxia, no difficulty with rapid alternating movements Results - Laboratory Findings CBC and BMP: 08/21/17 04:49 08/21/17 04:49 Abnormal lab findings: Abnormal lab results RBC 3.78 M/mcL (4.19-5.50) L 08/21/17 04:49 Hgb 11.8 g/dL (12.9-16.9) L D 08/21/17 04:49 Hct 35.9 % (37.5-50.1) L 08/21/17 04:49 APTT 25.2 Seconds (26.0-36.0) L 08/20/17 17:00 Glucose 155 mg/dL (70-99) H 08/21/17 04:49 POC Glucose 102 (58-89) H 08/20/17 21:21 B-Natriuretic Peptide 502 pg/mL (0-100) H 08/20/17 17:00 Consult Discharge Plan - Plan Instructions: Nitroglycerin (By mouth), Clopidogrel (By mouth) Referrals: Miguel Ball MD [Primary Care Provider] - Prescriptions: Nitroglycerin 0.4 mg SL Q5MIN PRN #14 tab.subl PRN Reason: Chest Pain Clopidogrel [Plavix] 75 mg PO DAILY #30 tablet
--- NOTE | 2017-08-24 09:43 | Electrocardiograph Report ---
[address] [address] Test Date: 2017-08-18 Pat Name: Dae Alarcon Department: 113 Room: 3B Gender: M Registration Rep: : 1945 Requested By: Filiberto Figueroa Order Number: [id number] Reading MD: Nuvia Rubalcava Measurements Intervals [place] Rate: 74 P: 59 IA: 187 QRS: -23 QRSD: 150 T: 70 QT: 422 QTc: 449 Interpretive Statements SINUS RHYTHM WITH FREQUENT VENTRICULAR PREMATURE COMPLEXES IN A BIGEMINAL PATTERN LEFT BUNDLE BRANCH BLOCK Electronically Signed On 08-24-2017 9:42:12 EDT by Nuvia Rubalcava
== END 2017-08-22 14:20 | disposition home or self-care (01) ==
LOC: EMEROO 16:08 → 3BNU 16:08
PROVIDERS: ADMIT Hospitalist; ATTEND Registered Nurse

== ENCOUNTER 2017-08-28 11:31 | Inpatient (IN) ==
--- NOTE | 2017-08-28 11:55 | Emergency Department Note ---
Disposition Clinical Impression: Chest pain of uncertain etiology, Weakness of right lower extremity, Paresthesia of right upper limb, CVA (cerebral vascular accident) Disposition: Home, Self-Care Condition: Good General Adult HPI - General Chief complaint: ED Chest Pain Stated complaint: CP pins and needles r leg and arm Time Seen by Provider: 08/28/17 11:44 Source: patient Limitations: language barrier - History of Present Illness Pain Scale: 0 - Related Data Home Medications Medication Instructions Recorded Confirmed Albuterol Sulfate [Proair Hfa] 2 puff IH Q6H PRN 07/22/16 08/28/17 Atorvastatin [Lipitor] 40 mg PO HS 07/22/16 08/28/17 Cetirizine HCl [Zyrtec] 10 mg PO DAILY 07/22/16 08/28/17 Esomeprazole Magnesium [Nexium] 40 mg PO DAILY 07/22/16 08/28/17 Fluticasone/Salmeterol [Advair 1 puff IH Q12H 07/22/16 08/28/17 250-50 Diskus] OxyCODONE/APAP 7.5/325 [Percocet 1 each PO Q6H PRN 07/22/16 08/28/17 7.5/325 MG] Tiotropium [Spiriva] 18 mcg IH DAILY 07/22/16 08/28/17 Ondansetron HCl [Zofran] 4 - 8 mg PO TIDAC PRN 03/09/17 08/28/17 Carvedilol 3.125 mg PO BID 08/17/17 08/28/17 diazePAM [Valium] 5 mg PO Q48H 08/28/17 08/28/17 levoFLOXacin [Levaquin] 500 mg PO DAILY 08/28/17 08/28/17 Previous Rx's Medication Instructions Recorded Ranolazine [Ranexa] 1,000 mg PO BID #120 tab.er.12h 03/10/17 Aspirin 81 mg PO DAILY #30 tab.chew 08/19/17 Ipratropium/Albuterol Neb [Duoneb] 3 ml IH Q6HR PRN #30 inhsol 08/19/17 Isosorbide MONOnitrate (24 HR) 30 mg PO DAILY #30 tab.er.24h 08/19/17 [Imdur] predniSONE [PredniSONE] 20 mg PO DAILY #7 tablet 08/19/17 Clopidogrel [Plavix] 75 mg PO DAILY #30 tablet 08/22/17 Nitroglycerin 0.4 mg SL Q5MIN PRN #14 tab.subl 08/22/17 Allergies Allergy/AdvReac Type Severity Reaction Status Date / Time venlafaxine [From Effexor] AdvReac Vomiting Verified 08/17/17 16:32 Past Medical History - Past Medical History Medical history: Reports: COPD, coronary artery disease, CVA, GERD, hyperlipidemia, hypertension, myocardial infarction, other Surgical history: Reports: angioplasty/stent, coronary bypass (CABG), LE stent(s ) Psychiatric history: Reports: anxiety, depression - Social History Smoking Status: Former smoker Smokeless Tobacco Status: No Alcohol use: Reports: none Drug use: Reports: none Physical Exam - General Limitations: language barrier General appearance: alert, in no apparent distress Course Vital Signs Temperature 98.2 F 08/28/17 11:38 Pulse Rate 79 08/28/17 11:38 Respiratory Rate 18 08/28/17 11:38 Blood Pressure 128/81 08/28/17 11:38 O2 Sat by Pulse Oximetry 97 08/28/17 11:38 Temperature 97.9 F 08/29/17 10:42 Pulse Rate 87 08/29/17 10:42 Respiratory Rate 16 08/29/17 10:42 Blood Pressure 112/69 08/29/17 10:42 O2 Sat by Pulse Oximetry 92 08/29/17 10:42 Oxygen Delivery Oxygen Delivery Room Air Medical Decision Making - Lab Data Result diagrams: 08/29/17 04:45 08/29/17 04:45 Lab Results 08/28/17 08/28/17 08/28/17 Range/Units 12:06 12:06 12:06 WBC 8.9 (4.3-11.1) K/mcL RBC 4.32 (4.19-5.50) M/mcL Hgb 13.4 (12.9-16.9) g/dL Hct 40.6 (37.5-50.1) % MCV 94.0 (83.0-100.0) fL MCH 31.0 (28.0-33.3) pg MCHC 33.0 (31.6-35.5) g/dL RDW 14.1 (11.5-14.5) % Plt Count 236 (140-400) K/mcL MPV 9.7 (9.4-12.4) fL Immature Gran % 0.7 (0-4) % Seg Neutrophils % 84.1 % Lymphocytes % 9.1 % Monocytes % 4.8 % Eosinophils % 1.2 % Basophils % 0.1 % Neutrophils # 7.5 (1.6-8.9) K/mcL Lymphocytes # 0.8 (0.6-4.6) K/mcL Monocytes # 0.4 (0.0-1.3) K/mcL Eosinophils # 0.1 (0.0-0.6) K/mcL Basophils # 0.0 (0.0-0.2) K/mcL Sodium 136 (136-145) mEq/L Potassium 4.5 (3.5-4.5) mEq/L Chloride 102 (98-109) mEq/L Carbon Dioxide 21 (19-29) mEq/L BUN 19 (8-26) mg/dL Creatinine 0.95 (0.72-1.25) mg/dL Est GFR ( Amer) > 60 (> 60) Est GFR (Non-Af Amer) > 60 (> 60) BUN/Creatinine Ratio 20 (6-26) Glucose 142 H (70-99) mg/dL Calculated Osmolality 287 (280-300) Calcium 9.1 (8.6-10.8) mg/dL Troponin I 0.02 (0-0.03) ng/mL Attestation Statement - Attestation Attestation: I examined this patient and my medical decision-making was reviewed with the Resident Physician. I agree with the documented findings, disposition and treatment plan as described except to the extent set forth below. [id number] time provided Patient presents after having CP in the middle of the night - now resolved. He also describes RLE weakness and RUE paresthesia type symptoms (since hospital dc on 08/22/17). He appears in no acute distress on exam. EKG reviewed by me and compared to his previous study. Home medication list reviewed by me
--- NOTE | 2017-08-28 12:05 | Emergency Department Note ---
Disposition Clinical Impression: Chest pain of uncertain etiology, Weakness of right lower extremity, Paresthesia of right upper limb CVA (cerebral vascular accident) Qualifiers: CVA mechanism: unspecified Qualified Code(s): I63.9 - Cerebral infarction, unspecified Disposition: Home, Self-Care Condition: Good Instructions: Chest Pain (ED), Ischemic Stroke (GEN) Referrals: Miguel Ball MD [Primary Care Provider] - Meghann Harmon MD [Partnered Physician] - Forms: ED Satisfaction Letter Time of Disposition: 12:59 General Adult HPI - General Chief complaint: ED Chest Pain Stated complaint: CP pins and needles r leg and arm Time Seen by Provider: 08/28/17 11:44 Source: patient Limitations: language barrier Nursing Notes Reviewed: Yes Vital Signs Reviewed: Yes - History of Present Illness HPI Narrative: Mr. Alarcon, a 72yo male, presents from home with multiple complaints. He awoke this morning with midsternal sharp chest pain radiating to below his left scapula. Associated with diaphoresis. No dyspnea and no arm weakness. He also notes right lower extremity weakness onset 5 days ago with associated right upper extremity pins and needles also onset 5 days ago. He is concerned as he is not able to walk without a limp. He also notes dizziness described as difficulty maintaining his balance which each abuse to his right lower extremity ; no spinning of the room. At this time, he has no chest pain but his neurologic symptoms persist. He has associated headache described as frontal, intermittent. He has been compliant with his aspirin, Plavix, and statin. He is worried in that he believes with several small strokes he will eventually have, "the big one." ROS: Positive: Right lower symmetry weakness, right upper extremity pins and needles , headache, chest pain with diaphoresis. Negative: Fevers, chills, nausea, vomiting, chest palpitations, abdominal pain, changes in bowel or bladder, falls, vertigo. Pain Scale: 0 - Related Data Home Medications Medication Instructions Recorded Confirmed Albuterol Sulfate [Proair Hfa] 2 puff IH Q6H PRN 07/22/16 08/21/17 Atorvastatin [Lipitor] 40 mg PO HS 07/22/16 08/21/17 Cetirizine HCl [Zyrtec] 10 mg PO DAILY 07/22/16 08/21/17 Esomeprazole Magnesium [Nexium] 40 mg PO DAILY 07/22/16 08/21/17 Fluticasone/Salmeterol [Advair 1 puff IH Q12H 07/22/16 08/21/17 250-50 Diskus] OxyCODONE/APAP 7.5/325 [Percocet 1 each PO Q6H PRN 07/22/16 08/21/17 7.5/325 MG] Tiotropium [Spiriva] 18 mcg IH DAILY 07/22/16 08/21/17 Ondansetron HCl [Zofran] 4 - 8 mg PO TIDAC PRN 03/09/17 08/21/17 Carvedilol 3.125 mg PO BID 08/17/17 08/21/17 Previous Rx's Medication Instructions Recorded Ranolazine [Ranexa] 1,000 mg PO BID #120 tab.er.12h 03/10/17 Aspirin 81 mg PO DAILY #30 tab.chew 08/19/17 Ipratropium/Albuterol Neb [Duoneb] 3 ml IH Q6HR PRN #30 inhsol 08/19/17 Isosorbide MONOnitrate (24 HR) 30 mg PO DAILY #30 tab.er.24h 08/19/17 [Imdur] predniSONE [PredniSONE] 20 mg PO DAILY #7 tablet 08/19/17 Clopidogrel [Plavix] 75 mg PO DAILY #30 tablet 08/22/17 Nitroglycerin 0.4 mg SL Q5MIN PRN #14 tab.subl 08/22/17 Allergies Allergy/AdvReac Type Severity Reaction Status Date / Time venlafaxine [From Effexor] AdvReac Vomiting Verified 08/17/17 16:32 All systems ED: reviewed and negative except as stated. Review of Systems: As Per HPI Past Medical History - Past Medical History Medical history: Reports: COPD, coronary artery disease, CVA, GERD, hyperlipidemia, hypertension, myocardial infarction, other Surgical history: Reports: angioplasty/stent, coronary bypass (CABG), LE stent(s ) Psychiatric history: Reports: anxiety, depression - Social History Smoking Status: Former smoker Smokeless Tobacco Status: No Alcohol use: Reports: none Drug use: Reports: none Physical Exam Vital Signs Reviewed General: Patient is alert, oriented, and in no acute distress. HEENT: No facial asymmetry. Head is normocephalic and atraumatic. PERRLA, EOMI. Oral mucosa moist. Trachea midline. Cardiovascular: Heart regular rate and rhythm without clicks, rubs, gallops, or murmurs. No JVD. PMI nondisplaced. Respiratory: Symmetric chest rise with good respiratory effort. Bilateral breath sounds are clear without wheezing, crackles, or rhonchi. Abdomen: Bowel sounds present normoactive x-4 quadrants. Abdomen is soft, nondistended, and nontender. Musculoskeletal: Muscle strength 5/5 and symmetric bilaterally in bilateral upper and left lower extremity. Strength 4/5 in right lower extremity. No limb drift in upper or lower extremities. Neuro: Cranial nerves II through XII without deficit. Sensation light touch intact. Psych: Patient's affect is appropriate for situation. - General Limitations: language barrier General appearance: alert, in no apparent distress Course Course Narrative: His last normal was 5 days ago; no need for stroke alert at this time. Chart check shows, from his previous admission with discharge 08/22: EKG - sinus rhythm with no acute ST-T changes Troponin - negative CT head - no acute intracranial abnormality Chest x-ray - minimal left basilar atelectasis MRI brain - no acute intracranial abnormality, chronic small vessel ischemic changes MRA head and neck - no significant abnormality of the intracranial circulation, no significant abnormality of the neck vessels Echo: LVEF 50% with normal LV function. Carotid duplex: minimal plaques throughout BL carotid arteries. Neurology consult recommended medical management with aspirin, Plavix, statin as , per their workup, patient did not clearly have a TIA. Suspicion of unclear TIA vs degenerative changes. Comments were made in discharge summary of the patient's right lower extremity weakness secondary to TIA. The patient notes his right lower extremity weakness is new, comments made in the discharge summary from his previous admission showed that he had right lower extremity weakness at that time. We will perform chest pain workup with CT head. Lab work is unremarkable; specifically troponin below upper limit of normal. EKG does not show ST changes. Chest x-ray unremarkable per radiology reading. 13:30 I spoke with [facility] radiology, Dr. Hamm, who agrees the patient CT had as left parietal acute versus subacute infarct which is a new finding from the patient's most recent CT had. No hemorrhage. Given patient's symptom onset 5 days ago, this would clinically be a subacute infarct. I spoke with neurology, Dr. Sahu, who agrees to see the patient when he is in the floor. Advises aspirin at this time. Spoke with the admitting hospitalist, Dr. Keller, who agrees to accept the patient to medicine service for continued evaluation and management. I discussed all the above with the patient, his son, and . I discussed the meaning of ischemic stroke in the context of blood flow to cells as well as is very mild symptoms being reassuring. Patient is agreeable to admission for continued evaluation and management. He has no other questions at this time. Chest X-Ray 08/28/17 11:45 IMPRESSION: COPD without acute cardiopulmonary process identified. D/ / Ab Carpio MD / Ab Carpio MD Interpreting Provider: Ab Carpio MD Head CT 08/28/17 12:01 IMPRESSION: Subtle loss of the parry-white matter differentiation within the left parietal region suspicious for an acute versus subacute infarct given history of neurological deficits. Consider further evaluation with MRI to evaluate for extent and/or acuity. Otherwise stable exam from 08/20/2017. Critical results were called by Dr. Polly Hamm MD to Anjel Pitt on 08/28/2017 at 13:31. D/ / 08/28/2017 13:35:35 Polly Hamm MD / ryan Interpreting Provider: Polly Hamm MD Vital Signs Temperature 98.2 F 08/28/17 11:38 Pulse Rate 79 08/28/17 11:38 Respiratory Rate 18 08/28/17 11:38 Blood Pressure 128/81 08/28/17 11:38 O2 Sat by Pulse Oximetry 97 08/28/17 11:38 Temperature 98.2 F 08/28/17 11:38 Pulse Rate 68 08/28/17 12:51 Respiratory Rate 18 08/28/17 12:51 Blood Pressure 105/60 08/28/17 12:51 O2 Sat by Pulse Oximetry 94 08/28/17 12:51 Oxygen Delivery Oxygen Delivery Room Air Medical Decision Making - Medical Records Medical records reviewed: Yes I reviewed the patient's medical records. - Lab Data Lab results reviewed: Yes I reviewed the patient's lab results. Result diagrams: 08/28/17 12:06 08/28/17 12:06 Lab Results 08/28/17 08/28/17 08/28/17 Range/Units 12:06 12:06 12:06 WBC 8.9 (4.3-11.1) K/mcL RBC 4.32 (4.19-5.50) M/mcL Hgb 13.4 (12.9-16.9) g/dL Hct 40.6 (37.5-50.1) % MCV 94.0 (83.0-100.0) fL MCH 31.0 (28.0-33.3) pg MCHC 33.0 (31.6-35.5) g/dL RDW 14.1 (11.5-14.5) % Plt Count 236 (140-400) K/mcL MPV 9.7 (9.4-12.4) fL Immature Gran % 0.7 (0-4) % Seg Neutrophils % 84.1 % Lymphocytes % 9.1 % Monocytes % 4.8 % Eosinophils % 1.2 % Basophils % 0.1 % Neutrophils # 7.5 (1.6-8.9) K/mcL Lymphocytes # 0.8 (0.6-4.6) K/mcL Monocytes # 0.4 (0.0-1.3) K/mcL Eosinophils # 0.1 (0.0-0.6) K/mcL Basophils # 0.0 (0.0-0.2) K/mcL Sodium 136 (136-145) mEq/L Potassium 4.5 (3.5-4.5) mEq/L Chloride 102 (98-109) mEq/L Carbon Dioxide 21 (19-29) mEq/L BUN 19 (8-26) mg/dL Creatinine 0.95 (0.72-1.25) mg/dL Est GFR ( Amer) > 60 (> 60) Est GFR (Non-Af Amer) > 60 (> 60) BUN/Creatinine Ratio 20 (6-26) Glucose 142 H (70-99) mg/dL Calculated Osmolality 287 (280-300) Calcium 9.1 (8.6-10.8) mg/dL Troponin I 0.02 (0-0.03) ng/mL - Radiology Data Radiology results reviewed: Yes I reviewed the patient's radiology results. - EKG Data EKG #1 EKG attestation: Yes I reviewed and interpreted this EKG. EKG results narrative: EKG dated 28 August 2017 at 11:48-10 as sinus rhythm with a rate of 82. Baseline artifact. IA 159, QRS 148, QT/QTC 405/444. Mild interventricular conduction delay. Left bundle branch block. Nonspecific ST-T changes. Compared to previous EKG dated 08/20/2017 showing no acute ischemic changes comparison. NIH Stroke Scale - Level of Consciousness LOC: Alert - LOC Questions LOC Questions: Answers both correctly - LOC Commands LOC Commands: Performs both correctly - Best Gaze Best Gaze: Normal - Visual Visual: No visual loss - Facial Palsy Facial Palsy: Normal - Motor Arms Motor Arm-Left: No drift for 10 seconds Motor Arm-Right: No drift for 10 seconds Motor Arm-Comment: Bilateral strength 5/5. - Motor Legs Motor Leg-Left: No drift for 5 seconds Motor Leg-Right: No drift for 5 seconds Motor Leg Comment: Right muscle strength 4/5. Left muscle strength 5/5. - Limb Ataxia Limb Ataxia: Absent of affected limb too weak to perform exam - Sensory Sensory: Mild to moderate loss, "not as sharp" (Right upper extremity mild loss. ) - Best Language Best Language: No aphasia - Dysarthria Dysarthria: Normal - Extinction and Inattention Extinction and Inattention: Normal - NIHSS Total Score NIHSS Total Score: 1
[2017-08-28 12:16] LABS: Basophils % 0.1 %; Eosinophils # 0.1 K/mcL (0.0-0.6); Eosinophils % 1.2 %; Hematocrit 40.6 % (37.5-50.1); Hemoglobin 13.4 g/dL (12.9-16.9); Immature Granulocytes % 0.7 % (0-4); Lymphocytes # 0.8 K/mcL (0.6-4.6); Lymphocytes % 9.1 %; Mean Platelet Volume 9.7 fL (9.4-12.4); Monocytes # 0.4 K/mcL (0.0-1.3); Monocytes % 4.8 %; Neutrophils # 7.5 K/mcL (1.6-8.9); Platelet Count 236 K/mcL (140-400); Red Blood Count 4.32 M/mcL (4.19-5.50); Red Cell Distribution Width 14.1 % (11.5-14.5); Segmented Neutrophils % 84.1 %
[2017-08-28 12:30] LABS: BUN/Creatinine Ratio 20 (6-26); Blood Urea Nitrogen 19 mg/dL (8-26); Calcium 9.1 mg/dL (8.6-10.8); Carbon Dioxide 21 mEq/L (19-29); Chloride 102 mEq/L (98-109); Glucose 142 mg/dL (70-99); Osmolality,Calculated 287 (280-300); Potassium 4.5 mEq/L (3.5-4.5); Sodium 136 mEq/L (136-145); eGFR For African Americans > 60 (> 60); eGFR For Non-African Americans > 60 (> 60)
[2017-08-28] MEDS ORDERED: Aspirin 81 MG TAB.CHEW PO ONE (13:41)
--- NOTE | 2017-08-28 14:29 | Internal Med History&Physical ---
Date of Encounter: 08/28/17 Time of Encounter: 14:27 Assessment and Plan (1) CVA (cerebral vascular accident) Current visit: Yes Status: Acute Remote left CVA causing right-sided weakness and hemihypothesia. I have admitted patient on 08/20/2017 with similar presentation. Patient is out of window he had stroke workup prior admission. Will follow NIH stroke scale. Aspirin and statin. Telemetry monitoring to look if he has AFib. Physical therapy occupational therapy and social workers to see the patient. Neurology consult. Full code. Heparin and famotidine for DVT and PUD prophylaxis, respectively Qualifiers: CVA mechanism: unspecified Qualified Code(s): I63.9 - Cerebral infarction, unspecified Internal Medicine - H&P: HPI Chief complaint: right side weakness History of present illness: Mr. Alarcon is a 72 year old male presents to the emergency room today with the main component of right-sided numbness and weakness. I have admitted this patient on 08/20/2017with acute left CVA causing mild right-sided weakness. Patient mentioned that the onset of symptoms was 5 days ago. Patient denies any speech problems or facial assymetry. No otherwise complaints. EKG in the emergency room shows normal sinus rhythm Past Med Surg Social Fam HX - Past Medical History Medical history: COPD, coronary artery disease, CVA, GERD, hyperlipidemia, hypertension, myocardial infarction, other Psychiatric history: anxiety, depression - Past Surgical History Surgical History: angioplasty/stent, coronary bypass (CABG), LE stent(s) - Social History Smoking Status: Former smoker Smokeless Tobacco Status: No Alcohol use: none Drug use: none - Family History Brother Hx Family Cardiac Disorders: Yes ([place], Murmur) Hx Family Respiratory Disorders: No Hx Family Cancer: No Hx Family GI Disorders: No Hx Family Endocrine Disorder: No Hx Family Neuromuscular Disorders: No Hx Family Neurologic Disorders: No Hx Family HEENT Disorders: No Hx Family Autoimmune Disorders: No Mother Living Status: Hx Family Cancer: Yes Internal Medicine - H&P: Meds Albuterol Sulfate [Proair Hfa] 2 puff IH Q6H PRN 07/22/16 [History] Atorvastatin [Lipitor] 40 mg PO HS 07/22/16 [History] Cetirizine HCl [Zyrtec] 10 mg PO DAILY 07/22/16 [History] Esomeprazole Magnesium [Nexium] 40 mg PO DAILY 07/22/16 [History] Fluticasone/Salmeterol [Advair 250-50 Diskus] 1 puff IH Q12H 07/22/16 [History] OxyCODONE/APAP 7.5/325 [Percocet 7.5/325 MG] 1 each PO Q6H PRN 07/22/16 [History ] Tiotropium [Spiriva] 18 mcg IH DAILY 07/22/16 [History] Ondansetron HCl [Zofran] 4 - 8 mg PO TIDAC PRN 03/09/17 [History] Ranolazine [Ranexa] 1,000 mg PO BID #120 tab.er.12h 03/10/17 [Rx] Carvedilol 3.125 mg PO BID 08/17/17 [History] Aspirin 81 mg PO DAILY #30 tab.chew 08/19/17 [Rx] Ipratropium/Albuterol Neb [Duoneb] 3 ml IH Q6HR PRN #30 inhsol 08/19/17 [Rx] Isosorbide MONOnitrate (24 HR) [Imdur] 30 mg PO DAILY #30 tab.er.24h 08/19/17 [ Rx] predniSONE [PredniSONE] 20 mg PO DAILY #7 tablet 08/19/17 [Rx] Clopidogrel [Plavix] 75 mg PO DAILY #30 tablet 08/22/17 [Rx] Nitroglycerin 0.4 mg SL Q5MIN PRN #14 tab.subl 08/22/17 [Rx] diazePAM [Valium] 5 mg PO Q48H 08/28/17 [History] levoFLOXacin [Levaquin] 500 mg PO DAILY 08/28/17 [History] 3 Allergy/AdvReac Type Severity Reaction Status Date / Time venlafaxine [From Effexor] AdvReac Vomiting Verified 08/17/17 16:32 All Systems PM: A 10-system review of systems was performed and is negative for pertinent findings except as documented above in the HPI. Review of systems: 10 point review of systems is negative except for HPI - Constitutional Vitals: Temp Pulse Resp BP Pulse Ox 98.2 F 68 18 105/60 94 08/28/17 11:38 08/28/17 12:51 08/28/17 12:51 08/28/17 12:51 08/28/17 12:51 Exam: Gen.: patient is alert oriented times 3 cardiac: normal S1 S2 no additional sounds or murmurs chest: no active wheezing or bronchial breathing abdomen soft nontender nondistended normal bowel sounds lower extremity no swelling. Neuro: right side weakness, right side hemihypothesia. Internal Med - H&P Results - Labs CBC & Chem 7: 08/28/17 12:06 08/28/17 12:06
[2017-08-28] MEDS ORDERED: Ipratropium/Albuterol Neb 3 ML IH PRN (14:34)
[2017-08-28] MEDS ORDERED: diazePAM 5 MG TABLET PO SCH (14:45)
[2017-08-28] MEDS ORDERED: *HR* OxyCODONE/APAP 7.5/325 TABLET PO PRN (15:43)
--- NOTE | 2017-08-28 15:52 | Neurology - Consult Note ---
Date of Encounter: 08/28/17 Time of Encounter: 15:49 Assessment and Plan (1) CVA (cerebrovascular accident due to intracerebral hemorrhage) Current Visit: No Status: Suspected CT scan of the brain does reveal an acute/acute infarction in the left parietal lobe lesion. I presume that this is likely secondary to either an intracranial stenosis, versus a cardioembolic phenomenon. However he has had extensive testing with the last admission which included MRI of the brain, MRA of the brain, MRA of the neck. No abnormalities were present. Echocardiogram at that time was unrevealing as well. I would recommend considering transesophageal echocardiogram. Otherwise, I would simply recommend maintaining aspirin 81 mg daily along with Plavix. Stroke protocol orders should be implemented. Aggressive management of his hypertension, hyperlipidemia are PARAMOUNT. Statins and antihypertensives are certainly in order. He may need a short course of outpatient rehabilitation therapy to further strengthen his right upper and right lower extremity. I do not feel that any other testing is necessary at this juncture. I will reevaluate him at your request. Qualifiers: Intracerebral hemorrhage etiology: nontraumatic Cerebral hemorrhage location: unspecified cerebral location Laterality: unspecified laterality Qualified Code(s): I61.9 - Nontraumatic intracerebral hemorrhage, unspecified History of Present Illness HPI: Mr. Alarcon is a 72 year old male who is seen for neurologic consultation secondary to paresthesias of the right upper extremity and weakness of the right lower extremity. This gentleman was recently hospitalized here at the end of July for similar symptoms. He awakened during the night with complaints of chest pain. He still complains of weakness of the right leg which is been present for 5 days along with right upper extremity paresthesias and frontal headache. He has been on aspirin and Plavix as well as statin therapy. A CT scan of the brain completed at the time of this admission revealed evidence of a subacute or acute left parietal lobe infarction. He was given aspirin in the ED at the time of admission. When he was last here he was seen and evaluated on 08/22/2017 by neurology. At that time MRI scan of the brain MRA scan of the brain MRA scan of the neck while negative. He has also had echocardiogram completed on 08/17/2017 was negative. He does have a past medical history of hypertension, hyperlipidemia, previous stroke, coronary artery disease and CT. Past Med Surg Social Fam HX - Past Medical History Medical history: COPD, coronary artery disease, CVA, GERD, hyperlipidemia, hypertension, myocardial infarction, other Psychiatric history: anxiety, depression - Past Surgical History Surgical History: angioplasty/stent, coronary bypass (CABG), LE stent(s) - Social History Smoking Status: Former smoker Smokeless Tobacco Status: No Alcohol use: none Drug use: none - Family History Brother Hx Family Cardiac Disorders: Yes (CT, Murmur) Hx Family Respiratory Disorders: No Hx Family Cancer: No Hx Family GI Disorders: No Hx Family Endocrine Disorder: No Hx Family Neuromuscular Disorders: No Hx Family Neurologic Disorders: No Hx Family HEENT Disorders: No Hx Family Autoimmune Disorders: No Mother Living Status: Hx Family Cancer: Yes Medications and Allergies Albuterol Sulfate [Proair Hfa] 2 puff IH Q6H PRN 07/22/16 [History] Atorvastatin [Lipitor] 40 mg PO HS 07/22/16 [History] Cetirizine HCl [Zyrtec] 10 mg PO DAILY 07/22/16 [History] Esomeprazole Magnesium [Nexium] 40 mg PO DAILY 07/22/16 [History] Fluticasone/Salmeterol [Advair 250-50 Diskus] 1 puff IH Q12H 07/22/16 [History] OxyCODONE/APAP 7.5/325 [Percocet 7.5/325 MG] 1 each PO Q6H PRN 07/22/16 [History ] Tiotropium [Spiriva] 18 mcg IH DAILY 07/22/16 [History] Ondansetron HCl [Zofran] 4 - 8 mg PO TIDAC PRN 03/09/17 [History] Ranolazine [Ranexa] 1,000 mg PO BID #120 tab.er.12h 03/10/17 [Rx] Carvedilol 3.125 mg PO BID 08/17/17 [History] Aspirin 81 mg PO DAILY #30 tab.chew 08/19/17 [Rx] Ipratropium/Albuterol Neb [Duoneb] 3 ml IH Q6HR PRN #30 inhsol 08/19/17 [Rx] Isosorbide MONOnitrate (24 HR) [Imdur] 30 mg PO DAILY #30 tab.er.24h 08/19/17 [ Rx] predniSONE [PredniSONE] 20 mg PO DAILY #7 tablet 08/19/17 [Rx] Clopidogrel [Plavix] 75 mg PO DAILY #30 tablet 08/22/17 [Rx] Nitroglycerin 0.4 mg SL Q5MIN PRN #14 tab.subl 08/22/17 [Rx] diazePAM [Valium] 5 mg PO Q48H 08/28/17 [History] levoFLOXacin [Levaquin] 500 mg PO DAILY 08/28/17 [History] 3 Allergy/AdvReac Type Severity Reaction Status Date / Time venlafaxine [From Effexor] AdvReac Vomiting Verified 08/17/17 16:32 All Systems: A 10-system review of systems was performed and is negative for pertinent findings except as documented above in the HPI. Review of Systems: 10 point Review of systems is consistent with the history of present illness and otherwise negative. Physical Examination - Vital Signs Vital Signs: Initial Vital Signs Temp Pulse Resp BP Pulse Ox 98.2 F 79 18 128/81 97 08/28/17 11:38 08/28/17 11:38 08/28/17 11:38 08/28/17 11:38 08/28/17 11:38 - Neurologic Motor examination - right side: 4/5: deltoids, biceps, triceps, chronic care nurse, hip flexors, tibialis Anterior, quadriceps, toe extension (EHL), plantarflexion Motor examination - left side: 5/5: deltoids, biceps, triceps, hip flexors, chronic care nurse , quadriceps, tibialis Anterior, toe extension (EHL), plantarflexion Detailed sensory examination: other (Past hemihypesthesia of the right arm and leg present.) Reflex and gait examination: other (Deep tendon reflexes are diminished throughout. No clonus or Babinski are present.) Mental Status Examination: awake, alert, oriented to person, oriented to place, oriented to time, follows commands appropriately, answers questions appropriately, no agnosia, no aphasia, no aproxia Cranial nerve examination: PERRL, EOMI, visual miller intact, corneal reflexes brisk symmetrically, sensory to face intact, mastication intact, no facial asymmetry is present, no dysarthria, hearing is intact symmetrically, soft palate elevates bilaterally upon phonation, gag reflex intact, flexes SCM and trapezius muscles symmetrically with full power, tongue protrudes midline, no atrophy or facial fasiculations present Cerebellar examination: no dysmetria, performs finger to nose and heel to lopez symmetrically without ataxia, no gait ataxia, no truncal ataxia, no difficulty with rapid alternating movements Results - Laboratory Findings CBC and BMP: 08/28/17 12:06 08/28/17 12:06 Abnormal lab findings: Abnormal lab results Glucose 142 mg/dL (70-99) H 08/28/17 12:06 Consult Discharge Plan - Plan Referrals: Miguel Ball MD [Primary Care Provider] -
[2017-08-28] MEDS: Budesonide/Formoterol 80/4.5 MDI IH SCH ×2 (15:56→20:34)
[2017-08-28] MEDS: *HR* Heparin 5,000 UNIT/ML VIAL SQ SCH (18:01)
[2017-08-28] MEDS: Ranolazine 500 MG TAB.ER.12H PO SCH (20:03)
[2017-08-29 05:18] LABS: Basophils % 0.2 %; Eosinophils # 0.2 K/mcL (0.0-0.6); Hematocrit 41.7 % (37.5-50.1); Hemoglobin 13.6 g/dL (12.9-16.9); Immature Granulocytes % 0.8 % (0-4); Lymphocytes % 23.2 %; Mean Corpuscular HGB Conc 32.6 g/dL (31.6-35.5); Mean Corpuscular Hemoglobin 30.8 pg (28.0-33.3); Mean Corpuscular Volume 94.6 fL (83.0-100.0); Mean Platelet Volume 10.1 fL (9.4-12.4); Monocytes # 0.6 K/mcL (0.0-1.3); Monocytes % 6.6 %; Neutrophils # 5.8 K/mcL (1.6-8.9); Platelet Count 224 K/mcL (140-400); Red Blood Count 4.41 M/mcL (4.19-5.50); Red Cell Distribution Width 14.1 % (11.5-14.5); Segmented Neutrophils % 67.2 %
[2017-08-29 05:34] LABS: BUN/Creatinine Ratio 18 (6-26); Blood Urea Nitrogen 17 mg/dL (8-26); Calcium 9.2 mg/dL (8.6-10.8); Carbon Dioxide 26 mEq/L (19-29); Chloride 104 mEq/L (98-109); Glucose 117 mg/dL (70-99); Magnesium 2.3 mg/dL (1.6-2.6); Osmolality,Calculated 291 (280-300); Potassium 4.1 mEq/L (3.5-4.5); Sodium 139 mEq/L (136-145); eGFR For African Americans > 60 (> 60); eGFR For Non-African Americans > 60 (> 60)
[2017-08-29] MEDS: *HR* Heparin 5,000 UNIT/ML VIAL SQ SCH ×2 (05:52→17:14)
[2017-08-29] MEDS: Budesonide/Formoterol 80/4.5 MDI IH SCH ×2 (08:01→22:37)
[2017-08-29] MEDS: Tiotropium 18 MCG inhalation IH SCH (08:01)
[2017-08-29] MEDS: Ranolazine 500 MG TAB.ER.12H PO SCH ×2 (08:24→21:09)
[2017-08-29] MEDS ORDERED: Aspirin 81 MG TAB.CHEW PO SCH (09:00)
[2017-08-29] MEDS ORDERED: Famotidine 20 MG/2 ML VIAL IVP SCH (09:00)
--- NOTE | 2017-08-29 17:30 | Internal Med Progress Note ---
Date of Encounter: 08/29/17 Time of Encounter: 14:50 - Assessment and plan (1) CVA (cerebral vascular accident) Current Visit: Yes Status: Acute Assessment and plan: Remote left CVA causing right-sided weakness and hemihypothesia, which have resolved. Patient was recently admitted on 08/20/2017 with similar presentation. Patient is out of window and he had an extensive stroke workup prior admission. Patient was seen by neurology this time. He suspects that the CVA is likely secondary to either an intracranial stenosis versus a cardioembolic phenomenon. During last workup, everything was negative. He had an echocardiogram at that time that was unrevealing. Neurology has recommended a DEMOND which is ordered for morning. She will continue aspirin 81 mg as well as Plavix. We will aggressively monitored manages hypertension and hyperlipidemia. Physical therapy and occupational therapy do not recognize any needs after discharge. Patient has returned to baseline and has no neurological deficits or weaknesses. Continue telemetry DEMOND in the morning. Continue aspirin and Plavix, as well as statin. Qualifiers: CVA mechanism: unspecified Qualified Code(s): I63.9 - Cerebral infarction, unspecified (2) Coronary artery disease Current Visit: Yes Status: Chronic Assessment and plan: Patient denies any chest pain. Continue home medications and telemetry. Qualifiers: Coronary Disease-Associated Artery/Lesion type: [place] artery [place] vs. transplanted heart: [place] heart Associated angina: without angina Qualified Code(s): I25.10 - Atherosclerotic heart disease of [place] coronary artery without angina pectoris (3) Essential hypertension Current Visit: Yes Status: Chronic Assessment and plan: We will monitor him aggressively manage his hypertension. It has been well controlled in the inpatient setting. Currently at home he takes Imdur and a very dose low dose of a beta sofia. Will continue. (4) Hyperlipidemia Current Visit: Yes Status: Chronic Assessment and plan: Lipid panel appeared to be within normal limits at the end of July,. Will continue statin on discharge. Qualifiers: Hyperlipidemia type: mixed hyperlipidemia Qualified Code(s): E78.2 - Mixed hyperlipidemia (5) COPD (chronic obstructive pulmonary disease) Current Visit: Yes Status: Chronic Assessment and plan: No acute exacerbation at this time. He is not requiring supplemental oxygen. His lungs are clear throughout. He denies any new cough or shortness of breath. Chest x-ray is negative. Continue home medications. Qualifiers: COPD type: unspecified COPD Qualified Code(s): J44.9 - Chronic obstructive pulmonary disease, unspecified - Time Spent With Patient less than 15 minutes - Subjective Interval history: Patient was seen and assessed at bedside at 1450. Family at bedside. All questions answered. Patient has returned to baseline function and there is no PT OT needed at this time. Patient has had extensive workup for CVA. Neurology has recommended a DEMOND. Is ordered for tomorrow. Patient will most likely discharge if no acute, emergent findings. Patient is aware and agreeable to plan. He denies headache, nausea vomiting, diarrhea, abdominal pain, syncope, vision changes, weakness or unsteady gait. - Constitutional Vitals: Temp Pulse Resp BP Pulse Ox 97.7 F 76 16 109/68 92 08/29/17 15:04 08/29/17 15:04 08/29/17 15:04 08/29/17 15:04 08/29/17 15:04 General appearance: Present: cooperative, A&O X 3, pleasant, answers questions appropriately - Head Head exam: Present: atraumatic, normal inspection, normocephalic - Eye Eye exam: Present: normal appearance, conjuntiva pink, sclera anicteric Pupils: Present: PERRL - Neck Neck exam general surgery: Present: supple, trachea midline. Absent: lymphadenopathy, tenderness - Respiratory Respiratory exam: Present: CTAB. Absent: accessory muscle use, chest wall tenderness, decreased breath sounds, rales, rhonchi, wheezes - Cardiovascular Cardiovascular exam: Present: RRR, +S1, +S2. Absent: diastolic murmur, gallop, rubs, systolic murmur - GI/Abdominal GI/Abdominal exam: Present: normal bowel sounds, soft. Absent: distended, hepatomegaly, tenderness - Extremities Exam Extremities exam: Present: normal capillary refill, normal inspection, warm, radial pulses palpable and symmetrical. Absent: calf tenderness, cyanotic, pedal edema, tenderness - Neurological Exam Neurological exam: Present: alert, normal gait, oriented X3, no focal deficits, strengths equal and symetr throughout. Absent: altered, motor sensory deficit, facial droop, speech deficit - Skin Skin exam: Present: dry, intact, normal color, warm. Absent: rash Internal Medicine: Result - Labs CBC & Chem 7: 08/29/17 04:45 08/29/17 04:45 Labs: Short CBC 08/29/17 Range/Units 04:45 WBC 8.7 (4.3-11.1) K/mcL Hgb 13.6 (12.9-16.9) g/dL Hct 41.7 (37.5-50.1) % Plt Count 224 (140-400) K/mcL Neutrophils # 5.8 (1.6-8.9) K/mcL BMP 08/29/17 04:45 Sodium 139 Potassium 4.1 Chloride 104 Carbon Dioxide 26 BUN 17 Creatinine 0.95 Glucose 117 H Calcium 9.2 Consult Discharge Plan - Plan Instructions: Hyperlipidemia (GEN) Referrals: Miguel Ball MD [Primary Care Provider] -
[2017-08-30] MEDS: *HR* Heparin 5,000 UNIT/ML VIAL SQ SCH (06:05)
--- NOTE | 2017-08-30 06:24 | Electrocardiograph Report ---
[address] [place] [address] Test Date: 2017-08-28 Pat Name: Dae Alarcon Department: [id number] Room: 3B Gender: M [employer]: MSC : 1945 Requested By: Anjel Pitt Order Number: [id number] Reading MD: Tyrese Romo MD Measurements Intervals Wendel Rate: 82 P: 68 RI: 159 QRS: -16 QRSD: 148 T: 78 QT: 405 QTc: 444 Interpretive Statements SINUS RHYTHM BASELINE ARTIFACT LEFT ATRIAL ENLARGEMENT ATYPICAL LBBB Electronically Signed On 08-30-2017 6:22:53 EST by Tyrese Romo MD
[2017-08-30] MEDS: Budesonide/Formoterol 80/4.5 MDI IH SCH (08:08)
[2017-08-30] MEDS: Tiotropium 18 MCG inhalation IH SCH (08:08)
[2017-08-30] MEDS ORDERED: 0.9 % Sodium Chloride 500 ML IVC ONE (10:17)
[2017-08-30] MEDS ORDERED: Tetracaine/Benzocaine/Butamben 200MG/SPRAY (100SPY/BOT) MM ONE (10:17)
[2017-08-30 10:34] VITALS: BP 114/80
[2017-08-30] MEDS: *HR* Midazolam HCl 5 MG/5 ML VIAL IVP PRN ×2 (11:10→11:15)
[2017-08-30] MEDS: *HR* FentaNYL (PF) 100 MCG/2 ML VIAL IVP PRN ×2 (11:10→11:15)
--- NOTE | 2017-08-30 14:44 | Discharge Summary ---
Date of Encounter: 08/30/17 Time of Encounter: 09:45 - Discharge Diagnosis (1) CVA (cerebral vascular accident) Priority: Primary Status: Acute Comments: Remote left CVA causing right-sided weakness and hemihypothesia, which have resolved. Patient was recently admitted on 08/20/2017 with similar presentation. Patient is out of window and he had an extensive stroke workup prior admission. Patient was seen by neurology during this admission. He suspects that the CVA is likely secondary to either an intracranial stenosis versus a cardioembolic phenomenon. During last workup, everything was negative. He had an echocardiogram at that time that was unrevealing. Neurology recommended a DEMOND which showed an LVEF of 50-55%, paradoxical motion consistent with postoperative status, right ventricle was normal size and systolic function. There is normal inflow/outflow velocity, no evidence of inter atrial shunting, mild MR, no cardiac source of emboli identified. Patient had lipid panel done last admission, 08/21/17, all values were within normal limits. She has been normotensive during this admission. He will continue aspirin 81 mg as well as Plavix. We will aggressively manages hypertension and hyperlipidemia. Physical therapy and occupational therapy do not recognize any needs after discharge. Patient has returned to baseline and has no neurological deficits or weaknesses. He is appropriate and safe for discharge. Qualifiers: CVA mechanism: unspecified Qualified Code(s): I63.9 - Cerebral infarction, unspecified (2) Coronary artery disease Priority: Secondary Status: Chronic Comments: Patient denies any chest pain. Continue home medications and telemetry. Plan as above. Qualifiers: Coronary Disease-Associated Artery/Lesion type: [place] artery [place] vs. transplanted heart: [place] heart Associated angina: without angina Qualified Code(s): I25.10 - Atherosclerotic heart disease of [place] coronary artery without angina pectoris (3) Essential hypertension Priority: Secondary Status: Chronic Comments: Patient has been normotensive during admission. Patient currently takes Imdur and the low dose of beta sofia at home. Will continue. Patient will need close monitoring and aggressive management of hypertension by primary care after discharge. (4) Hyperlipidemia Priority: Secondary Status: Chronic Comments: Labs within normal limits in July. Plan as above. Qualifiers: Hyperlipidemia type: mixed hyperlipidemia Qualified Code(s): E78.2 - Mixed hyperlipidemia (5) COPD (chronic obstructive pulmonary disease) Priority: Secondary Status: Chronic Comments: Patient has no acute exacerbation at this time. He is not requiring supplemental oxygen to maintain his sats. Lungs are clear throughout. He has no new cough or shortness of breath. Chest x-ray is negative. Continue home medications. He is in no respiratory distress, no rhonchi, no rails and no wheezing. Qualifiers: COPD type: unspecified COPD Qualified Code(s): J44.9 - Chronic obstructive pulmonary disease, unspecified - Discharge Medications Home Medications: Albuterol Sulfate [Proair Hfa] 2 puff IH Q6H PRN 07/22/16 [History] Atorvastatin [Lipitor] 40 mg PO HS 07/22/16 [History] Cetirizine HCl [Zyrtec] 10 mg PO DAILY 07/22/16 [History] Esomeprazole Magnesium [Nexium] 40 mg PO DAILY 07/22/16 [History] Fluticasone/Salmeterol [Advair 250-50 Diskus] 1 puff IH Q12H 07/22/16 [History] OxyCODONE/APAP 7.5/325 [Percocet 7.5/325 MG] 1 each PO Q6H PRN 07/22/16 [History ] Tiotropium [Spiriva] 18 mcg IH DAILY 07/22/16 [History] Ondansetron HCl [Zofran] 4 - 8 mg PO TIDAC PRN 03/09/17 [History] Ranolazine [Ranexa] 1,000 mg PO BID #120 tab.er.12h 03/10/17 [Rx] Carvedilol 3.125 mg PO BID 08/17/17 [History] Aspirin 81 mg PO DAILY #30 tab.chew 08/19/17 [Rx] Ipratropium/Albuterol Neb [Duoneb] 3 ml IH Q6HR PRN #30 inhsol 08/19/17 [Rx] Isosorbide MONOnitrate (24 HR) [Imdur] 30 mg PO DAILY #30 tab.er.24h 08/19/17 [ Rx] predniSONE [PredniSONE] 20 mg PO DAILY #7 tablet 08/19/17 [Rx] Clopidogrel [Plavix] 75 mg PO DAILY #30 tablet 08/22/17 [Rx] Nitroglycerin 0.4 mg SL Q5MIN PRN #14 tab.subl 08/22/17 [Rx] diazePAM [Valium] 5 mg PO Q48H 08/28/17 [History] levoFLOXacin [Levaquin] 500 mg PO DAILY 08/28/17 [History] Allergies/Adverse Reactions: 3 Allergy/AdvReac Type Severity Reaction Status Date / Time venlafaxine [From Effexor] AdvReac Vomiting Verified 08/17/17 16:32 Date of admission: 08/29/17 17:51 Primary care physician: Miguel Ball MD Discharging clinician: Ambar Jo Anticipated date of discharge: 08/30/17 - Patient Status Disposition: Home, Self-Care Condition: Good Functional capacity at discharge: independent ambulation Overall status at discharge: patient is back to baseline - Discharge Instructions Instructions: Hyperlipidemia (GEN) Follow Up With: Miguel Ball MD [Primary Care Provider] - 09/07/17 9:30 am Additional Instructions: Follow up with your PCP in the next 7-10 days for follow-up visit. Continue your normal home medications. Resume your normal activities and diet as tolerated. Return to the emergency department as needed for any other problems or concerns , or if symptoms return or worsen. - Diet and Activity Activity: increase activity as tolerated Diet: advance to your usual diet Hospital course: Please see assessment and plan for hospital course. - Time Spent with Patient Total time spent providing and/or coordinating discharge services: Less than 30 minutes - Constitutional Vitals: Temp Pulse Resp BP Pulse Ox 97.7 F 73 12 114/80 93 08/30/17 10:30 08/30/17 10:30 08/30/17 10:30 08/30/17 10:30 08/30/17 10:30 General appearance: Present: cooperative, A&O X 3, pleasant, no acute distress, answers questions appropriately - Head Head exam: Present: atraumatic, normal inspection, normocephalic - Eye Eye exam: Present: normal appearance, conjuntiva pink, sclera anicteric - Neck Neck exam general surgery: Present: supple, trachea midline - Respiratory Respiratory exam: Present: CTAB. Absent: accessory muscle use, chest wall tenderness, decreased breath sounds, rales, respiratory distress, rhonchi, wheezes - Cardiovascular Cardiovascular exam: Present: RRR, +S1, +S2. Absent: diastolic murmur, gallop, rubs, systolic murmur - GI/Abdominal GI/Abdominal exam: Present: normal bowel sounds, soft. Absent: distended, hepatomegaly, tenderness - Extremities Exam Extremities exam: Present: normal capillary refill, normal inspection, warm, radial pulses palpable and symmetrical. Absent: calf tenderness, cyanotic, pedal edema - Neurological Exam Neurological exam: Present: alert, normal gait, oriented X3, no focal deficits, strengths equal and symetr throughout. Absent: altered, motor sensory deficit, pronater drift, facial droop, speech deficit - Skin Skin exam: Present: dry, intact, normal color, rash, warm
== END 2017-08-30 15:48 | disposition home or self-care (01) | DRG 65 ==
LOC: 3BNU 11:31 → EMEROO 11:31 → 3BNU 14:30
PROVIDERS: ADMIT Registered Nurse; ATTEND Registered Nurse

== ENCOUNTER 2017-08-31 15:55 | Observation (INO) ==
[2017-08-31 16:38] LABS: Basophils % 0.6 %; Eosinophils # 0.5 K/mcL (0.0-0.6); Eosinophils % 6.8 %; Hematocrit 44.7 % (37.5-50.1); Hemoglobin 14.7 g/dL (12.9-16.9); Immature Granulocytes % 1.7 % (0-4); Lymphocytes # 1.5 K/mcL (0.6-4.6); Lymphocytes % 20.9 %; Mean Corpuscular HGB Conc 32.9 g/dL (31.6-35.5); Mean Corpuscular Hemoglobin 31.4 pg (28.0-33.3); Mean Corpuscular Volume 95.5 fL (83.0-100.0); Mean Platelet Volume 9.8 fL (9.4-12.4); Monocytes # 0.5 K/mcL (0.0-1.3); Monocytes % 6.4 %; Neutrophils # 4.6 K/mcL (1.6-8.9); Platelet Count 196 K/mcL (140-400); Red Blood Count 4.68 M/mcL (4.19-5.50); Red Cell Distribution Width 13.9 % (11.5-14.5); Segmented Neutrophils % 63.6 %
[2017-08-31 16:48] LABS: INR 1.1; Prothrombin Time 11.4 Seconds (9.4-12.1)
[2017-08-31 16:51] LABS: Activated Partial Thrombo Time 25.5 Seconds (26.0-36.0)
[2017-08-31] MEDS ORDERED: Metoclopramide 10 MG/2 ML VIAL IVP ONE (16:53)
--- NOTE | 2017-08-31 16:54 | Emergency Department Note ---
Disposition Clinical Impression: Neurosensory deficit Disposition: Admitted As Inpatient Time of Disposition: 17:53 Neuro HPI - General Chief Complaint: ED Neuro Symptoms/Deficit Stated Complaint: Numbness right leg/arm-started 2 hrs ago Time Seen by Provider: 08/31/17 16:08 Source: patient Limitations: no limitations Nursing Notes Reviewed: Yes Vital Signs Reviewed: Yes - History of Present Illness HPI Narrative: Mr. Alarcon, 72-year-old male, presents from home for evaluation of right sided neurologic deficits. Described as decreased sensation and decrease in strength with associated headache and dizziness. Onset approximate 14:00. Patient has history of recurrent TIA. On Plavix and aspirin. Patient is understandably concerned and very vigilant about his symptoms as he has a very good friend who is his same age who is in a prison after debilitating stroke. ROS: Positive: Right lower symmetry weakness, right upper extremity pins and needles , headache, dizziness Negative: Chest pain, Fevers, chills, nausea, vomiting, chest palpitations, abdominal pain, changes in bowel or bladder, falls, vertigo. - Related Data Home Medications: Home Medications Medication Instructions Recorded Confirmed Albuterol Sulfate [Proair Hfa] 2 puff IH Q6H PRN 07/22/16 08/31/17 Atorvastatin [Lipitor] 40 mg PO HS 07/22/16 08/31/17 Cetirizine HCl [Zyrtec] 10 mg PO DAILY 07/22/16 08/31/17 Esomeprazole Magnesium [Nexium] 40 mg PO DAILY 07/22/16 08/31/17 Fluticasone/Salmeterol [Advair 1 puff IH Q12H 07/22/16 08/31/17 250-50 Diskus] OxyCODONE/APAP 7.5/325 [Percocet 1 each PO Q6H PRN 07/22/16 08/31/17 7.5/325 MG] Tiotropium [Spiriva] 18 mcg IH DAILY 07/22/16 08/31/17 Ondansetron HCl [Zofran] 4 - 8 mg PO TIDAC PRN 03/09/17 08/31/17 Carvedilol 3.125 mg PO BID 08/17/17 08/31/17 diazePAM [Valium] 5 mg PO Q48H 08/28/17 08/31/17 levoFLOXacin [Levaquin] 500 mg PO DAILY 08/28/17 08/31/17 predniSONE [PredniSONE] See Taper PO DAILY 08/31/17 08/31/17 Previous Rx's Medication Instructions Recorded Ranolazine [Ranexa] 1,000 mg PO BID #120 tab.er.12h 03/10/17 Aspirin 81 mg PO DAILY #30 tab.chew 08/19/17 Ipratropium/Albuterol Neb [Duoneb] 3 ml IH Q6HR PRN #30 inhsol 08/19/17 Isosorbide MONOnitrate (24 HR) 30 mg PO DAILY #30 tab.er.24h 08/19/17 [Imdur] Clopidogrel [Plavix] 75 mg PO DAILY #30 tablet 08/22/17 Nitroglycerin 0.4 mg SL Q5MIN PRN #14 tab.subl 08/22/17 Allergies/Adverse Reactions: Allergies Allergy/AdvReac Type Severity Reaction Status Date / Time venlafaxine [From Effexor] AdvReac Vomiting Verified 08/31/17 16:01 All systems ED: reviewed and negative except as stated. Review of Systems: As Per HPI Past Medical History - Past Medical History Medical history: Reports: COPD, coronary artery disease, CVA, GERD, hyperlipidemia, hypertension, myocardial infarction, other Surgical history: Reports: angioplasty/stent, coronary bypass (CABG), LE stent(s ) Psychiatric history: Reports: anxiety, depression - Social History Smoking Status: Former smoker Smokeless Tobacco Status: No Alcohol use: Reports: none Drug use: Reports: none Physical Exam Vital Signs Reviewed General: Patient is alert, oriented, and in no acute distress. HEENT: No facial asymmetry. Head is normocephalic and atraumatic. PERRLA, EOMI with left horizontal nystagmus. Because moist. Trachea midline. Cardiovascular: Heart regular rate and rhythm without clicks, rubs, gallops, or murmurs. No JVD. PMI nondisplaced. Bilateral radial posterior tibial pulses 2 /4 equal. No pedal edema. Respiratory: Symmetric chest rise with good respiratory effort. Bilateral breath sounds are clear without wheezing, crackles, or rhonchi. Abdomen: Bowel sounds present normoactive x-4 quadrants. Abdomen is soft, nondistended, and nontender. No organomegaly noted. Musculoskeletal: Muscle strength 5/5 and symmetric bilaterally in upper and lower extremities. DTRs 2/4 and symmetric bilaterally in upper and lower extremities. Neuro: Cranial nerves II through XII without deficit. Sensation light touch intact. No pronator drift. No limb drift. Slight right-sided ataxia on finger to nose. Negative [id number]. Slight decrease in sensation of right upper and lower extremity to light touch. Psych: Patient's affect is appropriate for situation. - General Limitations: no limitations General appearance: alert Course Course Narrative: Code stroke: This patient. An IHSS [address] head negative for hemorrhage. [facility] neurology evaluated the patient with myself bedside; is not a TPA candidate given the lack of severity of his symptoms. Telemetry neurologist recommended admission for MRI. If negative, recommended considering alternate diagnoses such as complex migraine as patient's TIA-like symptoms have been occurring concordant with headache and no acute ischemia on advanced imaging. 17:20 During his stay in the emergency department, patient's symptoms slowly improved. At this time, he denies any change in sensation from right to left in the upper or lower extremity. He is no longer ataxic on finger to nose. I discussed the patient with the admitting hospitalist, Dr. Haro, who accepts the patient for continued evaluation and management. Vital Signs Temperature 97.5 F L 08/31/17 16:01 Pulse Rate 73 08/31/17 16:01 Respiratory Rate 20 08/31/17 16:01 Blood Pressure 130/77 08/31/17 16:01 O2 Sat by Pulse Oximetry 96 08/31/17 16:01 Temperature 97.5 F L 08/31/17 16:01 Pulse Rate 65 08/31/17 18:00 Respiratory Rate 16 08/31/17 18:00 Blood Pressure 116/65 08/31/17 18:00 O2 Sat by Pulse Oximetry 98 08/31/17 17:45 Oxygen Delivery Oxygen Delivery Room Air Neuro Symptoms/Deficit - Medical Records Medical records reviewed: Yes I reviewed the patient's medical records. - Lab Data Lab results reviewed: Yes I reviewed the patient's lab results. Result diagrams: 08/31/17 16:32 08/31/17 16:59 Lab Results 08/31/17 08/31/17 08/31/17 Range/Units 16:32 16:32 16:32 WBC 7.2 (4.3-11.1) K/mcL RBC 4.68 (4.19-5.50) M/mcL Hgb 14.7 (12.9-16.9) g/dL Hct 44.7 (37.5-50.1) % MCV 95.5 (83.0-100.0) fL MCH 31.4 (28.0-33.3) pg MCHC 32.9 (31.6-35.5) g/dL RDW 13.9 (11.5-14.5) % Plt Count 196 (140-400) K/mcL MPV 9.8 (9.4-12.4) fL Immature Gran % 1.7 (0-4) % Seg Neutrophils % 63.6 % Lymphocytes % 20.9 % Monocytes % 6.4 % Eosinophils % 6.8 % Basophils % 0.6 % Neutrophils # 4.6 (1.6-8.9) K/mcL Lymphocytes # 1.5 (0.6-4.6) K/mcL Monocytes # 0.5 (0.0-1.3) K/mcL Eosinophils # 0.5 (0.0-0.6) K/mcL Basophils # 0.0 (0.0-0.2) K/mcL PT 11.4 (9.4-12.1) Seconds INR 1.1 APTT 25.5 L (26.0-36.0) Seconds Sodium (136-145) mEq/L Potassium (3.5-4.5) mEq/L Chloride (98-109) mEq/L Carbon Dioxide (19-29) mEq/L BUN (8-26) mg/dL Creatinine (0.72-1.25) mg/dL Est GFR ( Amer) (> 60) Est GFR (Non-Af Amer) (> 60) BUN/Creatinine Ratio (6-26) Glucose (70-99) mg/dL Calculated Osmolality (280-300) Calcium (8.6-10.8) mg/dL Troponin I 0.02 (0-0.03) ng/mL Specimen Rejected 08/31/17 08/31/17 Range/Units 16:32 16:59 WBC (4.3-11.1) K/mcL RBC (4.19-5.50) M/mcL Hgb (12.9-16.9) g/dL Hct (37.5-50.1) % MCV (83.0-100.0) fL MCH (28.0-33.3) pg MCHC (31.6-35.5) g/dL RDW (11.5-14.5) % Plt Count (140-400) K/mcL MPV (9.4-12.4) fL Immature Gran % (0-4) % Seg Neutrophils % % Lymphocytes % % Monocytes % % Eosinophils % % Basophils % % Neutrophils # (1.6-8.9) K/mcL Lymphocytes # (0.6-4.6) K/mcL Monocytes # (0.0-1.3) K/mcL Eosinophils # (0.0-0.6) K/mcL Basophils # (0.0-0.2) K/mcL PT (9.4-12.1) Seconds INR APTT (26.0-36.0) Seconds Sodium 137 (136-145) mEq/L Potassium 4.4 (3.5-4.5) mEq/L Chloride 103 (98-109) mEq/L Carbon Dioxide 24 (19-29) mEq/L BUN 18 (8-26) mg/dL Creatinine 0.93 (0.72-1.25) mg/dL Est GFR ( Amer) > 60 (> 60) Est GFR (Non-Af Amer) > 60 (> 60) BUN/Creatinine Ratio 19 (6-26) Glucose 116 H (70-99) mg/dL Calculated Osmolality 287 (280-300) Calcium 8.8 (8.6-10.8) mg/dL Troponin I (0-0.03) ng/mL Specimen Rejected Hemolyzed - Radiology Data Radiology results reviewed: Yes I reviewed the patient's radiology results. Head CT 08/31/17 16:14 IMPRESSION: No acute intracranial abnormality. Critical results were called by Dr. Elder Pierson MD to Dr. Michelle Perez on 08/31/2017 at 16:35. D/ / Elder Pierson MD / Elder Piesron MD Interpreting Provider: Elder Pierson MD - EKG Data EKG attestation: Yes I reviewed and interpreted this EKG. EKG results narrative: EKG dated 31 August 2017 at 16:17 interpreted as sinus rhythm with rate of 69. Normal intervals of care 193, QRS 153, QT/QTc 458/478. Left axis. Left bundle branch block which is appropriately discordant. Compared to previous dated 08/28/2017 also showing left bundle branch block; no acute ischemic changes and comparison. NIH Stroke Scale - Level of Consciousness LOC: Alert - LOC Questions LOC Questions: Answers both correctly - LOC Commands LOC Commands: Performs both correctly - Best Gaze Best Gaze: Normal - Visual Visual: No visual loss - Facial Palsy Facial Palsy: Normal - Motor Arms Motor Arm-Left: No drift for 10 seconds Motor Arm-Right: No drift for 10 seconds - Motor Legs Motor Leg-Left: No drift for 5 seconds Motor Leg-Right: No drift for 5 seconds - Limb Ataxia Limb Ataxia: Present in ONE limb - Sensory Sensory: Mild to moderate loss, "not as sharp" - Best Language Best Language: No aphasia - Dysarthria Dysarthria: Normal - Extinction and Inattention Extinction and Inattention: Normal - NIHSS Total Score NIHSS Total Score: 2 Attestation Statement - Attestation Attestation: I examined this patient and my medical decision-making was reviewed with the Resident Physician. I agree with the documented findings, disposition and treatment plan as described except to the extent set forth below. Patient to ED with a chief complaint of right arm and leg tingling. Onset 2 hours prior to arrival. Patient with history of the same. On examination he is a sensory discrepancy in the right arm and leg. He also some mild ataxia of the right upper extremity. Plan. Stroke alert called. CT unremarkable. Evaluated by telesyroke neurologist. Not a TPA candidate. Concern for possible complex migraine. Recommending admission for MRI.
[2017-08-31] MEDS ORDERED: Aspirin 81 MG TAB.CHEW PO ONE (16:56)
[2017-08-31 17:22] LABS: BUN/Creatinine Ratio 19 (6-26); Blood Urea Nitrogen 18 mg/dL (8-26); Calcium 8.8 mg/dL (8.6-10.8); Carbon Dioxide 24 mEq/L (19-29); Chloride 103 mEq/L (98-109); Glucose 116 mg/dL (70-99); Osmolality,Calculated 287 (280-300); Potassium 4.4 mEq/L (3.5-4.5); Sodium 137 mEq/L (136-145); eGFR For African Americans > 60 (> 60); eGFR For Non-African Americans > 60 (> 60)
[2017-08-31] MEDS ORDERED: *HR* OxyCODONE/APAP 7.5/325 TABLET PO PRN (22:51)
[2017-08-31] MEDS ORDERED: diazePAM 5 MG TABLET PO SCH (23:00)
--- NOTE | 2017-08-31 23:05 | Internal Med History&Physical ---
Date of Encounter: 08/31/17 Time of Encounter: 23:00 Assessment and Plan (1) CVA (cerebral vascular accident) Current visit: Yes Status: Acute Left CVA. I have admitted patient with a similar presentation twice before. I am not sure of the patient physical exam goes back to baseline or not but according to the patient is symptoms resolves completely before it happens again. He mentioned that since discharge from the hospital a few days ago is right-sided weakness had completely resolved and started again today at 2 PM. Etiology unclear. He may be having an embolic phenomena. We will keep on telemetry monitoring. May benefit from Holter monitoring on discharge to look for age of fibrillation. Another differential entertained by [facility] neurologist is hemiplegic migraine. He did have a headache with onset of symptoms. Will ask for neurology input. Patient did have transesophageal echo yesterday and showed no evidence of left atrial or left atrial appendage thrombi. Will ask physical therapy occupational therapy to see the patient heparin famotidine for DVT and peptic ulcer disease prophylaxis. NIH stroke scale Q4 hours. Whole blood pressure medications and allow for permissive hypotension. Patient is full code Qualifiers: Qualified Code(s): I63.9 - Cerebral infarction, unspecified Internal Medicine - H&P: HPI Chief complaint: right side weakness and numbness History of present illness: Mr. Alarcon is a 72 year old male presents the emergency room today with the main complain of right-sided weakness and numbness. This is the patient's 3rd presentation was similar complain over the past 2 weeks. Patient describes the current right-sided weakness which is waxing and waning. Today at approximately 2 PM he started noticing weakness on the right side and dizziness. His symptoms improved gradually and during my exam, there was very minimal weakness in the distal right upper extremity. Patient has been a normal sinus rhythm has no prior history of rates for fibrillation. Patient is an aspirin Plavix. Past Med Surg Social Fam HX - Past Medical History Medical history: COPD, coronary artery disease, CVA, GERD, hyperlipidemia, hypertension, myocardial infarction, other Psychiatric history: anxiety, depression - Past Surgical History Surgical History: angioplasty/stent, coronary bypass (CABG), LE stent(s) - Social History Smoking Status: Former smoker Smokeless Tobacco Status: No Alcohol use: none Drug use: none - Family History Brother Living Status: Hx Family Cardiac Disorders: Yes Hx Family Respiratory Disorders: No Hx Family Cancer: No Hx Family GI Disorders: No Hx Family Endocrine Disorder: No Hx Family Neuromuscular Disorders: No Hx Family Neurologic Disorders: No Hx Family HEENT Disorders: No Hx Family Autoimmune Disorders: No Mother Living Status: Hx Family Cancer: Yes Father Living Status: Hx Family Cancer: Yes Internal Medicine - H&P: Meds Albuterol Sulfate [Proair Hfa] 2 puff IH Q6H PRN 07/22/16 [History] Atorvastatin [Lipitor] 40 mg PO HS 07/22/16 [History] Cetirizine HCl [Zyrtec] 10 mg PO DAILY 07/22/16 [History] Esomeprazole Magnesium [Nexium] 40 mg PO DAILY 07/22/16 [History] Fluticasone/Salmeterol [Advair 250-50 Diskus] 1 puff IH Q12H 07/22/16 [History] OxyCODONE/APAP 7.5/325 [Percocet 7.5/325 MG] 1 each PO Q6H PRN 07/22/16 [History ] Tiotropium [Spiriva] 18 mcg IH DAILY 07/22/16 [History] Ondansetron HCl [Zofran] 4 - 8 mg PO TIDAC PRN 03/09/17 [History] Ranolazine [Ranexa] 1,000 mg PO BID #120 tab.er.12h 03/10/17 [Rx] Carvedilol 3.125 mg PO BID 08/17/17 [History] Aspirin 81 mg PO DAILY #30 tab.chew 08/19/17 [Rx] Ipratropium/Albuterol Neb [Duoneb] 3 ml IH Q6HR PRN #30 inhsol 08/19/17 [Rx] Isosorbide MONOnitrate (24 HR) [Imdur] 30 mg PO DAILY #30 tab.er.24h 08/19/17 [ Rx] Clopidogrel [Plavix] 75 mg PO DAILY #30 tablet 08/22/17 [Rx] Nitroglycerin 0.4 mg SL Q5MIN PRN #14 tab.subl 08/22/17 [Rx] diazePAM [Valium] 5 mg PO Q48H 08/28/17 [History] levoFLOXacin [Levaquin] 500 mg PO DAILY 08/28/17 [History] predniSONE [PredniSONE] See Taper PO DAILY 08/31/17 [History] 3 Allergy/AdvReac Type Severity Reaction Status Date / Time venlafaxine [From Effexor] AdvReac Vomiting Verified 08/31/17 16:01 All Systems PM: A 10-system review of systems was performed and is negative for pertinent findings except as documented above in the HPI. Review of systems: 10 point review of systems is negative except for HPI - Constitutional Vitals: Temp Pulse Resp BP Pulse Ox 97.9 F 71 16 126/62 91 08/31/17 22:56 08/31/17 22:56 08/31/17 22:56 08/31/17 22:56 08/31/17 22:56 Exam: General: Patient is A&O X3 Cardiac: normal S1, S2, no additional sounds or murmurs Chest: Clear to auscultation bilaterally Abdomen: soft, nontender, non distended, normal BS. Neuro: Right arm weakness 4/5. Internal Med - H&P Results - Labs CBC & Chem 7: 08/31/17 16:32 08/31/17 16:59
[2017-09-01] MEDS ORDERED: Ipratropium/Albuterol Neb 3 ML IH PRN (04:00)
[2017-09-01 05:55] LABS: Basophils % 0.4 %; Eosinophils # 0.4 K/mcL (0.0-0.6); Eosinophils % 6.1 %; Hematocrit 40.6 % (37.5-50.1); Hemoglobin 13.5 g/dL (12.9-16.9); Immature Granulocytes % 1.2 % (0-4); Lymphocytes # 1.5 K/mcL (0.6-4.6); Lymphocytes % 21.7 %; Mean Corpuscular HGB Conc 33.3 g/dL (31.6-35.5); Mean Corpuscular Hemoglobin 31.5 pg (28.0-33.3); Mean Corpuscular Volume 94.9 fL (83.0-100.0); Mean Platelet Volume 9.9 fL (9.4-12.4); Monocytes # 0.5 K/mcL (0.0-1.3); Monocytes % 7.3 %; Neutrophils # 4.3 K/mcL (1.6-8.9); Platelet Count 182 K/mcL (140-400); Red Blood Count 4.28 M/mcL (4.19-5.50); Segmented Neutrophils % 63.3 %
[2017-09-01] MEDS ORDERED: *HR* Heparin 5,000 UNIT/ML VIAL SQ SCH (06:00)
[2017-09-01 06:26] LABS: BUN/Creatinine Ratio 18 (6-26); Blood Urea Nitrogen 17 mg/dL (8-26); Calcium 8.7 mg/dL (8.6-10.8); Carbon Dioxide 27 mEq/L (19-29); Chloride 105 mEq/L (98-109); Glucose 113 mg/dL (70-99); Magnesium 2.2 mg/dL (1.6-2.6); Osmolality,Calculated 286 (280-300); Potassium 4.6 mEq/L (3.5-4.5); Sodium 137 mEq/L (136-145); eGFR For African Americans > 60 (> 60); eGFR For Non-African Americans > 60 (> 60)
--- NOTE | 2017-09-01 07:50 | Neurology - Consult Note ---
Date of Encounter: 09/01/17 Time of Encounter: 07:48 Assessment and Plan (1) Paresthesias with subjective weakness Current Visit: Yes Status: Acute The patient was recently here and had a complete workup for transient ischemia/ stroke which was unrevealing. At this point in time his symptoms have completely resolved. Apparently he did have a headache associated with these symptoms so perhaps migraine would be in the differential particularly if he has a prior history of migraine. Otherwise I will simply obtain another MRI scan of the brain with diffusion imaging to corroborate the findings on the CAT scan along with his clinical symptomatology. If the MRI scan remains unchanged and does not reveal evidence of left hemispheric abnormality then I would attribute the symptoms to anxiety related factors. I do not feel is necessary to repeat the MRA scans of the brain, neck. Maintain his antiplatelet regimen as it is currently. History of Present Illness HPI: Mr. Alarcon is a 72 year old male who was recently seen on 08/28/2017 due to the same symptoms of right-sided paresthesias and dizziness. At that time he had complete workup which included MRI of the brain, MRA of the brain and MRA of the neck none of which revealed significant abnormality. He states that symptoms of right sided paresthesias onset abruptly while he was sitting and watching television. Symptoms persisted for about an hour now resolved. He feels me that he is under a tremendous amount of stress due to moving out of his home, and his son has legal problems. He also mentioned that his primary care provider has been titrating him down from Valium 10 mg to Valium 5 mg daily. Currently he is awake and alert and very concerned. He gives a lucid history. CT scan was completed at the time of admission and the radiologist questioned whether or not there may be evidence of infarct in the left parietal lobe region. Past Med Surg Social Fam HX - Past Medical History Medical history: COPD, coronary artery disease, CVA, GERD, hyperlipidemia, hypertension, myocardial infarction, other Psychiatric history: anxiety, depression - Past Surgical History Surgical History: angioplasty/stent, coronary bypass (CABG), LE stent(s) - Social History Smoking Status: Former smoker Smokeless Tobacco Status: No Alcohol use: none Drug use: none - Family History Brother Living Status: Hx Family Cardiac Disorders: Yes Hx Family Respiratory Disorders: No Hx Family Cancer: No Hx Family GI Disorders: No Hx Family Endocrine Disorder: No Hx Family Neuromuscular Disorders: No Hx Family Neurologic Disorders: No Hx Family HEENT Disorders: No Hx Family Autoimmune Disorders: No Mother Living Status: Hx Family Cancer: Yes Father Living Status: Hx Family Cancer: Yes Medications and Allergies Albuterol Sulfate [Proair Hfa] 2 puff IH Q6H PRN 07/22/16 [History] Atorvastatin [Lipitor] 40 mg PO HS 07/22/16 [History] Cetirizine HCl [Zyrtec] 10 mg PO DAILY 07/22/16 [History] Esomeprazole Magnesium [Nexium] 40 mg PO DAILY 07/22/16 [History] Fluticasone/Salmeterol [Advair 250-50 Diskus] 1 puff IH Q12H 07/22/16 [History] OxyCODONE/APAP 7.5/325 [Percocet 7.5/325 MG] 1 each PO Q6H PRN 07/22/16 [History ] Tiotropium [Spiriva] 18 mcg IH DAILY 07/22/16 [History] Ondansetron HCl [Zofran] 4 - 8 mg PO TIDAC PRN 03/09/17 [History] Ranolazine [Ranexa] 1,000 mg PO BID #120 tab.er.12h 03/10/17 [Rx] Carvedilol 3.125 mg PO BID 08/17/17 [History] Aspirin 81 mg PO DAILY #30 tab.chew 08/19/17 [Rx] Ipratropium/Albuterol Neb [Duoneb] 3 ml IH Q6HR PRN #30 inhsol 08/19/17 [Rx] Isosorbide MONOnitrate (24 HR) [Imdur] 30 mg PO DAILY #30 tab.er.24h 08/19/17 [ Rx] Clopidogrel [Plavix] 75 mg PO DAILY #30 tablet 08/22/17 [Rx] Nitroglycerin 0.4 mg SL Q5MIN PRN #14 tab.subl 08/22/17 [Rx] diazePAM [Valium] 5 mg PO Q48H 08/28/17 [History] levoFLOXacin [Levaquin] 500 mg PO DAILY 08/28/17 [History] predniSONE [PredniSONE] See Taper PO DAILY 08/31/17 [History] 3 Allergy/AdvReac Type Severity Reaction Status Date / Time venlafaxine [From Effexor] AdvReac Vomiting Verified 08/31/17 16:01 All Systems: A 10-system review of systems was performed and is negative for pertinent findings except as documented above in the HPI. Review of Systems: 10 point review of systems is consistent with a history of present illness and otherwise negative. Physical Examination - Vital Signs Vital Signs: Initial Vital Signs Temp Pulse Resp BP Pulse Ox 97.5 F L 73 20 130/77 96 08/31/17 16:01 08/31/17 16:01 08/31/17 16:01 08/31/17 16:01 08/31/17 16:01 - Neurologic Detailed motor examination: full strength in all major muscle groups Motor examination - right side: 5/5: deltoids, biceps, triceps, wrist flexion, wrist extension, glass designer, hip flexors, tibialis Anterior, quadriceps, toe extension (EHL), plantarflexion Motor examination - left side: 5/5: deltoids, biceps, triceps, wrist flexion, wrist extension, hip flexors, glass designer, quadriceps, tibialis Anterior, toe extension (EHL), plantarflexion Mental Status Examination: awake, alert, oriented to person, oriented to place, oriented to time, follows commands appropriately, answers questions appropriately, no agnosia, no aphasia, no aproxia Cranial nerve examination: PERRL, EOMI, visual miller intact, corneal reflexes brisk symmetrically, sensory to face intact, mastication intact, no facial asymmetry is present, no dysarthria, hearing is intact symmetrically, soft palate elevates bilaterally upon phonation, gag reflex intact, flexes SCM and trapezius muscles symmetrically with full power, tongue protrudes midline, no atrophy or facial fasiculations present Cerebellar examination: no dysmetria, performs finger to nose and heel to lopez symmetrically without ataxia, no gait ataxia, no truncal ataxia, no difficulty with rapid alternating movements Results - Laboratory Findings CBC and BMP: 09/01/17 05:30 09/01/17 05:30 Abnormal lab findings: Abnormal lab results APTT 25.5 Seconds (26.0-36.0) L 08/31/17 16:32 Potassium 4.6 mEq/L (3.5-4.5) H 09/01/17 05:30 Glucose 113 mg/dL (70-99) H 09/01/17 05:30 POC Glucose 119 (58-89) H 08/31/17 16:14 Consult Discharge Plan - Plan Referrals: Miguel Ball MD [Primary Care Provider] -
[2017-09-01] MEDS ORDERED: Ranolazine 500 MG TAB.ER.12H PO SCH (09:00)
[2017-09-01] MEDS ORDERED: Aspirin 81 MG TAB.CHEW PO SCH (09:00)
[2017-09-01] MEDS ORDERED: Budesonide/Formoterol 80/4.5 MDI IH SCH (10:00)
--- NOTE | 2017-09-01 14:51 | Discharge Summary ---
Date of Encounter: 09/01/17 Time of Encounter: 12:50 - Discharge Diagnosis (1) TIA (transient ischemic attack) Priority: Primary Status: Acute Comments: Patient returns for readmission for same symptoms. Patient was recently discharged 2 days ago for same, right-sided weakness. He reports that prior to discharge from the hospital 2 days ago, right-sided weakness had completely resolved and started again yesterday prior to admission at 2 PM. Patient was put of the stroke care in the emergency department last night he was seen by [facility] neurology with a differential possibly being hemiplegic migraine. Neurology here does not feel that this is possible due to patient's advanced age. He did report a headache with the onset of symptoms, he denies history of migraines in the past. Patient has no weakness at this time. His gait is steady, speech is clear, balance steady. Strength is 4/5 in all extremities. + facial symmetry. Patient had another MRI today. Intracranial abnormality, specifically no acute infarct. There is minimal periventricular and subcortical white matter signal abnormality compatible with chronic microvascular ischemic changes. Neurology is aware of results of this new MRI, no new recommendations and no change to plan. Patient's head CT is negative for any acute intracranial abnormality. His vitals were all within normal limits, his labs are stable and within normal limits. Patient reports increased stress at home due to some legal trouble with his son well as recent decrease in value from 10 mg to 5 mg. Patient is also having a lot of stress due to moving out of his home. She will need to follow-up with his primary care provider CHRIS and his level of anxiety, possible referral to mental health counseling. The patient will continue aspirin, Plavix, Lipitor and discharge. Qualifiers: Transient cerebral ischemia type: carotid artery syndrome (hemispheric) Qualified Code(s): G45.1 - Carotid artery syndrome (hemispheric) (2) Coronary artery disease Priority: Secondary Status: Chronic Comments: Patient denies any chest pain. Continue aspirin, statin, Ranexa Qualifiers: Coronary Disease-Associated Artery/Lesion type: [place] artery [place] vs. transplanted heart: [place] heart Associated angina: without angina Qualified Code(s): I25.10 - Atherosclerotic heart disease of [place] coronary artery without angina pectoris (3) Hyperlipidemia Priority: Secondary Status: Chronic Comments: Patient is on a statin. Continue after discharge. Qualifiers: Hyperlipidemia type: mixed hyperlipidemia Qualified Code(s): E78.2 - Mixed hyperlipidemia (4) COPD (chronic obstructive pulmonary disease) Priority: Secondary Status: Chronic Comments: No acute exacerbation. Patient is not requiring any supplemental oxygen. He is not short of breath. Lungs are clear throughout, There is no wheezing, rhonchi, Rales or distress. Continue home medications Qualifiers: COPD type: unspecified COPD Qualified Code(s): J44.9 - Chronic obstructive pulmonary disease, unspecified (5) Right sided weakness Priority: Secondary Status: Acute Comments: Patient has been seen 3 times for this. He has had multiple MRIs, MRAs, workup. He has been seen by neurology. Differentials include migraine versus anxiety/stress. Patient will need to follow-up with primary care for continued workup. Patient denies weakness at this time and physical exam is unremarkable. Plan as above (6) Paresthesias with subjective weakness Priority: Secondary Status: Acute (7) DVT prophylaxis Priority: Secondary Status: Acute Comments: Heparin SQ - Discharge Medications Home Medications: Albuterol Sulfate [Proair Hfa] 2 puff IH Q6H PRN 07/22/16 [History] Atorvastatin [Lipitor] 40 mg PO HS 07/22/16 [History] Cetirizine HCl [Zyrtec] 10 mg PO DAILY 07/22/16 [History] Esomeprazole Magnesium [Nexium] 40 mg PO DAILY 07/22/16 [History] Fluticasone/Salmeterol [Advair 250-50 Diskus] 1 puff IH Q12H 07/22/16 [History] OxyCODONE/APAP 7.5/325 [Percocet 7.5/325 MG] 1 each PO Q6H PRN 07/22/16 [History ] Tiotropium [Spiriva] 18 mcg IH DAILY 07/22/16 [History] Ondansetron HCl [Zofran] 4 - 8 mg PO TIDAC PRN 03/09/17 [History] Ranolazine [Ranexa] 1,000 mg PO BID #120 tab.er.12h 03/10/17 [Rx] Carvedilol 3.125 mg PO BID 08/17/17 [History] Aspirin 81 mg PO DAILY #30 tab.chew 08/19/17 [Rx] Ipratropium/Albuterol Neb [Duoneb] 3 ml IH Q6HR PRN #30 inhsol 08/19/17 [Rx] Isosorbide MONOnitrate (24 HR) [Imdur] 30 mg PO DAILY #30 tab.er.24h 08/19/17 [ Rx] Clopidogrel [Plavix] 75 mg PO DAILY #30 tablet 08/22/17 [Rx] Nitroglycerin 0.4 mg SL Q5MIN PRN #14 tab.subl 08/22/17 [Rx] diazePAM [Valium] 5 mg PO Q48H 08/28/17 [History] levoFLOXacin [Levaquin] 500 mg PO DAILY 08/28/17 [History] predniSONE [PredniSONE] See Taper PO DAILY 08/31/17 [History] Allergies/Adverse Reactions: 3 Allergy/AdvReac Type Severity Reaction Status Date / Time venlafaxine [From Effexor] AdvReac Vomiting Verified 08/31/17 16:01 Procedures/tests Complete & Pending: Procedures Performed prior 72 hours Category Date Time Status MR head/brain wo con [MR] Stat MRI 09/01/17 07:56 Completed ECG 12 lead ECG [ECG] Routine Y 08/31/17 16:17 Completed Date of admission: 08/31/17 17:59 Primary care physician: Miguel Ball MD Consults: 08/31/17 22:48 Consult to Occupational Therapy [CONS] Routine Comment: Evaluate, develop and implement POC Reason for Consult: weakness Consult to Physical Therapy [CONS] Routine Comment: Evaluate, develop and implement POC Reason for Consult: weakness Consult to Speech Therapy [CONS] Routine Comment: Evaluate, develop and implement POC Reason for Consult: CVA Call Completed: No 08/31/17 22:51 Consult to Neurology [CONS] Routine Consulting Provider: Neurology [facility] Reason for Consult: CVA Call Completed: No Discharging clinician: Ambar Jo Anticipated date of discharge: 09/01/17 - Patient Status Disposition: Home, Self-Care Condition: Good Functional capacity at discharge: independent ambulation Overall status at discharge: patient is back to baseline - Discharge Instructions Follow Up With: Miguel Ball MD [Primary Care Provider] - Additional Instructions: Please follow up with PCP in the next 7-10 days Return to the ER as needed for any other problems or concerns. Return to your normal activites and diet as tolerated Please speak with your doctor regarding referral to counseling for stress - Diet and Activity Activity: increase activity as tolerated Diet: advance to your usual diet Interval History: Please see assessment and plan for hospital course. Hospital course: Mr. Alarcon is a 72 year old male - Time Spent with Patient Total time spent providing and/or coordinating discharge services: Less than 30 minutes - Constitutional Vitals: Temp Pulse Resp BP Pulse Ox 98 F 72 16 112/63 94 09/01/17 11:39 09/01/17 11:39 09/01/17 11:39 09/01/17 11:39 09/01/17 11:39 General appearance: Present: cooperative, A&O X 3, pleasant, no acute distress, answers questions appropriately - Head Head exam: Present: atraumatic, normal inspection, normocephalic - Eye Eye exam: Present: EOMI, normal appearance, conjuntiva pink, sclera anicteric. Absent: nystagmus Pupils: Present: PERRL - Neck Neck exam general surgery: Present: normal inspection, supple, trachea midline. Absent: lymphadenopathy, tenderness - Respiratory Respiratory exam: Present: CTAB. Absent: accessory muscle use, chest wall tenderness, rales, respiratory distress, rhonchi, wheezes - Cardiovascular Cardiovascular exam: Present: RRR, +S1, +S2. Absent: diastolic murmur, gallop, rubs, systolic murmur - GI/Abdominal GI/Abdominal exam: Present: normal bowel sounds, soft. Absent: distended, hepatomegaly, tenderness - Extremities Exam Extremities exam: Present: normal capillary refill, normal inspection, warm, radial pulses palpable and symmetrical. Absent: calf tenderness, cyanotic, pedal edema - Neurological Exam Neurological exam: Present: alert, CN II-XII intact, oriented X3, no focal deficits, strengths equal and symetr throughout. Absent: altered, motor sensory deficit, facial droop, speech deficit - Skin Skin exam: Present: dry, intact, normal color, warm. Absent: rash
[2017-09-01 15:48] VITALS: BP 123/70
--- NOTE | 2017-09-01 19:05 | Electrocardiograph Report ---
[place] [id number] Test Date: 2017-08-31 Pat Name: Dae Alarcon Department: 103 Room: 3B Gender: M Applied Exercise Physiologist: : [id number] Requested By: Ambar Jo Order Number: [id number] Reading MD: Tyrese Romo MD Measurements Intervals Yoder Rate: 69 P: 71 ID: [id number] QRS: -19 QRSD: 153 T: 78 QT: 458 QTc: 478 Interpretive Statements SINUS RHYTHM LEFT BUNDLE BRANCH BLOCK BASELINE ARTIFACT Electronically Signed On 09-01-2017 19:03:40 EST by Tyrese Romo MD
== END 2017-09-01 16:46 | disposition home or self-care (01) ==
LOC: 3BNU 15:55 → EMEROO 15:55 → 3BNU 20:25
PROVIDERS: ADMIT Hospitalist; ATTEND Registered Nurse